=== PATIENT | male | born 1940 | race African-American/Black ===

== ENCOUNTER 2017-05-22 14:40 | Inpatient (IN) | payer MEDICAID, MEDICARE ==
[2017-05-22] MEDS ORDERED: NACL 0.9% 500 ML 500 ML IV ONE (15:38)
--- NOTE | 2017-05-22 16:15 | XRay Report ---
Single view chest: Compared to 01/10/15. History: Possible sepsis. Findings: Normal cardiomediastinal silhouette. Trachea is midline. Suspicion of faint infiltrates left lower lobe not seen previously. Normal CP angles. Impression: Suspicion of infiltrates left lower lobe.
[2017-05-22 16:34] LABS: Hematocrit 37.7 % (35.5-45.6); Hemoglobin 12.7 gm/dl (11.8-15.2); Mean Corpuscular HGB Conc 34 % (32-34); Mean Corpuscular Hemoglobin 30 pg (28-32); Mean Corpuscular Volume 89 fl (84-94); Platelet Count 224 K/mm3 (140-440); Red Blood Count 4.23 M/mm3 (3.65-5.03); Red Cell Distribution Width 13.9 % (13.2-15.2)
[2017-05-22 16:42] LABS: INR 1.06 (0.87-1.13)
[2017-05-22 16:46] LABS: Alanine Aminotransferase 138 units/L (7-56); Albumin 3.2 g/dL (3.9-5); Albumin/Globulin Ratio 0.9 %; Alkaline Phosphatase 230 units/L (35-129); Anion Gap 21 mmol/L; BUN/Creatinine Ratio 21.25; Blood Urea Nitrogen 17 mg/dL (9-20); Calcium 8.4 mg/dL (8.4-10.2); Carbon Dioxide 21 mmol/L (22-30); Chloride 97.1 mmol/L (98-107); Glucose 184 mg/dL (75-100); Potassium 3.4 mmol/L (3.6-5.0); Sodium 136 mmol/L (137-145); Total Protein 6.9 g/dL (6.3-8.2)
[2017-05-22] MEDS ORDERED: NACL 0.9% 1000 ML IV ONE ×2 (17:05→18:38)
[2017-05-22] MEDS ORDERED: VANCOMYCIN VIAL IV ONE (17:07)
[2017-05-22] MEDS ORDERED: ROCEPHIN/NS 1 GM/50 ML 1 GM/50 ML BAG IV ONE (17:07)
--- NOTE | 2017-05-22 17:08 | Emergency Department Report ---
ED General Adult HPI - General Chief complaint: Fever Stated complaint: [place] Time Seen by Provider: 05/22/17 16:27 Source: patient, EMS Mode of arrival: Ambulatory Limitations: No Limitations - History of Present Illness Initial comments: Patient is a 77-year-old male past medical history of asthma and diabetes who presents with shortness of breath and difficulty breathing. History obtained by [employer] interpreter. She was having shortness of breath and difficulty breathing for the last couple days. He also was having shaking and body aches. He states that he is unaware of how high his fever has been. However he doesn 't know what makes it better or worse. Patient has also been having a productive cough for the last couple days. Patient denies having any chest pain. Patient has some difficulty urinating due to enlarged prostate he is scheduled to see a urologist on Thursday. - Related Data Home Medications Medication Instructions Recorded Confirmed Last Taken Aspirin 81 mg PO DAILY 05/22/17 05/22/17 Unknown Donepezil 5 mg PO DAILY 05/22/17 05/22/17 Unknown Levocetirizine Dihydrochloride 5 mg PO DAILY 05/22/17 05/22/17 Unknown Magnesium 250 mg PO DAILY 05/22/17 05/22/17 Unknown Meclizine 12.5 mg PO DAILY 05/22/17 05/22/17 Unknown Montelukast 10 mg PO DAILY 05/22/17 05/22/17 Unknown NexIUM 40 mg PO DAILY 05/22/17 05/22/17 Unknown ProAir HFA Inhaler 9 mcg INHALATION BID 05/22/17 05/22/17 Unknown Simvastatin 20 mg PO HS 05/22/17 05/22/17 Unknown Tylenol /Codeine # 3 tab 300 mg PO BID 05/22/17 05/22/17 Unknown Vitamin C 500 mg PO DAILY 05/22/17 05/22/17 Unknown Allergies Allergy/AdvReac Type Severity Reaction Status Date / Time No Known Allergies Allergy Verified 05/22/17 15:44 ED Review of Systems ROS: Stated complaint: B[place] Other details as noted in HPI Constitutional: denies: chills, fever Eyes: denies: eye pain, eye discharge, vision change ENT: denies: ear pain, throat pain Respiratory: cough, shortness of breath. denies: wheezing Cardiovascular: denies: chest pain, palpitations Endocrine: no symptoms reported Gastrointestinal: denies: abdominal pain, nausea, diarrhea Genitourinary: as per HPI, dysuria. denies: urgency Musculoskeletal: denies: back pain, joint swelling, arthralgia Skin: denies: rash, lesions Neurological: denies: headache, weakness, paresthesias Psychiatric: denies: anxiety, depression Hematological/Lymphatic: denies: easy bleeding, easy bruising ED Past Medical Hx - Past Medical History Previous Medical History?: Yes Hx Diabetes: Yes Hx Asthma: Yes Hx Dementia: Yes - Surgical History Past Surgical History?: No - Social History Smoking Status: Never Smoker Substance Use Type: None - Medications Home Medications: Home Medications Medication Instructions Recorded Confirmed Last Taken Type Aspirin 81 mg PO DAILY 05/22/17 05/22/17 Unknown History Donepezil 5 mg PO DAILY 05/22/17 05/22/17 Unknown History Levocetirizine Dihydrochloride 5 mg PO DAILY 05/22/17 05/22/17 Unknown History Magnesium 250 mg PO DAILY 05/22/17 05/22/17 Unknown History Meclizine 12.5 mg PO DAILY 05/22/17 05/22/17 Unknown History Montelukast 10 mg PO DAILY 05/22/17 05/22/17 Unknown History NexIUM 40 mg PO DAILY 05/22/17 05/22/17 Unknown History ProAir HFA Inhaler 9 mcg INHALATION BID 05/22/17 05/22/17 Unknown History Simvastatin 20 mg PO HS 05/22/17 05/22/17 Unknown History Tylenol /Codeine # 3 tab 300 mg PO BID 05/22/17 05/22/17 Unknown History Vitamin C 500 mg PO DAILY 05/22/17 05/22/17 Unknown History ED Physical Exam - General Limitations: No Limitations General appearance: alert - Head Head exam: Present: atraumatic, normocephalic - Eye Eye exam: Present: normal appearance - ENT ENT exam: Present: mucous membranes moist - Neck Neck exam: Present: normal inspection - Respiratory Respiratory exam: Present: wheezes. Absent: respiratory distress - Cardiovascular Cardiovascular Exam: Present: tachycardia. Absent: systolic murmur, diastolic murmur, rubs, gallop - GI/Abdominal GI/Abdominal exam: Present: soft, normal bowel sounds - Rectal Rectal exam: Present: deferred - Extremities Exam Extremities exam: Present: normal inspection - Back Exam Back exam: Present: normal inspection - Neurological Exam Neurological exam: Present: alert, oriented X3 - Psychiatric Psychiatric exam: Present: normal affect, normal mood - Skin Skin exam: Present: warm, dry, intact, normal color. Absent: rash ED Course Vital Signs 05/22/17 05/22/17 05/22/17 15:20 19:20 20:15 Temperature 99.6 F 98.2 F Pulse Rate 123 H 90 Respiratory 26 H 20 Rate Blood Pressure 135/78 Blood Pressure 128/78 [Left] O2 Sat by Pulse 99 98 Oximetry ED Medical Decision Making - Lab Data Result diagrams: 05/22/17 15:58 05/22/17 15:58 Lab Results 05/22/17 05/22/17 05/22/17 Range/Units 15:58 15:58 15:58 WBC 14.0 H (4.5-11.0) K/mm3 RBC 4.23 (3.65-5.03) M/mm3 Hgb 12.7 (11.8-15.2) gm/dl Hct 37.7 (35.5-45.6) % MCV 89 (84-94) fl MCH 30 (28-32) pg MCHC 34 (32-34) % RDW 13.9 (13.2-15.2) % Plt Count 224 (140-440) K/mm3 Add Manual Diff Complete Total Counted 100 Seg Neutrophils % Bench Scientist Seg Neuts % (Manual) 88.0 H (40.0-70.0) % Band Neutrophils % 0 % Lymphocytes % (Manual) 7.0 L (13.4-35.0) % Reactive Lymphs % (Man) 0 % Monocytes % (Manual) 4.0 (0.0-7.3) % Eosinophils % (Manual) 0 (0.0-4.3) % Basophils % (Manual) 0 (0.0-1.8) % Metamyelocytes % 1.0 % Myelocytes % 0 % Promyelocytes % 0 % Blast Cells % 0 % Nucleated RBC % Not Reportable Seg Neutrophils # Man 12.3 H (1.8-7.7) K/mm3 Band Neutrophils # 0.0 K/mm3 Lymphocytes # (Manual) 1.0 L (1.2-5.4) K/mm3 Abs React Lymphs (Man) 0.0 K/mm3 Monocytes # (Manual) 0.6 (0.0-0.8) K/mm3 Eosinophils # (Manual) 0.0 (0.0-0.4) K/mm3 Basophils # (Manual) 0.0 (0.0-0.1) K/mm3 Metamyelocytes # 0.1 K/mm3 Myelocytes # 0.0 K/mm3 Promyelocytes # 0.0 K/mm3 Blast Cells # 0.0 K/mm3 WBC Morphology Not Reportable Hypersegmented Neuts Not Reportable Hyposegmented Neuts Not Reportable Hypogranular Neuts Not Reportable Smudge Cells Not Reportable Toxic Granulation Not Reportable Toxic Vacuolation Not Reportable Dohle Bodies Not Reportable Pelger-Huet Anomaly Not Reportable Rosa Rods Not Reportable Platelet Estimate Consistent w auto Clumped Platelets Not Reportable Plt Clumps, EDTA Not Reportable Large Platelets Not Reportable Giant Platelets Not Reportable Platelet Satelliting Not Reportable Plt Morphology Comment Not Reportable RBC Morphology Normal Dimorphic RBCs Not Reportable Polychromasia Not Reportable Hypochromasia Not Reportable Poikilocytosis Not Reportable Anisocytosis Not Reportable Microcytosis Not Reportable Macrocytosis Not Reportable Spherocytes Not Reportable Pappenheimer Bodies Not Reportable Sickle Cells Not Reportable Target Cells Not Reportable Tear Drop Cells Not Reportable Ovalocytes Not Reportable Helmet Cells Not Reportable Richard-[place] Bodies Not Reportable Harris Rings Not Reportable [place] Cells Not Reportable Bite Cells Not Reportable Crenated Cell Not Reportable Elliptocytes Not Reportable Acanthocytes (Spur) Not Reportable Rouleaux Not Reportable Hemoglobin C Crystals Not Reportable Schistocytes Not Reportable Malaria parasites Not Reportable Wilberto Bodies Not Reportable Hem Pathologist Commnt No PT 14.3 (12.2-14.9) Sec. INR 1.06 (0.87-1.13) VBG pH (7.320-7.420) Sodium 136 L (137-145) mmol/L Potassium 3.4 L (3.6-5.0) mmol/L Chloride 97.1 L (98-107) mmol/L Carbon Dioxide 21 L (22-30) mmol/L Anion Gap 21 mmol/L BUN 17 (9-20) mg/dL Creatinine 0.8 (0.8-1.5) mg/dL Estimated GFR > 60 ml/min BUN/Creatinine Ratio 21.25 % Glucose 184 H (75-100) mg/dL Lactic Acid (0.7-2.0) mmol/L Calcium 8.4 (8.4-10.2) mg/dL Total Bilirubin 1.00 (0.1-1.2) mg/dL AST 50 H (5-40) units/L ALT 138 H (7-56) units/L Alkaline Phosphatase 230 H (35-129) units/L Troponin T (0.00-0.029) ng/mL NT-Pro-B Natriuret Pep (0-900) pg/mL Total Protein 6.9 (6.3-8.2) g/dL Albumin 3.2 L (3.9-5) g/dL Albumin/Globulin Ratio 0.9 % Urine Color (Yellow) Urine Turbidity (Clear) Urine pH (5.0-7.0) Ur Specific [place] (1.003-1.030) Urine Protein (Negative) mg/dL Urine Glucose (UA) (Negative) mg/dL Urine Ketones (Negative) mg/dL Urine Blood (Negative) Urine Nitrite (Negative) Urine Bilirubin (Negative) Urine Urobilinogen (<2.0) mg/dL Ur Leukocyte Esterase (Negative) Urine WBC (Auto) (0.0-6.0) /HPF Urine RBC (Auto) (0.0-6.0) /HPF U Epithel Cells (Auto) (0-13.0) /HPF Urine Mucus /HPF Hepatitis A IgM Ab (NonReactive) Hep Bs Antigen (Negative) Hep B Core IgM Ab (NonReactive) Hepatitis C Antibody (NonReactive) Blood Type Antibody Screen 05/22/17 05/22/17 05/22/17 Range/Units 15:58 15:58 15:58 WBC (4.5-11.0) K/mm3 RBC (3.65-5.03) M/mm3 Hgb (11.8-15.2) gm/dl Hct (35.5-45.6) % MCV (84-94) fl MCH (28-32) pg MCHC (32-34) % RDW (13.2-15.2) % Plt Count (140-440) K/mm3 Add Manual Diff Total Counted Seg Neutrophils % Seg Neuts % (Manual) (40.0-70.0) % Band Neutrophils % % Lymphocytes % (Manual) (13.4-35.0) % Reactive Lymphs % (Man) % Monocytes % (Manual) (0.0-7.3) % Eosinophils % (Manual) (0.0-4.3) % Basophils % (Manual) (0.0-1.8) % Metamyelocytes % % Myelocytes % % Promyelocytes % % Blast Cells % % Nucleated RBC % Seg Neutrophils # Man (1.8-7.7) K/mm3 Band Neutrophils # K/mm3 Lymphocytes # (Manual) (1.2-5.4) K/mm3 Abs React Lymphs (Man) K/mm3 Monocytes # (Manual) (0.0-0.8) K/mm3 Eosinophils # (Manual) (0.0-0.4) K/mm3 Basophils # (Manual) (0.0-0.1) K/mm3 Metamyelocytes # K/mm3 Myelocytes # K/mm3 Promyelocytes # K/mm3 Blast Cells # K/mm3 WBC Morphology Hypersegmented Neuts Hyposegmented Neuts Hypogranular Neuts Smudge Cells Toxic Granulation Toxic Vacuolation Dohle Bodies Pelger-Huet Anomaly Rosa Rods Platelet Estimate Clumped Platelets Plt Clumps, EDTA Large Platelets Giant Platelets Platelet Satelliting Plt Morphology Comment RBC Morphology Dimorphic RBCs Polychromasia Hypochromasia Poikilocytosis Anisocytosis Microcytosis Macrocytosis Spherocytes Pappenheimer Bodies Sickle Cells Target Cells Tear Drop Cells Ovalocytes Helmet Cells Richard-[place] Bodies Harris Rings [place] Cells Bite Cells Crenated Cell Elliptocytes Acanthocytes (Spur) Rouleaux Hemoglobin C Crystals Schistocytes Malaria parasites Wilberto Bodies Hem Pathologist Commnt PT (12.2-14.9) Sec. INR (0.87-1.13) VBG pH 7.405 (7.320-7.420) Sodium (137-145) mmol/L Potassium (3.6-5.0) mmol/L Chloride (98-107) mmol/L Carbon Dioxide (22-30) mmol/L Anion Gap mmol/L BUN (9-20) mg/dL Creatinine (0.8-1.5) mg/dL Estimated GFR ml/min BUN/Creatinine Ratio % Glucose (75-100) mg/dL Lactic Acid 3.50 H* (0.7-2.0) mmol/L Calcium (8.4-10.2) mg/dL Total Bilirubin (0.1-1.2) mg/dL AST (5-40) units/L ALT (7-56) units/L Alkaline Phosphatase (35-129) units/L Troponin T < 0.010 (0.00-0.029) ng/mL NT-Pro-B Natriuret Pep 161.1 (0-900) pg/mL Total Protein (6.3-8.2) g/dL Albumin (3.9-5) g/dL Albumin/Globulin Ratio % Urine Color (Yellow) Urine Turbidity (Clear) Urine pH (5.0-7.0) Ur Specific [place] (1.003-1.030) Urine Protein (Negative) mg/dL Urine Glucose (UA) (Negative) mg/dL Urine Ketones (Negative) mg/dL Urine Blood (Negative) Urine Nitrite (Negative) Urine Bilirubin (Negative) Urine Urobilinogen (<2.0) mg/dL Ur Leukocyte Esterase (Negative) Urine WBC (Auto) (0.0-6.0) /HPF Urine RBC (Auto) (0.0-6.0) /HPF U Epithel Cells (Auto) (0-13.0) /HPF Urine Mucus /HPF Hepatitis A IgM Ab (NonReactive) Hep Bs Antigen (Negative) Hep B Core IgM Ab (NonReactive) Hepatitis C Antibody (NonReactive) Blood Type Antibody Screen 05/22/17 05/22/17 05/22/17 Range/Units 16:43 18:09 21:34 WBC (4.5-11.0) K/mm3 RBC (3.65-5.03) M/mm3 Hgb (11.8-15.2) gm/dl Hct (35.5-45.6) % MCV (84-94) fl MCH (28-32) pg MCHC (32-34) % RDW (13.2-15.2) % Plt Count (140-440) K/mm3 Add Manual Diff Total Counted Seg Neutrophils % Seg Neuts % (Manual) (40.0-70.0) % Band Neutrophils % % Lymphocytes % (Manual) (13.4-35.0) % Reactive Lymphs % (Man) % Monocytes % (Manual) (0.0-7.3) % Eosinophils % (Manual) (0.0-4.3) % Basophils % (Manual) (0.0-1.8) % Metamyelocytes % % Myelocytes % % Promyelocytes % % Blast Cells % % Nucleated RBC % Seg Neutrophils # Man (1.8-7.7) K/mm3 Band Neutrophils # K/mm3 Lymphocytes # (Manual) (1.2-5.4) K/mm3 Abs React Lymphs (Man) K/mm3 Monocytes # (Manual) (0.0-0.8) K/mm3 Eosinophils # (Manual) (0.0-0.4) K/mm3 Basophils # (Manual) (0.0-0.1) K/mm3 Metamyelocytes # K/mm3 Myelocytes # K/mm3 Promyelocytes # K/mm3 Blast Cells # K/mm3 WBC Morphology Hypersegmented Neuts Hyposegmented Neuts Hypogranular Neuts Smudge Cells Toxic Granulation Toxic Vacuolation Dohle Bodies Pelger-Huet Anomaly Rosa Rods Platelet Estimate Clumped Platelets Plt Clumps, EDTA Large Platelets Giant Platelets Platelet Satelliting Plt Morphology Comment RBC Morphology Dimorphic RBCs Polychromasia Hypochromasia Poikilocytosis Anisocytosis Microcytosis Macrocytosis Spherocytes Pappenheimer Bodies Sickle Cells Target Cells Tear Drop Cells Ovalocytes Helmet Cells Richard-[place] Bodies Harris Rings [place] Cells Bite Cells Crenated Cell Elliptocytes Acanthocytes (Spur) Rouleaux Hemoglobin C Crystals Schistocytes Malaria parasites Wilberto Bodies Hem Pathologist Commnt PT (12.2-14.9) Sec. INR (0.87-1.13) VBG pH (7.320-7.420) Sodium (137-145) mmol/L Potassium (3.6-5.0) mmol/L Chloride (98-107) mmol/L Carbon Dioxide (22-30) mmol/L Anion Gap mmol/L BUN (9-20) mg/dL Creatinine (0.8-1.5) mg/dL Estimated GFR ml/min BUN/Creatinine Ratio % Glucose (75-100) mg/dL Lactic Acid 2.50 H* (0.7-2.0) mmol/L Calcium (8.4-10.2) mg/dL Total Bilirubin (0.1-1.2) mg/dL AST (5-40) units/L ALT (7-56) units/L Alkaline Phosphatase (35-129) units/L Troponin T (0.00-0.029) ng/mL NT-Pro-B Natriuret Pep (0-900) pg/mL Total Protein (6.3-8.2) g/dL Albumin (3.9-5) g/dL Albumin/Globulin Ratio % Urine Color Yellow (Yellow) Urine Turbidity Clear (Clear) Urine pH 5.0 (5.0-7.0) Ur Specific [place] 1.016 (1.003-1.030) Urine Protein 30 mg/dl (Negative) mg/dL Urine Glucose (UA) 50 (Negative) mg/dL Urine Ketones Tr (Negative) mg/dL Urine Blood Mod (Negative) Urine Nitrite Neg (Negative) Urine Bilirubin Neg (Negative) Urine Urobilinogen < 2.0 (<2.0) mg/dL Ur Leukocyte Esterase Neg (Negative) Urine WBC (Auto) 1.0 (0.0-6.0) /HPF Urine RBC (Auto) 1.0 (0.0-6.0) /HPF U Epithel Cells (Auto) < 1.0 (0-13.0) /HPF Urine Mucus Few /HPF Hepatitis A IgM Ab (NonReactive) Hep Bs Antigen (Negative) Hep B Core IgM Ab (NonReactive) Hepatitis C Antibody (NonReactive) Blood Type A POSITIVE Antibody Screen Negative 05/22/17 05/22/17 Range/Units 21:34 21:34 WBC (4.5-11.0) K/mm3 RBC (3.65-5.03) M/mm3 Hgb (11.8-15.2) gm/dl Hct (35.5-45.6) % MCV (84-94) fl MCH (28-32) pg MCHC (32-34) % RDW (13.2-15.2) % Plt Count (140-440) K/mm3 Add Manual Diff Total Counted Seg Neutrophils % Seg Neuts % (Manual) (40.0-70.0) % Band Neutrophils % % Lymphocytes % (Manual) (13.4-35.0) % Reactive Lymphs % (Man) % Monocytes % (Manual) (0.0-7.3) % Eosinophils % (Manual) (0.0-4.3) % Basophils % (Manual) (0.0-1.8) % Metamyelocytes % % Myelocytes % % Promyelocytes % % Blast Cells % % Nucleated RBC % Seg Neutrophils # Man (1.8-7.7) K/mm3 Band Neutrophils # K/mm3 Lymphocytes # (Manual) (1.2-5.4) K/mm3 Abs React Lymphs (Man) K/mm3 Monocytes # (Manual) (0.0-0.8) K/mm3 Eosinophils # (Manual) (0.0-0.4) K/mm3 Basophils # (Manual) (0.0-0.1) K/mm3 Metamyelocytes # K/mm3 Myelocytes # K/mm3 Promyelocytes # K/mm3 Blast Cells # K/mm3 WBC Morphology Hypersegmented Neuts Hyposegmented Neuts Hypogranular Neuts Smudge Cells Toxic Granulation Toxic Vacuolation Dohle Bodies Pelger-Huet Anomaly Rosa Rods Platelet Estimate Clumped Platelets Plt Clumps, EDTA Large Platelets Giant Platelets Platelet Satelliting Plt Morphology Comment RBC Morphology Dimorphic RBCs Polychromasia Hypochromasia Poikilocytosis Anisocytosis Microcytosis Macrocytosis Spherocytes Pappenheimer Bodies Sickle Cells Target Cells Tear Drop Cells Ovalocytes Helmet Cells Richard-[place] Bodies Harris Rings [place] Cells Bite Cells Crenated Cell Elliptocytes Acanthocytes (Spur) Rouleaux Hemoglobin C Crystals Schistocytes Malaria parasites Wilberto Bodies Hem Pathologist Commnt PT (12.2-14.9) Sec. INR (0.87-1.13) VBG pH (7.320-7.420) Sodium (137-145) mmol/L Potassium (3.6-5.0) mmol/L Chloride (98-107) mmol/L Carbon Dioxide (22-30) mmol/L Anion Gap mmol/L BUN (9-20) mg/dL Creatinine (0.8-1.5) mg/dL Estimated GFR ml/min BUN/Creatinine Ratio % Glucose (75-100) mg/dL Lactic Acid 1.70 (0.7-2.0) mmol/L Calcium (8.4-10.2) mg/dL Total Bilirubin (0.1-1.2) mg/dL AST (5-40) units/L ALT (7-56) units/L Alkaline Phosphatase (35-129) units/L Troponin T (0.00-0.029) ng/mL NT-Pro-B Natriuret Pep (0-900) pg/mL Total Protein (6.3-8.2) g/dL Albumin (3.9-5) g/dL Albumin/Globulin Ratio % Urine Color (Yellow) Urine Turbidity (Clear) Urine pH (5.0-7.0) Ur Specific [place] (1.003-1.030) Urine Protein (Negative) mg/dL Urine Glucose (UA) (Negative) mg/dL Urine Ketones (Negative) mg/dL Urine Blood (Negative) Urine Nitrite (Negative) Urine Bilirubin (Negative) Urine Urobilinogen (<2.0) mg/dL Ur Leukocyte Esterase (Negative) Urine WBC (Auto) (0.0-6.0) /HPF Urine RBC (Auto) (0.0-6.0) /HPF U Epithel Cells (Auto) (0-13.0) /HPF Urine Mucus /HPF Hepatitis A IgM Ab Non-reactive (NonReactive) Hep Bs Antigen Non-reactive (Negative) Hep B Core IgM Ab Non-reactive (NonReactive) Hepatitis C Antibody Non-reactive (NonReactive) Blood Type Antibody Screen - EKG Data -: EKG Interpreted by Nh - EKG Data 05/22/17 17:38 Sinus tachycardia no axis deviation no T wave inversions or ST segment elevation. - Radiology Data Radiology results: report reviewed, image reviewed Chest x-ray: Shows left lower infiltrate concerning for pneumonia - Medical Decision Making Chief medical diagnosis: Pneumonia Differential diagnosis: UTI, cellulitis, metabolic abnormality, non-STEMI, heart failure I will get CBC, CMP, chest x-ray, IV antibiotics, 30 mL per kilo bolus, blood cultures Patient has pneumonia and has sepsis based on elevated lactic acid, tachycardia and respiration rate is above 20. Patient's O2 sat is 98% on room air. Patient will need to be admitted to the hospital due to life-threatening condition. Discussed plan with patient and family. They agree with plan. She will need to be reassessed and then wall need another lactic level drawn. Critical Care Time: Yes (30) Critical care time in (mins) excluding proc time.: 30 Critical care attestation.: If time is entered above; I have spent that time in minutes in the direct care of this critically ill patient, excluding procedure time. Critical care time spent at patient's bedside 20 minutes Critical care time spent with family members 5 minutes Critical care time spent reviewing patient's labs 5 minutes Critical care time spent with consultants 3 minutes Critical care time spent reviewing all labs 2 minutes ED Disposition Clinical Impression: Elevated lactic acid level Sepsis Qualifiers: Sepsis type: sepsis due to unspecified organism Qualified Code(s): A41.9 - Sepsis, unspecified organism Pneumonia Qualifiers: Pneumonia type: due to unspecified organism Laterality: left Lung location: lower lobe of lung Qualified Code(s): J18.1 - Lobar pneumonia, unspecified organism Fever Qualifiers: Fever type: unspecified Qualified Code(s): R50.9 - Fever, unspecified Disposition: DC-09 OP ADMIT IP TO THIS HOSP Is pt being admited?: Yes Does the pt Need Aspirin: No Condition: Stable
[2017-05-22] MEDS ORDERED: VANCOMYCIN 1,500 MG in NACL 0.9% 500 ML 500 ML IV ONE (17:45)
[2017-05-22] MEDS ORDERED: VANCOMYCIN PHARMACY TO DOSE IV SCH (18:00)
[2017-05-22] MEDS ORDERED: ZITHROMAX 500 MG in NACL 0.9% 250ML 250 ML IV ONE (18:00)
--- NOTE | 2017-05-22 18:09 | History and Physical Report ---
History of Present Illness Chief complaint: I have fever, and its hard to breathe, History of present illness: 77 YO Male with DM, Asthma, Dementia presents to ED for evaluation. Pt states that he as experienced subjective fever, and difficulty breathing for the past 2 days, with worsening symptoms over the past 8 hours. Pt acknowledges fever but denies shaking chills, CP, Palpitations, NVD, Syncope, BRBPR, Recent ill contacts, skin rashes, hemoptysis, unintentional weight loss, or night sweats. Pt seen and evaluated in ED and found to have Pneumonia and sepsis. Pt initiated on sepsis protocol. Past History Past Medical History: diabetes, other (asthma, dementia) Past Surgical History: No surgical history, Other (reviewed) Social history: , lives with family. denies: smoking, alcohol abuse, prescription drug abuse Family history: no significant family history (reviewed) Medications and Allergies Allergies Allergy/AdvReac Type Severity Reaction Status Date / Time No Known Allergies Allergy Verified 05/22/17 15:44 Home Medications Medication Instructions Recorded Confirmed Last Taken Type Aspirin 81 mg PO DAILY 05/22/17 05/22/17 Unknown History Donepezil 5 mg PO DAILY 05/22/17 05/22/17 Unknown History Levocetirizine Dihydrochloride 5 mg PO DAILY 05/22/17 05/22/17 Unknown History Magnesium 250 mg PO DAILY 05/22/17 05/22/17 Unknown History Meclizine 12.5 mg PO DAILY 05/22/17 05/22/17 Unknown History Montelukast 10 mg PO DAILY 05/22/17 05/22/17 Unknown History NexIUM 40 mg PO DAILY 05/22/17 05/22/17 Unknown History ProAir HFA Inhaler 9 mcg INHALATION BID 05/22/17 05/22/17 Unknown History Simvastatin 20 mg PO HS 05/22/17 05/22/17 Unknown History Tylenol /Codeine # 3 tab 300 mg PO BID 05/22/17 05/22/17 Unknown History Vitamin C 500 mg PO DAILY 05/22/17 05/22/17 Unknown History Active Meds: Active Medications Azithromycin 500 mg/ Sodium (Chloride) 250 mls @ 250 mls/hr IV ONCE.ED ONE Stop: 05/22/17 18:59 Last Admin: 05/22/17 18:01 Dose: 250 mls/hr Vancomycin HCl 1,500 mg/ (Sodium Chloride) 515 mls @ 333.333 mls/hr IV ONCE.ED ONE Stop: 05/22/17 19:17 Vancomycin HCl (Vancomycin Pharmacy To Dose) 1 each IV PKCONSULT KARUNA PRN Reason: Protocol Review of Systems Constitutional: fever, no weight loss, no weight gain, no chills, no sweats, no night sweats Ears, nose, mouth and throat: no ear pain, no ear discharge, no tinnitis, no decreased hearing, no nose pain Cardiovascular: shortness of breath, no chest pain, no orthopnea, no palpitations, no rapid/irregular heart beat, no edema, no syncope Respiratory: shortness of breath, no cough, no cough with sputum, no excessive sputum, no hemoptysis Gastrointestinal: no abdominal pain, no nausea, no vomiting, no diarrhea, no constipation Genitourinary Male: no hematuria, no flank pain, no discharge, no urinary frequency, no urinary hesitancy, no nocturia Rectal: no pain, no incontinence, no bleeding Musculoskeletal: no neck stiffness, no neck pain, no shooting arm pain, no arm numbness/tingling, no low back pain, no shooting leg pain Integumentary: no rash, no pruritis, no redness, no sores, no wounds, no jaundice, no boils Neurological: no head injury, no transient paralysis, no paralysis, no weakness , no parathesias, no numbness, no tingling Psychiatric: no anxiety, no memory loss, no change in sleep habits, no sleep disturbances, no insomnia, no hypersomnia, no change in appetite Endocrine: no cold intolerance, no heat intolerance, no polyphagia, no excessive thirst, no polydipsia, no polyuria Hematologic/Lymphatic: no easy bruising, no easy bleeding Allergic/Immunologic: no urticaria, no allergic rhinitis, no wheezing Exam - Constitutional Vitals: Temp Pulse Resp BP Pulse Ox 99.6 F 123 H 26 H 135/78 99 05/22/17 15:20 05/22/17 15:20 05/22/17 15:20 05/22/17 15:20 05/22/17 15:20 General appearance: Present: mild distress - EENT Eyes: Present: PERRL ENT: hearing intact, clear oral mucosa - Neck Neck: Present: supple, normal ROM - Respiratory Respiratory effort: labored Respiratory: left: diminished - Cardiovascular Heart Sounds: Present: S1 & S2. Absent: rub, click - Extremities Extremities: pulses symmetrical, No edema Peripheral Pulses: abnormal (Capillary refill: 3.6 seconds) - Abdominal General gastrointestinal: Present: soft, non-tender, non-distended, normal bowel sounds Male genitourinary: Present: normal - Rectal Rectal Exam: normal rectal tone - Integumentary Integumentary: Present: clear, dry, decreased turgor - Musculoskeletal Musculoskeletal: generalized weakness - Psychiatric Psychiatric: no appropriate mood/affect - Neurologic Neurologic: CNII-XII intact, moves all extremities Results - Labs CBC & Chem 7: 05/22/17 15:58 05/22/17 15:58 Labs: Abnormal lab results 05/22/17 05/22/17 05/22/17 Range/Units 15:58 15:58 15:58 WBC 14.0 H (4.5-11.0) K/mm3 Sodium 136 L (137-145) mmol/L Potassium 3.4 L (3.6-5.0) mmol/L Chloride 97.1 L (98-107) mmol/L Carbon Dioxide 21 L (22-30) mmol/L Glucose 184 H (75-100) mg/dL Lactic Acid 3.50 H* (0.7-2.0) mmol/L AST 50 H (5-40) units/L ALT 138 H (7-56) units/L Alkaline Phosphatase 230 H (35-129) units/L Albumin 3.2 L (3.9-5) g/dL Assessment and Plan - Patient Problems (1) Sepsis Current Visit: Yes Status: Acute Qualifiers: Sepsis type: S Plan to address problem: IV abx, IVF, serial lactic acid, supportive care, monitor uop q shift, blood cultures, (2) Pneumonia Current Visit: Yes Status: Acute Qualifiers: Pneumonia type: P Aspiration pneumonia type: A Laterality: L Lung location: L Plan to address problem: IV abx, incentive spirometry, blood cultures, supplemental oxygen, nebs, (3) Metabolic acidosis Current Visit: Yes Status: Acute Plan to address problem: Treat sepsis, repeat bmp. (4) Respiratory failure Current Visit: Yes Status: Acute Qualifiers: Chronicity: C Respiratory failure complication: R Plan to address problem: supplemental oxygen, nebs, aspiration precautions, NIPPV as clinically indicated. (5) Elevated LFTs Current Visit: Yes Status: Acute Plan to address problem: supportive care, hepatitis panel (6) Hyponatremia syndrome Current Visit: Yes Status: Acute Plan to address problem: IVF replacement, monitor uop q shift, (7) DVT prophylaxis Current Visit: Yes Status: Acute
[2017-05-22 18:10] LABS: Bilirubin,Urine NEG (Negative); Blood,Urine MOD (Negative); Ketones,Urine TR mg/dL (Negative); Leukocyte Esterase,Urine NEG (Negative); Mucus,Urine FEW /HPF; Nitrite,Urine NEG (Negative); Urobilinogen,Urine < 2.0 mg/dL (<2.0)
[2017-05-22] MEDS ORDERED: PROVENTIL IH PRN (18:38)
[2017-05-22] MEDS ORDERED: MILK OF MAGNESIA PO PRN (18:38)
[2017-05-22] MEDS ORDERED: DULCOLAX PR PRN (18:38)
[2017-05-22] MEDS ORDERED: ZOFRAN IV PRN (18:38)
[2017-05-22 18:44] LABS: Basophils % (Manual) 0 % (0.0-1.8); Blastocytes % (Manual) 0 %
[2017-05-22 18:45] LABS: Diff Status Complete; Eosinophils % (Manual) 0 % (0.0-4.3); Platelet Estimate Consistent w Auto; RBC Morphology Normal
[2017-05-23] MEDS ORDERED: VANCOMYCIN/NS 1 GM/250 ML 1 GM/250 ML BAG IV SCH (10:00)
[2017-05-23] MEDS: ZITHROMAX 500 MG in NACL 0.9% 250ML 250 ML IV SCH (11:30)
--- NOTE | 2017-05-23 11:42 | Progress Note ---
Assessment and Plan Assessment and plan: 77 YO Male with DM, Asthma, Dementia presents to ED for evaluation. Pt states that he as experienced subjective fever, and difficulty breathing for the 2 days , ol. Sepsis 2/2 Aspiration PNA IV abx, IVF, serial lactic acid, supportive care, monitor uop q shift, blood cultures -continue abx, obtain speech eval Pneumonia continue IV abx, incentive spirometry, blood cultures, supplemental oxygen, nebs , COPD exacerbation Steroids, nebulizer, antibiotics, oxygen supplements Metabolic acidosis Treat sepsis, repeat bmp. Acute hypoxic Respiratory failure supplemental oxygen, nebs, aspiration precautions, NIPPV as clinically indicated. 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 Hospitalist Physical - Physical exam Narrative exam: General.: Appears well, no distress, nontoxic HEENT: Moist mucous membranes, extraocular muscles intact, no lymphadenopathy Neck: supple Cardiac: S1-S2 heard Lungs: His returning to [place] wheezing Abdomen: soft , nontender, nondistended, bowel sounds positive Extremities: no edema clubbing or cyanosis Skin: no rash or lesions Neurologic: no gross focal deficits, responses are slow Psych: appropriate behavior, appropriate mood, corporative, judgment intact - Constitutional Vitals: Temp Pulse Resp BP Pulse Ox 98.9 F 85 18 149/61 97 05/23/17 09:00 05/23/17 09:17 05/23/17 09:17 05/23/17 09:00 05/23/17 09:00 General appearance: Present: mild distress Results - Labs CBC & Chem 7: 05/22/17 15:58 05/22/17 15:58 Labs: Laboratory Last Values WBC 14.0 K/mm3 (4.5-11.0) H 05/22/17 15:58 RBC 4.23 M/mm3 (3.65-5.03) 05/22/17 15:58 Hgb 12.7 gm/dl (11.8-15.2) 05/22/17 15:58 Hct 37.7 % (35.5-45.6) 05/22/17 15:58 MCV 89 fl (84-94) 05/22/17 15:58 MCH 30 pg (28-32) 05/22/17 15:58 MCHC 34 % (32-34) 05/22/17 15:58 RDW 13.9 % (13.2-15.2) 05/22/17 15:58 Plt Count 224 K/mm3 (140-440) 05/22/17 15:58 Add Manual Diff Complete 05/22/17 15:58 Total Counted 100 05/22/17 15:58 Seg Neutrophils % 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/22/17 15:58 Seg Neuts % (Manual) 88.0 % (40.0-70.0) H 05/22/17 15:58 Band Neutrophils % 0 % 05/22/17 15:58 Lymphocytes % (Manual) 7.0 % (13.4-35.0) L 05/22/17 15:58 Reactive Lymphs % (Man) 0 % 05/22/17 15:58 Monocytes % (Manual) 4.0 % (0.0-7.3) 05/22/17 15:58 Eosinophils % (Manual) 0 % (0.0-4.3) 05/22/17 15:58 Basophils % (Manual) 0 % (0.0-1.8) 05/22/17 15:58 Metamyelocytes % 1.0 % 05/22/17 15:58 Myelocytes % 0 % 05/22/17 15:58 Promyelocytes % 0 % 05/22/17 15:58 Blast Cells % 0 % 05/22/17 15:58 Nucleated RBC % Not Reportable 05/22/17 15:58 Seg Neutrophils # Man 12.3 K/mm3 (1.8-7.7) H 05/22/17 15:58 Band Neutrophils # 0.0 K/mm3 05/22/17 15:58 Lymphocytes # (Manual) 1.0 K/mm3 (1.2-5.4) L 05/22/17 15:58 Abs React Lymphs (Man) 0.0 K/mm3 05/22/17 15:58 Monocytes # (Manual) 0.6 K/mm3 (0.0-0.8) 05/22/17 15:58 Eosinophils # (Manual) 0.0 K/mm3 (0.0-0.4) 05/22/17 15:58 Basophils # (Manual) 0.0 K/mm3 (0.0-0.1) 05/22/17 15:58 Metamyelocytes # 0.1 K/mm3 05/22/17 15:58 Myelocytes # 0.0 K/mm3 05/22/17 15:58 Promyelocytes # 0.0 K/mm3 05/22/17 15:58 Blast Cells # 0.0 K/mm3 05/22/17 15:58 WBC Morphology Not Reportable 05/22/17 15:58 Hypersegmented Neuts Not Reportable 05/22/17 15:58 Hyposegmented Neuts Not Reportable 05/22/17 15:58 Hypogranular Neuts Not Reportable 05/22/17 15:58 Smudge Cells Not Reportable 05/22/17 15:58 Toxic Granulation Not Reportable 05/22/17 15:58 Toxic Vacuolation Not Reportable 05/22/17 15:58 Dohle Bodies Not Reportable 05/22/17 15:58 Pelger-Huet Anomaly Not Reportable 05/22/17 15:58 Rosa Rods Not Reportable 05/22/17 15:58 Platelet Estimate Consistent w auto 05/22/17 15:58 Clumped Platelets Not Reportable 05/22/17 15:58 Plt Clumps, EDTA Not Reportable 05/22/17 15:58 Large Platelets Not Reportable 05/22/17 15:58 Giant Platelets Not Reportable 05/22/17 15:58 Platelet Satelliting Not Reportable 05/22/17 15:58 Plt Morphology Comment Not Reportable 05/22/17 15:58 RBC Morphology Normal 05/22/17 15:58 Dimorphic RBCs Not Reportable 05/22/17 15:58 Polychromasia Not Reportable 05/22/17 15:58 Hypochromasia Not Reportable 05/22/17 15:58 Poikilocytosis Not Reportable 05/22/17 15:58 Anisocytosis Not Reportable 05/22/17 15:58 Microcytosis Not Reportable 05/22/17 15:58 Macrocytosis Not Reportable 05/22/17 15:58 Spherocytes Not Reportable 05/22/17 15:58 Pappenheimer Bodies Not Reportable 05/22/17 15:58 Sickle Cells Not Reportable 05/22/17 15:58 Target Cells Not Reportable 05/22/17 15:58 Tear Drop Cells Not Reportable 05/22/17 15:58 Ovalocytes Not Reportable 05/22/17 15:58 Helmet Cells Not Reportable 05/22/17 15:58 [place] Bodies Not Reportable 05/22/17 15:58 [place] Rings Not Reportable 05/22/17 15:58 Indu Cells Not Reportable 05/22/17 15:58 Bite Cells Not Reportable 05/22/17 15:58 Crenated Cell Not Reportable 05/22/17 15:58 Elliptocytes Not Reportable 05/22/17 15:58 Acanthocytes (Spur) Not Reportable 05/22/17 15:58 Rouleaux Not Reportable 05/22/17 15:58 Hemoglobin C Crystals Not Reportable 05/22/17 15:58 Schistocytes Not Reportable 05/22/17 15:58 Malaria parasites Not Reportable 05/22/17 15:58 Wilberto Bodies Not Reportable 05/22/17 15:58 Hem Pathologist Commnt No 05/22/17 15:58 PT 14.3 Sec. (12.2-14.9) 05/22/17 15:58 INR 1.06 (0.87-1.13) 05/22/17 15:58 VBG pH 7.405 (7.320-7.420) 05/22/17 15:58 Sodium 136 mmol/L (137-145) L 05/22/17 15:58 Potassium 3.4 mmol/L (3.6-5.0) L 05/22/17 15:58 Chloride 97.1 mmol/L (98-107) L 05/22/17 15:58 Carbon Dioxide 21 mmol/L (22-30) L 05/22/17 15:58 Anion Gap 21 mmol/L 05/22/17 15:58 BUN 17 mg/dL (9-20) 05/22/17 15:58 Creatinine 0.8 mg/dL (0.8-1.5) 05/22/17 15:58 Estimated GFR > 60 ml/min 05/22/17 15:58 BUN/Creatinine Ratio 21.25 % 05/22/17 15:58 Glucose 184 mg/dL (75-100) H 05/22/17 15:58 Lactic Acid 1.00 mmol/L (0.7-2.0) 05/23/17 00:48 Calcium 8.4 mg/dL (8.4-10.2) 05/22/17 15:58 Total Bilirubin 1.00 mg/dL (0.1-1.2) 05/22/17 15:58 AST 50 units/L (5-40) H 05/22/17 15:58 ALT 138 units/L (7-56) H 05/22/17 15:58 Alkaline Phosphatase 230 units/L (35-129) H 05/22/17 15:58 Troponin T < 0.010 ng/mL (0.00-0.029) 05/22/17 15:58 NT-Pro-B Natriuret Pep 161.1 pg/mL (0-900) 05/22/17 15:58 Total Protein 6.9 g/dL (6.3-8.2) 05/22/17 15:58 Albumin 3.2 g/dL (3.9-5) L 05/22/17 15:58 Albumin/Globulin Ratio 0.9 % 05/22/17 15:58 Urine Color Yellow (Yellow) 05/22/17 16:43 Urine Turbidity Clear (Clear) 05/22/17 16:43 Urine pH 5.0 (5.0-7.0) 05/22/17 16:43 Ur Specific [place] 1.016 (1.003-1.030) 05/22/17 16:43 Urine Protein 30 mg/dl mg/dL (Negative) 05/22/17 16:43 Urine Glucose (UA) 50 mg/dL (Negative) 05/22/17 16:43 Urine Ketones Tr mg/dL (Negative) 05/22/17 16:43 Urine Blood Mod (Negative) 05/22/17 16:43 Urine Nitrite Neg (Negative) 05/22/17 16:43 Urine Bilirubin Neg (Negative) 05/22/17 16:43 Urine Urobilinogen < 2.0 mg/dL (<2.0) 05/22/17 16:43 Ur Leukocyte Esterase Neg (Negative) 05/22/17 16:43 Urine WBC (Auto) 1.0 /HPF (0.0-6.0) 05/22/17 16:43 Urine RBC (Auto) 1.0 /HPF (0.0-6.0) 05/22/17 16:43 U Epithel Cells (Auto) < 1.0 /HPF (0-13.0) 05/22/17 16:43 Urine Mucus Few /HPF 05/22/17 16:43 Hepatitis A IgM Ab Non-reactive (NonReactive) 05/22/17 21:34 Hep Bs Antigen Non-reactive (Negative) 05/22/17 21:34 Hep B Core IgM Ab Non-reactive (NonReactive) 05/22/17 21:34 Hepatitis C Antibody Non-reactive (NonReactive) 05/22/17 21:34 Blood Type A POSITIVE 05/22/17 21:34 Antibody Screen Negative 05/22/17 21:34 - Imaging and Cardiology Chest x-ray: image reviewed (left lower lung infiltrates)
[2017-05-23] MEDS ORDERED: K-DUR PO ONE (11:45)
[2017-05-23] MEDS ORDERED: PROVENTIL IH SCH ×2 (12:05→22:00)
[2017-05-23] MEDS: ROCEPHIN/NS 2 GM/100 ML 2 GM/100 ML BAG IV SCH (12:15)
[2017-05-23] MEDS: TYLENOL PO PRN (12:56)
[2017-05-23] MEDS: DUONEB *Not for PRN Use IH SCH ×2 (13:35→20:00)
--- NOTE | 2017-05-23 15:58 | Consultation ---
History of Present Illness Consult date: 05/23/17 Requesting physician: JULIET ARGUETA Reason for consult: COPD History of present illness: 77 y/o male with COPD, still smoking admitted with COPD exacerbation. Started on very broad spec abx therapy and IV steroids. Per patient breathing is better. Smokes about 2-3 cigarettes daily. No chest pain and shortness of breath has improved. Remainder is negative. Past History Past Medical History: diabetes, other (asthma, dementia) Past Surgical History: No surgical history, Other (reviewed) Social history: , lives with family. denies: smoking, alcohol abuse, prescription drug abuse Family history: no significant family history (reviewed) Medications and Allergies Allergies Allergy/AdvReac Type Severity Reaction Status Date / Time No Known Allergies Allergy Verified 05/22/17 15:44 Home Medications Medication Instructions Recorded Confirmed Last Taken Type Aspirin 81 mg PO DAILY 05/22/17 05/22/17 Unknown History Donepezil 5 mg PO DAILY 05/22/17 05/22/17 Unknown History Levocetirizine Dihydrochloride 5 mg PO DAILY 05/22/17 05/22/17 Unknown History Magnesium 250 mg PO DAILY 05/22/17 05/22/17 Unknown History Meclizine 12.5 mg PO DAILY 05/22/17 05/22/17 Unknown History Montelukast 10 mg PO DAILY 05/22/17 05/22/17 Unknown History NexIUM 40 mg PO DAILY 05/22/17 05/22/17 Unknown History ProAir HFA Inhaler 9 mcg INHALATION BID 05/22/17 05/22/17 Unknown History Simvastatin 20 mg PO HS 05/22/17 05/22/17 Unknown History Tylenol /Codeine # 3 tab 300 mg PO BID 05/22/17 05/22/17 Unknown History Vitamin C 500 mg PO DAILY 05/22/17 05/22/17 Unknown History Active Meds: Active Medications Acetaminophen (Tylenol) 650 mg PO Q4H PRN PRN Reason: Pain MILD(1-3)/Fever >100.5/PICKETT Last Admin: 05/23/17 12:56 Dose: 650 mg Acetaminophen/Codeine Phosphate (Tylenol #3) 1 tab PO BID KARUNA Albuterol (Proventil) 2.5 mg IH Q4HRT PRN PRN Reason: Shortness Of Breath Last Admin: 05/23/17 09:16 Dose: 2.5 mg Albuterol/Ipratropium (Duoneb *Not For Prn Use*) 1 ampul IH Q6HRT COUNT INCLUDES THE [facility] Last Admin: 05/23/17 13:35 Dose: 1 ampul Arformoterol Tartrate (Brovana Nebu) 15 mcg IH Q12HRT COUNT INCLUDES THE [facility] Ascorbic Acid (Vitamin C) 500 mg PO QDAY COUNT INCLUDES THE [facility] Aspirin (Halfprin Ec) 81 mg PO QDAY COUNT INCLUDES THE [facility] Bisacodyl (Dulcolax) 10 mg NE QDAY PRN PRN Reason: Constipation unrelieved by [facility] Budesonide (Pulmicort) 0.5 mg IH Q12HRT COUNT INCLUDES THE [facility] Azithromycin 500 mg/ Sodium (Chloride) 250 mls @ 250 mls/hr IV Q24HR COUNT INCLUDES THE [facility] Last Admin: 05/23/17 11:30 Dose: 250 mls/hr Ceftriaxone Sodium (Rocephin/Ns 2 Gm/100 Ml) 2 gm in 100 mls @ 200 mls/hr IV Q24HR COUNT INCLUDES THE [facility] PRN Reason: Protocol Last Admin: 05/23/17 12:15 Dose: 200 mls/hr Vancomycin HCl (Vancomycin/Ns 1 Gm/250 Ml) 1 gm in 250 mls @ 166.667 mls/hr IV Q12HR COUNT INCLUDES THE [facility] Sodium Chloride (Nacl 0.9% 1000 Ml) 1,000 mls @ 100 mls/hr IV DIRECT COUNT INCLUDES THE [facility] Magnesium Hydroxide (Milk Of Magnesia) 30 ml PO Q4H PRN PRN Reason: Constipation Meclizine HCl (Antivert) 12.5 mg PO QDAY COUNT INCLUDES THE [facility] Methylprednisolone Sodium Succinate (Solu-Medrol) 40 mg IV Q12HR COUNT INCLUDES THE [facility] Last Admin: 05/23/17 12:16 Dose: 40 mg Miscellaneous Medication (Levocetirizine Dihydrochloride) 5 mg PO DAILY COUNT INCLUDES THE [facility] Miscellaneous Medication (Magnesium) 250 mg PO DAILY COUNT INCLUDES THE [facility] Montelukast Sodium (Singulair) 10 mg PO QHS COUNT INCLUDES THE [facility] Ondansetron HCl (Zofran) 4 mg IV Q8H PRN PRN Reason: N/V unrelieved by Reglan Last Admin: 05/22/17 21:01 Dose: 4 mg Pantoprazole Sodium (Protonix) 40 mg PO DAILY COUNT INCLUDES THE [facility] Simvastatin (Zocor) 20 mg PO QHS COUNT INCLUDES THE [facility] Vancomycin HCl (Vancomycin Pharmacy To Dose) 1 each IV PKCONSULT KARUNA PRN Reason: Protocol Review of Systems All systems: negative Physical Examination Vital signs: Vital Signs Temp Pulse Resp BP Pulse Ox 99.6 F 123 H 26 H 135/78 99 05/22/17 15:20 05/22/17 15:20 05/22/17 15:20 05/22/17 15:20 05/22/17 15:20 General appearance: no acute distress, alert Eyes: non-icteric ENT: oropharynx dry Neck: supple Ascultation: Bilateral: diminished breath sounds Percussion: Bilateral: not dull Tactile fremitus: Bilateral: normal Cardiovascular: regular rate and rhythm Gastrointestinal: normoactive bowel sounds, soft, non-tender Extremities: no edema normal mental status, non-focal exam mood appropriate, affect normal Results - Laboratory Findings CBC and BMP: 05/22/17 15:58 05/22/17 15:58 PT/INR, D-dimer PT 14.3 Sec. (12.2-14.9) 05/22/17 15:58 INR 1.06 (0.87-1.13) 05/22/17 15:58 - Diagnostic Findings Chest x-ray: image reviewed (hyperinflated with no evidence of acute lung disease, rads feels that there is a possible left lower lobe infiltrate) Assessment and Plan 77 y/o male with COPD exacerbation and acute respiratory failure. 1. Continue IV steroids, consider switching to oral prednisone 60 as early as tomorrow and taper over a two week time span from there 2. would de-escalate abx unless patient was in the hospital in the last 90 days and has a penicillin allergy. otherwise, don't feel he needs vancomycin. Suggest stopping 3. Agree with pulmicort and kim 4. Smoking cessation 5. PRN nebs Thank you for this consult. Will continue to follow along with you.
[2017-05-23] MEDS: PULMICORT IH SCH (20:00)
[2017-05-23] MEDS: BROVANA NEBU IH SCH (20:00)
[2017-05-23] MEDS: SINGULAIR PO SCH (21:43)
[2017-05-23] MEDS: VANCOMYCIN/NS 1 GM/250 ML 1 GM/250 ML BAG IV SCH (21:44)
[2017-05-23] MEDS: ZOCOR PO SCH (21:44)
[2017-05-23] MEDS ORDERED: NON-FORMULARY (Simvastatin 20 MG) PO SCH (22:00)
[2017-05-23] MEDS ORDERED: PROAIR INHALATION SCH (22:00)
[2017-05-23] MEDS ORDERED: CODEINE PO SCH (22:00)
[2017-05-23] MEDS ORDERED: TYLENOL #3 PO SCH (22:00)
[2017-05-23] MEDS ORDERED: TYLENOL PO SCH (22:00)
[2017-05-24] MEDS: DUONEB *Not for PRN Use IH SCH ×4 (02:17→20:47)
[2017-05-24] MEDS: NACL 0.9% 1000 ML 1,000 ML IV SCH ×3 (02:34→23:58)
[2017-05-24] MEDS: BROVANA NEBU IH SCH ×2 (07:13→20:46)
[2017-05-24] MEDS: PULMICORT IH SCH ×2 (07:13→20:46)
[2017-05-24] MEDS: TYLENOL PO PRN (07:36)
--- NOTE | 2017-05-24 07:46 | Progress Note ---
Assessment and Plan 77 y/o male with COPD exacerbation and acute respiratory failure. 1. Continue IV steroids, consider switching to oral prednisone 60 as early as today and taper over a two week time span from there 2. would de-escalate abx unless patient was in the hospital in the last 90 days and has a penicillin allergy. otherwise, don't feel he needs vancomycin. Suggest stopping 3. Agree with pulboogie and kim 4. Smoking cessation 5. PRN nebs 6. Consider discharge Thank you for this consult. Will continue to follow along with you. Subjective Date of service: 05/24/17 Interval history: No acute events. Weaned off oxygen. Eating breakfast Objective Vital Signs - 12hr 05/23/17 05/23/17 05/23/17 20:00 20:01 21:59 Temperature Pulse Rate Pulse Rate [ 72 Anterior Bilateral Throughout] Respiratory 18 Rate Respiratory 18 Rate [Anterior Bilateral Throughout] Blood Pressure [Left] O2 Sat by Pulse 96 96 Oximetry 05/23/17 05/24/17 05/24/17 22:00 05:00 06:25 Temperature 98.0 F 97.9 F Pulse Rate 69 64 65 Pulse Rate [ Anterior Bilateral Throughout] Respiratory 18 17 Rate Respiratory Rate [Anterior Bilateral Throughout] Blood Pressure 149/81 149/88 [Left] O2 Sat by Pulse 96 97 Oximetry 05/24/17 05/24/17 05/24/17 07:14 07:15 07:22 Temperature Pulse Rate Pulse Rate [ 75 78 Anterior Bilateral Throughout] Respiratory Rate Respiratory 18 18 Rate [Anterior Bilateral Throughout] Blood Pressure [Left] O2 Sat by Pulse 96 Oximetry Constitutional: no acute distress, alert Eyes: non-icteric ENT: oropharynx dry Neck: supple Ascultation: Bilateral: diminished breath sounds Percussion: Bilateral: not dull Tactile fremitus: Bilateral: normal Cardiovascular: regular rate and rhythm Gastrointestinal: normoactive bowel sounds, soft, non-tender Extremities: no edema Neurologic: normal mental status, non-focal exam Psychiatric: mood appropriate, affect normal CBC and BMP: 05/22/17 15:58 05/22/17 15:58 ABG, PT/INR, D-dimer: PT/INR, D-dimer PT 14.3 Sec. (12.2-14.9) 05/22/17 15:58 INR 1.06 (0.87-1.13) 05/22/17 15:58 Abnormal lab findings: Abnormal Labs 05/23/17 21:37 POC Glucose 275 H
[2017-05-24] MEDS: ROCEPHIN/NS 2 GM/100 ML 2 GM/100 ML BAG IV SCH (09:20)
[2017-05-24] MEDS: ANTIVERT PO SCH (09:20)
[2017-05-24] MEDS: VITAMIN C PO SCH (09:21)
[2017-05-24] MEDS: HALFPRIN EC PO SCH (09:21)
[2017-05-24] MEDS: MAG-OX PO SCH (09:21)
[2017-05-24] MEDS: ZITHROMAX 500 MG in NACL 0.9% 250ML 250 ML IV SCH (09:25)
[2017-05-24] MEDS ORDERED: MORPHINE IV PRN (09:39)
[2017-05-24] MEDS ORDERED: MAGNESIUM 250 MG PO SCH (10:00)
[2017-05-24] MEDS ORDERED: VITAMIN C 500 MG PO SCH (10:00)
[2017-05-24] MEDS ORDERED: MECLIZINE 12.5 MG PO SCH (10:00)
[2017-05-24] MEDS: VANCOMYCIN/NS 1 GM/250 ML 1 GM/250 ML BAG IV SCH (10:00)
[2017-05-24] MEDS ORDERED: LEVOCETIRIZINE DIHYDROCHLORIDE 5 MG PO SCH (10:00)
[2017-05-24] MEDS ORDERED: NON-FORMULARY (Aspirin 81 MG) PO SCH (10:00)
[2017-05-24] MEDS ORDERED: NON-FORMULARY (Montelukast 10 MG) PO SCH (10:00)
[2017-05-24] MEDS ORDERED: NON-FORMULARY (Nexium 40 MG) PO SCH (10:00)
--- NOTE | 2017-05-24 10:47 | Progress Note ---
Assessment and Plan Assessment and plan: 77 YO Male with DM, Asthma, Dementia presents to ED for evaluation. Pt states that he as experienced subjective fever, and difficulty breathing for the 2 days , ol. Sepsis 2/2 Aspiration PNA IV abx, IVF, serial lactic acid, supportive care, monitor uop q shift, blood cultures -continue abx, awaiting speech eval Pneumonia continue IV abx, incentive spirometry, blood cultures, supplemental oxygen, nebs , COPD exacerbation Steroids, nebulizer, antibiotics, oxygen supplements pulmonary input appreciated Metabolic acidosis Treat sepsis, repeat bmp. Acute hypoxic Respiratory failure supplemental oxygen, nebs, aspiration precautions, NIPPV as clinically indicated. now resolving, will need home o2 eval prior to dc Elevated LFTs supportive care, hepatitis panel negative Hyponatremia syndrome IVF replacement, monitor uop q shift, Moderate to severe malnutrition clinical manager consult Hypokalemia repleted PO DVT prophylaxis continue lovenox History Interval history: He feels much better today, states that he is now pain-free, shortness of breath is improved, wheezing has improved. Hospitalist Physical - Physical exam Narrative exam: General.: Appears well, no distress, nontoxic HEENT: Moist mucous membranes, extraocular muscles intact, no lymphadenopathy Neck: supple Cardiac: S1-S2 heard Lungs: clear to auscultation bilaterally Abdomen: soft , nontender, nondistended, bowel sounds positive Extremities: no edema clubbing or cyanosis Skin: no rash or lesions Neurologic: no gross focal deficits Psych: appropriate behavior, appropriate mood, corporative, judgment intact - Constitutional Vitals: Temp Pulse Resp BP Pulse Ox 98.5 F 78 20 154/73 97 05/24/17 08:22 05/24/17 07:22 05/24/17 08:22 05/24/17 08:22 05/24/17 08:22 Results - Labs CBC & Chem 7: 05/22/17 15:58 05/22/17 15:58 Labs: Laboratory Last Values WBC 14.0 K/mm3 (4.5-11.0) H 05/22/17 15:58 RBC 4.23 M/mm3 (3.65-5.03) 05/22/17 15:58 Hgb 12.7 gm/dl (11.8-15.2) 05/22/17 15:58 Hct 37.7 % (35.5-45.6) 05/22/17 15:58 MCV 89 fl (84-94) 05/22/17 15:58 MCH 30 pg (28-32) 05/22/17 15:58 MCHC 34 % (32-34) 05/22/17 15:58 RDW 13.9 % (13.2-15.2) 05/22/17 15:58 Plt Count 224 K/mm3 (140-440) 05/22/17 15:58 Add Manual Diff Complete 05/22/17 15:58 Total Counted 100 05/22/17 15:58 Seg Neutrophils % [employer]r 05/22/17 15:58 Seg Neuts % (Manual) 88.0 % (40.0-70.0) H 05/22/17 15:58 Band Neutrophils % 0 % 05/22/17 15:58 Lymphocytes % (Manual) 7.0 % (13.4-35.0) L 05/22/17 15:58 Reactive Lymphs % (Man) 0 % 05/22/17 15:58 Monocytes % (Manual) 4.0 % (0.0-7.3) 05/22/17 15:58 Eosinophils % (Manual) 0 % (0.0-4.3) 05/22/17 15:58 Basophils % (Manual) 0 % (0.0-1.8) 05/22/17 15:58 Metamyelocytes % 1.0 % 05/22/17 15:58 Myelocytes % 0 % 05/22/17 15:58 Promyelocytes % 0 % 05/22/17 15:58 Blast Cells % 0 % 05/22/17 15:58 Nucleated RBC % Not Reportable 05/22/17 15:58 Seg Neutrophils # Man 12.3 K/mm3 (1.8-7.7) H 05/22/17 15:58 Band Neutrophils # 0.0 K/mm3 05/22/17 15:58 Lymphocytes # (Manual) 1.0 K/mm3 (1.2-5.4) L 05/22/17 15:58 Abs React Lymphs (Man) 0.0 K/mm3 05/22/17 15:58 Monocytes # (Manual) 0.6 K/mm3 (0.0-0.8) 05/22/17 15:58 Eosinophils # (Manual) 0.0 K/mm3 (0.0-0.4) 05/22/17 15:58 Basophils # (Manual) 0.0 K/mm3 (0.0-0.1) 05/22/17 15:58 Metamyelocytes # 0.1 K/mm3 05/22/17 15:58 Myelocytes # 0.0 K/mm3 05/22/17 15:58 Promyelocytes # 0.0 K/mm3 05/22/17 15:58 Blast Cells # 0.0 K/mm3 05/22/17 15:58 WBC Morphology Not Reportable 05/22/17 15:58 Hypersegmented Neuts Not Reportable 05/22/17 15:58 Hyposegmented Neuts Not Reportable 05/22/17 15:58 Hypogranular Neuts Not Reportable 05/22/17 15:58 Smudge Cells Not Reportable 05/22/17 15:58 Toxic Granulation Not Reportable 05/22/17 15:58 Toxic Vacuolation Not Reportable 05/22/17 15:58 Dohle Bodies Not Reportable 05/22/17 15:58 Pelger-Huet Anomaly Not Reportable 05/22/17 15:58 Rosa Rods Not Reportable 05/22/17 15:58 Platelet Estimate Consistent w auto 05/22/17 15:58 Clumped Platelets Not Reportable 05/22/17 15:58 Plt Clumps, EDTA Not Reportable 05/22/17 15:58 Large Platelets Not Reportable 05/22/17 15:58 Giant Platelets Not Reportable 05/22/17 15:58 Platelet Satelliting Not Reportable 05/22/17 15:58 Plt Morphology Comment Not Reportable 05/22/17 15:58 RBC Morphology Normal 05/22/17 15:58 Dimorphic RBCs Not Reportable 05/22/17 15:58 Polychromasia Not Reportable 05/22/17 15:58 Hypochromasia Not Reportable 05/22/17 15:58 Poikilocytosis Not Reportable 05/22/17 15:58 Anisocytosis Not Reportable 05/22/17 15:58 Microcytosis Not Reportable 05/22/17 15:58 Macrocytosis Not Reportable 05/22/17 15:58 Spherocytes Not Reportable 05/22/17 15:58 Pappenheimer Bodies Not Reportable 05/22/17 15:58 Sickle Cells Not Reportable 05/22/17 15:58 Target Cells Not Reportable 05/22/17 15:58 Tear Drop Cells Not Reportable 05/22/17 15:58 Ovalocytes Not Reportable 05/22/17 15:58 Helmet Cells Not Reportable 05/22/17 15:58 Richard-Choteau Bodies Not Reportable 05/22/17 15:58 Brayton Rings Not Reportable 05/22/17 15:58 [place] Cells Not Reportable 05/22/17 15:58 Bite Cells Not Reportable 05/22/17 15:58 Crenated Cell Not Reportable 05/22/17 15:58 Elliptocytes Not Reportable 05/22/17 15:58 Acanthocytes (Spur) Not Reportable 05/22/17 15:58 Rouleaux Not Reportable 05/22/17 15:58 Hemoglobin C Crystals Not Reportable 05/22/17 15:58 Schistocytes Not Reportable 05/22/17 15:58 Malaria parasites Not Reportable 05/22/17 15:58 Wilberto Bodies Not Reportable 05/22/17 15:58 Hem Pathologist Commnt No 05/22/17 15:58 PT 14.3 Sec. (12.2-14.9) 05/22/17 15:58 INR 1.06 (0.87-1.13) 05/22/17 15:58 VBG pH 7.405 (7.320-7.420) 05/22/17 15:58 Sodium 136 mmol/L (137-145) L 05/22/17 15:58 Potassium 3.4 mmol/L (3.6-5.0) L 05/22/17 15:58 Chloride 97.1 mmol/L (98-107) L 05/22/17 15:58 Carbon Dioxide 21 mmol/L (22-30) L 05/22/17 15:58 Anion Gap 21 mmol/L 05/22/17 15:58 BUN 17 mg/dL (9-20) 05/22/17 15:58 Creatinine 0.8 mg/dL (0.8-1.5) 05/22/17 15:58 Estimated GFR > 60 ml/min 05/22/17 15:58 BUN/Creatinine Ratio 21.25 % 05/22/17 15:58 Glucose 184 mg/dL (75-100) H 05/22/17 15:58 POC Glucose 197 (70-105) H 05/24/17 07:52 Lactic Acid 1.00 mmol/L (0.7-2.0) 05/23/17 00:48 Calcium 8.4 mg/dL (8.4-10.2) 05/22/17 15:58 Total Bilirubin 1.00 mg/dL (0.1-1.2) 05/22/17 15:58 AST 50 units/L (5-40) H 05/22/17 15:58 ALT 138 units/L (7-56) H 05/22/17 15:58 Alkaline Phosphatase 230 units/L (35-129) H 05/22/17 15:58 Troponin T < 0.010 ng/mL (0.00-0.029) 05/22/17 15:58 NT-Pro-B Natriuret Pep 161.1 pg/mL (0-900) 05/22/17 15:58 Total Protein 6.9 g/dL (6.3-8.2) 05/22/17 15:58 Albumin 3.2 g/dL (3.9-5) L 05/22/17 15:58 Albumin/Globulin Ratio 0.9 % 05/22/17 15:58 Urine Color Yellow (Yellow) 05/22/17 16:43 Urine Turbidity Clear (Clear) 05/22/17 16:43 Urine pH 5.0 (5.0-7.0) 05/22/17 16:43 Ur Specific [place] 1.016 (1.003-1.030) 05/22/17 16:43 Urine Protein 30 mg/dl mg/dL (Negative) 05/22/17 16:43 Urine Glucose (UA) 50 mg/dL (Negative) 05/22/17 16:43 Urine Ketones Tr mg/dL (Negative) 05/22/17 16:43 Urine Blood Mod (Negative) 05/22/17 16:43 Urine Nitrite Neg (Negative) 05/22/17 16:43 Urine Bilirubin Neg (Negative) 05/22/17 16:43 Urine Urobilinogen < 2.0 mg/dL (<2.0) 05/22/17 16:43 Ur Leukocyte Esterase Neg (Negative) 05/22/17 16:43 Urine WBC (Auto) 1.0 /HPF (0.0-6.0) 05/22/17 16:43 Urine RBC (Auto) 1.0 /HPF (0.0-6.0) 05/22/17 16:43 U Epithel Cells (Auto) < 1.0 /HPF (0-13.0) 05/22/17 16:43 Urine Mucus Few /HPF 05/22/17 16:43 Hepatitis A IgM Ab Non-reactive (NonReactive) 05/22/17 21:34 Hep Bs Antigen Non-reactive (Negative) 05/22/17 21:34 Hep B Core IgM Ab Non-reactive (NonReactive) 05/22/17 21:34 Hepatitis C Antibody Non-reactive (NonReactive) 05/22/17 21:34 Blood Type A POSITIVE 05/22/17 21:34 Antibody Screen Negative 05/22/17 21:34
[2017-05-24] MEDS: PROTONIX PO SCH (11:07)
[2017-05-24] MEDS: PERCOCET 5/325 PO PRN ×2 (11:13→21:29)
[2017-05-24] MEDS: NOVOLOG SUB-Q SCH ×2 (15:29→21:28)
[2017-05-24] MEDS: ZOCOR PO SCH (21:29)
[2017-05-24] MEDS: SINGULAIR PO SCH (21:29)
[2017-05-25] MEDS: DUONEB *Not for PRN Use IH SCH ×3 (02:01→13:37)
[2017-05-25] MEDS: PERCOCET 5/325 PO PRN (04:57)
[2017-05-25 05:49] LABS: Anion Gap 21 mmol/L; Blood Urea Nitrogen 12 mg/dL (9-20); Calcium 7.5 mg/dL (8.4-10.2); Carbon Dioxide 19 mmol/L (22-30); Chloride 110.4 mmol/L (98-107); Glucose 159 mg/dL (75-100); Potassium 3.4 mmol/L (3.6-5.0); Sodium 147 mmol/L (137-145)
[2017-05-25] MEDS: PULMICORT IH SCH (07:27)
[2017-05-25] MEDS: BROVANA NEBU IH SCH (07:27)
[2017-05-25] MEDS: NOVOLOG SUB-Q SCH ×2 (07:29→11:24)
[2017-05-25] MEDS: ROCEPHIN/NS 2 GM/100 ML 2 GM/100 ML BAG IV SCH (09:02)
[2017-05-25] MEDS: ANTIVERT PO SCH (09:07)
[2017-05-25] MEDS: PROTONIX PO SCH (09:07)
[2017-05-25] MEDS: MAG-OX PO SCH (09:07)
[2017-05-25] MEDS: HALFPRIN EC PO SCH (09:08)
[2017-05-25] MEDS: VITAMIN C PO SCH (09:09)
[2017-05-25] MEDS: ZITHROMAX 500 MG in NACL 0.9% 250ML 250 ML IV SCH (09:38)
[2017-05-25] MEDS ORDERED: K-DUR PO NR (10:00)
--- NOTE | 2017-05-25 13:16 | Progress Note ---
Assessment and Plan Imp: 1. Centrilobular emphysema 2. COPD exac. 3. Acute respiratory failure, hypoxia 4. Acute bronchitis 5. Chronic nicotine dependence, cigs Rec: 1. Finish ~ 7 days of ABX 2. Prednisone taper at d/c 3. Stop smoking, patient counseled 4. ST eval. negative 5. Off O2 6. Can go home pulm-delgaod, and f/u with us 1-2 weeks Plan of care reviewed w/ patient, he understands/agrees Subjective Date of service: 05/25/17 Principal diagnosis: COPD exac. Interval history: No events. SOB back to baseline. Denies wheezing, cough. No new complaints. On RA. Active Medications Acetaminophen (Tylenol) 650 mg PO Q4H PRN PRN Reason: Pain MILD(1-3)/Fever >100.5/PICKETT Last Admin: 05/24/17 07:36 Dose: 650 mg Albuterol (Proventil) 2.5 mg IH Q4HRT PRN PRN Reason: Shortness Of Breath Last Admin: 05/23/17 09:16 Dose: 2.5 mg Albuterol/Ipratropium (Duoneb *Not For Prn Use*) 1 ampul IH Q6HRT [facility] Last Admin: 05/25/17 07:27 Dose: Not Given Arformoterol Tartrate (Brovana Nebu) 15 mcg IH Q12HRT [facility] Last Admin: 05/25/17 07:27 Dose: 15 mcg Ascorbic Acid (Vitamin C) 500 mg PO QDAY [facility] Last Admin: 05/25/17 09:09 Dose: 500 mg Aspirin (Halfprin Ec) 81 mg PO QDAY [facility] Last Admin: 05/25/17 09:08 Dose: 81 mg Azithromycin (Zithromax) 500 mg PO QDAY [facility] Bisacodyl (Dulcolax) 10 mg NC QDAY PRN PRN Reason: Constipation unrelieved by MOM Budesonide (Pulmicort) 0.5 mg IH Q12HRT [facility] Last Admin: 05/25/17 07:27 Dose: 0.5 mg Ceftriaxone Sodium (Rocephin/Ns 2 Gm/100 Ml) 2 gm in 100 mls @ 200 mls/hr IV Q24HR KARUNA PRN Reason: Protocol Last Admin: 05/25/17 09:02 Dose: 200 mls/hr Insulin Aspart (Novolog) 0 units SUB-Q ACHS [facility] PRN Reason: Protocol Last Admin: 05/25/17 11:24 Dose: 2 units Loratadine (Claritin) 10 mg PO DAILY [facility] Magnesium Hydroxide (Milk Of Magnesia) 30 ml PO Q4H PRN PRN Reason: Constipation Magnesium Oxide (Mag-Ox) 400 mg PO QDAY [facility] Last Admin: 05/25/17 09:07 Dose: 400 mg Meclizine HCl (Antivert) 12.5 mg PO QDAY [facility] Last Admin: 05/25/17 09:07 Dose: 12.5 mg Methylprednisolone Sodium Succinate (Solu-Medrol) 40 mg IV Q12HR [facility] Last Admin: 05/25/17 09:08 Dose: 40 mg Montelukast Sodium (Singulair) 10 mg PO QHS [facility] Last Admin: 05/24/17 21:29 Dose: 10 mg Morphine Sulfate (Morphine) 2 mg IV Q4H PRN PRN Reason: Pain, Moderate (4-6) Ondansetron HCl (Zofran) 4 mg IV Q8H PRN PRN Reason: N/V unrelieved by Nelly Last Admin: 05/22/17 21:01 Dose: 4 mg Oxycodone/Acetaminophen (Percocet 5/325) 1 tab PO Q4H PRN PRN Reason: Pain, Moderate (4-6) Last Admin: 05/25/17 04:57 Dose: 1 tab Pantoprazole Sodium (Protonix) 40 mg PO DAILY [facility] Last Admin: 05/25/17 09:07 Dose: 40 mg Simvastatin (Zocor) 20 mg PO QHS [facility] Last Admin: 05/24/17 21:29 Dose: 20 mg Objective Vital Signs - 12hr 05/25/17 05/25/17 05/25/17 04:32 04:58 07:20 Temperature 97.6 F 97.6 F Pulse Rate 58 L 69 69 Pulse Rate [ Anterior Bilateral Throughout] Respiratory 20 16 Rate Respiratory Rate [Anterior Bilateral Throughout] Blood Pressure 165/87 169/89 [Left] O2 Sat by Pulse 97 99 Oximetry 05/25/17 05/25/17 05/25/17 07:28 07:44 09:44 Temperature Pulse Rate 86 Pulse Rate [ 84 83 Anterior Bilateral Throughout] Respiratory Rate Respiratory 18 18 Rate [Anterior Bilateral Throughout] Blood Pressure [Left] O2 Sat by Pulse 95 Oximetry 05/25/17 09:45 Temperature Pulse Rate Pulse Rate [ Anterior Bilateral Throughout] Respiratory 16 Rate Respiratory Rate [Anterior Bilateral Throughout] Blood Pressure [Left] O2 Sat by Pulse 99 Oximetry Constitutional: no acute distress, alert Eyes: non-icteric ENT: oropharynx moist Neck: supple Effort: normal Ascultation: Bilateral: diminished breath sounds Cardiovascular: regular rate and rhythm (no mrg) Gastrointestinal: normoactive bowel sounds, soft, non-tender, non-distended Integumentary: normal Extremities: no cyanosis, no edema, pink and warm, pulses normal, no ischemia or petechiae Neurologic: normal mental status, non-focal exam, pupils equal and round, CN II- XII normal Psychiatric: mood appropriate, affect normal CBC and BMP: 05/22/17 15:58 05/25/17 04:52 ABG, PT/INR, D-dimer: PT/INR, D-dimer PT 14.3 Sec. (12.2-14.9) 05/22/17 15:58 INR 1.06 (0.87-1.13) 05/22/17 15:58 Abnormal lab findings: Abnormal Labs 05/23/17 05/24/17 05/24/17 21:37 07:52 11:39 Sodium Potassium Chloride Carbon Dioxide Creatinine Glucose POC Glucose 275 H 197 H 305 H Hemoglobin A1c Calcium 05/24/17 05/24/17 05/25/17 15:21 21:18 04:52 Sodium 147 H D Potassium 3.4 L Chloride 110.4 H Carbon Dioxide 19 L Creatinine 0.5 L Glucose 159 H POC Glucose 327 H 329 H Hemoglobin A1c Calcium 7.5 L 05/25/17 05/25/17 05/25/17 04:52 07:30 11:26 Sodium Potassium Chloride Carbon Dioxide Creatinine Glucose POC Glucose 180 H 233 H Hemoglobin A1c 6.7 H Calcium Chest x-ray: report reviewed, image reviewed
--- NOTE | 2017-05-25 13:16 | Discharge Summary ---
Providers - Providers Date of Admission: 05/22/17 18:38 Attending physician: JULIET ARGUETA MD 05/23/17 11:44 Consult to Dietitian/Nutrition [CONS] Routine Physician Instructions: Reason For Exam: Reason for Consult: Malnutrition Speech Therapy Evaluation and Treat [CONS] Routine Reason For Exam: concern for aspiration 05/23/17 11:47 Consult to Physician [CONS] Routine Consulting Provider: JANIYA STEWART Reason For Exam: copd Place consult to:: ANSWERING SERVICE Notified:: YES Phone number called:: [phone] If yes, spoke with:: ELVIRA Time called:: 12:05 Comment:: ENOCH Primary care physician: TIARRA CARTER Hospitalization Condition: Stable Hospital course: 77 YO Male with DM, Asthma, Dementia presents to ED for evaluation. Pt states that he as experienced subjective fever, and difficulty breathing x 2 days, he was treated with antibiotics for pneumonia. He was also treated her with steroids and nebulizer antibiotics and oxygen supplement for COPD exacerbation. Patient clinically improved and was weaned off oxygen. He received IV fluids , and this was repleted, was counseled on improved balanced diet. He was found to have dysphagia, therefore he was seen by speech pathology who recommended outpatient modified barium swallow, therefore he was given outpatient speech therapy referral for this procedure. In the meantime he is to continue regular diet with thin liquids Diagnoses Sepsis Aspiration Pneumonia COPD exacerbation Metabolic acidosis Acute hypoxic Respiratory failure Elevated LFTs Hyponatremia syndrome Moderate to severe malnutrition Hypokalemia Disposition: DC-01 TO HOME OR SELFCARE Time spent for discharge: 33 minutes Core Measure Documentation - Palliative Care Palliative Care/ Comfort Measures: Not Applicable - Core Measures Any of the following diagnoses?: none Exam - Constitutional Vitals: Temp Pulse Resp BP Pulse Ox 97.6 F 86 16 169/89 99 05/25/17 07:20 05/25/17 09:44 05/25/17 09:45 05/25/17 07:20 05/25/17 09:45 General appearance: Present: no acute distress, well-nourished - EENT Eyes: Present: PERRL ENT: hearing intact, clear oral mucosa - Neck Neck: Present: supple, normal ROM - Respiratory Respiratory effort: normal Respiratory: bilateral: CTA - Cardiovascular Heart Sounds: Present: S1 & S2. Absent: rub, click - Extremities Extremities: pulses symmetrical, No edema Peripheral Pulses: within normal limits - Abdominal General gastrointestinal: Present: soft, non-tender, non-distended, normal bowel sounds Male genitourinary: Present: normal - Integumentary Integumentary: Present: clear, warm, dry - Musculoskeletal Musculoskeletal: gait normal, strength equal bilaterally - Psychiatric Psychiatric: appropriate mood/affect, intact judgment & insight - Neurologic Neurologic: CNII-XII intact, moves all extremities Plan Follow up with: TIARRA CARTER MD [Primary Care Provider] - 7 Days Prescriptions: Aspirin 81 mg PO DAILY #30 Donepezil 5 mg PO DAILY #30 Fluticasone/Salmeterol [Advair Diskus 250-50 mcg] 1 puff IH BID #1 disk.w.dev Ipratropium/Albuterol Sulfate [Combivent Respimat] 1 spray IH QID #1 aer.w.adap Levocetirizine Dihydrochloride 5 mg PO DAILY #30 Magnesium 250 mg PO DAILY #30 Meclizine 12.5 mg PO DAILY #30 Montelukast 10 mg PO DAILY #30 NexIUM 40 mg PO DAILY #30 oxyCODONE /ACETAMINOPHEN [Percocet 5/325 mg] 1 tab PO Q4H PRN #30 tablet PRN Reason: Pain, Moderate (4-6) Prednisone [predniSONE 5 mg (6-Day Pack, 21 Tabs)] 5 mg PO .TAPER #1 tab.ds.pk Simvastatin 20 mg PO HS #30 Vitamin C 500 mg PO DAILY #30 Other Discharge Orders: Speech Therapy (Amb) Location: Determined By Patient
[2017-05-25 13:19] VITALS: BP 175/95
[2017-05-25] MEDS ORDERED: CLARITIN PO SCH (14:00)
[2017-05-26] MEDS ORDERED: ZITHROMAX PO SCH (10:00)
== END 2017-05-25 15:07 | disposition home or self-care (01) | DRG 871 ==
LOC: ED 14:40 → CC2 18:38
PROVIDERS: ADMIT Internal Medicine; ATTEND Internal Medicine
DX: A41.9 Sepsis, unspecified organism (principal); J69.0 Pneumonitis due to inhalation of food and vomit; J96.01 Acute respiratory failure with hypoxia; E43 Unspecified severe protein-calorie malnutrition; E87.1 Hypo-osmolality and hyponatremia; J44.1 Chronic obstructive pulmonary disease with (acute) exacerbation; E11.9 Type 2 diabetes mellitus without complications; F03.90 Unspecified dementia, unspecified severity, without behavioral disturbance, psychotic disturbance, mood disturbance, and anxiety; E87.6 Hypokalemia; F17.210 Nicotine dependence, cigarettes, uncomplicated; Z71.6 Tobacco abuse counseling; J20.9 Acute bronchitis, unspecified; Z68.23 Body mass index [BMI] 23.0-23.9, adult; Z79.82 Long term (current) use of aspirin; Z79.51 Long term (current) use of inhaled steroids
CPT/HCPCS: 36415; 71010; 80048; 80053; 80074; 81001; 82140; 82805; 82962; 83036; 83880; 84484; 85007; 85025; 85610; 86850; 86900; 86901; 87040; 87086; 93005; 93010; 94640; 94760; 96365; 96366; 96367; 96375; G8996-GN; G8997-GN; J0456; J0696; J1815; J2405; J2920; J3370; J7030; J7040; J7050

== ENCOUNTER 2021-02-23 11:18 | Emergency (ER) | payer MEDICARE ==
--- NOTE | 2021-02-23 13:17 | Emergency Department Report ---
HPI - General Chief Complaint: Dizziness Time Seen by Provider: 02/23/21 12:45 - HPI HPI: This is an 80-year-old [place] male who presents to the emergency department with complaint of some increased fatigue, dizziness/lightheadedness. The patient says that he has not had any recent falls but the dizziness/lightheadedness makes him feel like he will fall down and/or pass out. He admits to a mild generalized headache, but denies any vision change, slurred speech, numbness or paresthesias, focal weakness, chest pain. He has a past medical history of diabetes and BPH. He is a tobacco smoker and says that he smokes about 1 to 2 cigarettes/day. No recent travel or sick contacts at home. ED Past Medical Hx - Past Medical History Hx Hypertension: Yes Hx Congestive Heart Failure: Yes (Systolic CHF) Hx Diabetes: Yes Hx Asthma: Yes Hx COPD: Yes Hx Dementia: Yes Hx HIV: No - Surgical History Hx Open Heart Surgery: No Hx Cholecystectomy: No Hx Appendectomy: No Hx Breast Surgery: No - Social History Smoking Status: Current Some Day Smoker - Medications Home Medications: Home Medications Medication Instructions Recorded Confirmed Last Taken Type Meclizine [Antivert] 12.5 mg PO DAILY PRN 12/08/18 12/08/18 Unknown History Simvastatin [Zocor] 20 mg PO DAILY 12/08/18 12/08/18 Unknown History donepeziL [Aricept] 5 mg PO HS 12/08/18 12/08/18 Unknown History metFORMIN [Glucophage] 500 mg PO BID 12/08/18 12/08/18 Unknown History ALBUTEROL Inhaler(NF) [VENTOLIN 1 puff IH QID 30 Days inha 12/11/18 Unknown Rx Inhaler(NF)] Azithromycin [Zithromax TAB] 500 mg PO QDAY #2 tablet 12/11/18 Unknown Rx Budesonide/Formoterol Fumarate 10.2 gm IH BID 30 Days hfa.aer.ad 12/11/18 Unknown Rx [Symbicort 160-4.5 Mcg Inhaler] Ondansetron [Zofran ODT TAB] 4 mg PO Q8HR PRN tab.rapdis 12/11/18 Unknown Rx oxyCODONE /ACETAMINOPHEN [Percocet 1 tab PO TID PRN tablet 12/11/18 Unknown Rx 5/325 mg] ED Review of Systems ROS: Stated complaint: DIZZINESS Other details as noted in HPI Comment: All other systems reviewed and negative Constitutional: denies: chills, fever Eyes: denies: eye pain, vision change ENT: denies: ear pain Respiratory: shortness of breath (Intermittent). denies: cough Cardiovascular: denies: chest pain, palpitations Gastrointestinal: denies: abdominal pain, vomiting Genitourinary: denies: dysuria, discharge Musculoskeletal: denies: back pain, arthralgia Skin: denies: rash, lesions Neurological: headache, other (Dizziness/lightheadedness). denies: weakness, numbness Physical Exam - Physical Exam Vital Signs: Vital Signs 02/23/21 02/23/21 02/23/21 12:07 12:22 12:31 Temperature 97.9 F Pulse Rate 67 Respiratory 20 Rate Blood Pressure 140/74 142/77 O2 Sat by Pulse 96 Oximetry Physical Exam: GENERAL: The patient is well-developed well-nourished. HENT: Normocephalic. Atraumatic. Patient has moist mucous membranes. EYES: Extraocular motions are intact. Pupils equal reactive to light bilaterally. No nystagmus. NECK: Supple. Trachea is midline. CHEST/LUNGS: Clear to auscultation. There is no respiratory distress noted. HEART/CARDIOVASCULAR: Regular. There is no tachycardia. There is no murmur. ABDOMEN: Abdomen is soft, nontender. Patient has normal bowel sounds. There is no abdominal distention. SKIN: Skin is warm and dry. NEURO: The patient is awake, alert, and cooperative. The patient has no focal neurologic deficits. Normal speech. Cranial nerves II through XII grossly intact. No facial asymmetry. No pronator drift. MUSCULOSKELETAL: There is no tenderness or deformity. There is no limitation range of motion. ED Course Vital Signs 02/23/21 02/23/21 02/23/21 12:07 12:22 12:31 Temperature 97.9 F Pulse Rate 67 Respiratory 20 Rate Blood Pressure 140/74 142/77 O2 Sat by Pulse 96 Oximetry ED Medical Decision Making - Lab Data Result diagrams: 02/23/21 12:55 02/23/21 12:55 Lab Results 02/23/21 02/23/21 02/23/21 Range/Units 12:55 12:55 12:55 WBC 7.9 (4.5-11.0) K/mm3 RBC 4.94 (3.65-5.03) M/mm3 Hgb 14.2 (11.8-15.2) gm/dl Hct 43.6 (35.5-45.6) % MCV 88 (84-94) fl MCH 29 (28-32) pg MCHC 33 (32-34) % RDW 13.6 (13.2-15.2) % Plt Count 235 (140-440) K/mm3 Lymph % (Auto) 15.3 (13.4-35.0) % [place] % (Auto) 5.6 (0.0-7.3) % Eos % (Auto) 4.0 (0.0-4.3) % Baso % (Auto) 0.6 (0.0-1.8) % Lymph # (Auto) 1.2 (1.2-5.4) K/mm3 [place] # (Auto) 0.4 (0.0-0.8) K/mm3 Eos # (Auto) 0.3 (0.0-0.4) K/mm3 Baso # (Auto) 0.0 (0.0-0.1) K/mm3 Seg Neutrophils % 74.5 H (40.0-70.0) % Seg Neutrophils # 5.9 (1.8-7.7) K/mm3 PT (12.2-14.9) Sec. INR (0.87-1.13) Sodium 136 L (137-145) mmol/L Potassium 4.1 (3.6-5.0) mmol/L Chloride 98.6 (98-107) mmol/L Carbon Dioxide 30 (22-30) mmol/L Anion Gap 12 mmol/L BUN 20 (9-20) mg/dL Creatinine 0.8 (0.8-1.3) mg/dL Estimated GFR > 60 ml/min BUN/Creatinine Ratio 25 % Glucose 108 H (75-100) mg/dL Calcium 9.6 (8.4-10.2) mg/dL Total Bilirubin 0.40 (0.1-1.2) mg/dL AST 14 (5-40) units/L ALT 11 (7-56) units/L Alkaline Phosphatase 81 (35-129) units/L Troponin T < 0.010 (0.00-0.029) ng/mL NT-Pro-B Natriuret Pep 40.25 (0-900) pg/mL Total Protein 6.8 (6.3-8.2) g/dL Albumin 4.2 (3.9-5) g/dL Albumin/Globulin Ratio 1.6 % TSH 0.767 (0.270-4.200) mlU/mL Urine Color (Yellow) Urine Turbidity (Clear) Urine pH (5.0-7.0) Ur Specific Fowler (1.003-1.030) Urine Protein (Negative) mg/dL Urine Glucose (UA) (Negative) mg/dL Urine Ketones (Negative) mg/dL Urine Blood (Negative) Urine Nitrite (Negative) Urine Bilirubin (Negative) Urine Urobilinogen (<2.0) mg/dL Ur Leukocyte Esterase (Negative) Urine WBC (Auto) (0.0-6.0) /HPF Urine RBC (Auto) (0.0-6.0) /HPF 02/23/21 02/23/21 Range/Units 12:55 13:11 WBC (4.5-11.0) K/mm3 RBC (3.65-5.03) M/mm3 Hgb (11.8-15.2) gm/dl Hct (35.5-45.6) % MCV (84-94) fl MCH (28-32) pg MCHC (32-34) % RDW (13.2-15.2) % Plt Count (140-440) K/mm3 Lymph % (Auto) (13.4-35.0) % [place] % (Auto) (0.0-7.3) % Eos % (Auto) (0.0-4.3) % Baso % (Auto) (0.0-1.8) % Lymph # (Auto) (1.2-5.4) K/mm3 [place] # (Auto) (0.0-0.8) K/mm3 Eos # (Auto) (0.0-0.4) K/mm3 Baso # (Auto) (0.0-0.1) K/mm3 Seg Neutrophils % (40.0-70.0) % Seg Neutrophils # (1.8-7.7) K/mm3 PT 13.3 (12.2-14.9) Sec. INR 0.96 (0.87-1.13) Sodium (137-145) mmol/L Potassium (3.6-5.0) mmol/L Chloride (98-107) mmol/L Carbon Dioxide (22-30) mmol/L Anion Gap mmol/L BUN (9-20) mg/dL Creatinine (0.8-1.3) mg/dL Estimated GFR ml/min BUN/Creatinine Ratio % Glucose (75-100) mg/dL Calcium (8.4-10.2) mg/dL Total Bilirubin (0.1-1.2) mg/dL AST (5-40) units/L ALT (7-56) units/L Alkaline Phosphatase (35-129) units/L Troponin T (0.00-0.029) ng/mL NT-Pro-B Natriuret Pep (0-900) pg/mL Total Protein (6.3-8.2) g/dL Albumin (3.9-5) g/dL Albumin/Globulin Ratio % TSH (0.270-4.200) mlU/mL Urine Color Yellow (Yellow) Urine Turbidity Clear (Clear) Urine pH 8.0 H (5.0-7.0) Ur Specific Fowler 1.020 (1.003-1.030) Urine Protein <15 mg/dl (Negative) mg/dL Urine Glucose (UA) >=500 (Negative) mg/dL Urine Ketones Neg (Negative) mg/dL Urine Blood Neg (Negative) Urine Nitrite Neg (Negative) Urine Bilirubin Neg (Negative) Urine Urobilinogen 2.0 (<2.0) mg/dL Ur Leukocyte Esterase Neg (Negative) Urine WBC (Auto) < 1.0 (0.0-6.0) /HPF Urine RBC (Auto) 2.0 (0.0-6.0) /HPF - EKG Data -: EKG Interpreted by Tx EKG shows normal: sinus rhythm (PVCs), axis, intervals, QRS complexes, ST-T waves (Nonspecific ST T waves) Rate: normal - EKG Data When compared to previous EKG there are: no significant change Interpretation: unchanged when compared t (12/08/18 except for current PVCs) - Radiology Data Radiology results: report reviewed CT HEAD WITHOUT CONTRAST INDICATION / CLINICAL INFORMATION: Dizziness. T ECHNIQUE: All CT scans at this location are performed using CT dose reduction for ALARA by means of automated exposure control. COMPARISON: None available. FINDINGS: HEMORRHAGE: None. EXTRA-AXIAL SPACES: Normal in size and morphology for the patient's age. VENTRICULAR SYSTEM: Normal in size and morphology for the patient's age. CEREBRAL PARENCHYMA: Scattered white matter hypodensities likely representing microangiopathy. MIDLINE SHIFT / HERNIATION: None. CEREBELLUM / BRAINSTEM: No significant abnormality. ORBITS: Normal as visualized. SOFT TISSUES: No significant abnormality. SKULL: No significant abnormality. PARANASAL SINUSES / MASTOID AIR CELLS: Normal as visualized. ADDITIONAL FINDINGS: None. IMPRESSION: 1. No acute intracranial abnormality. 2. Chronic/age-related findings. - Medical Decision Making This patient presented to the emergency department with a complaint of some nonspecific dizziness/lightheadedness and increased fatigue. On examination the patient does not have any focal, motor or sensory deficits and his cranial nerves are intact. Heart and lung sounds are normal to auscultation. The patient does not appear in any respiratory or acute distress. CT scan of the head without contrast did not show any hemorrhage, large vessel occlusion, hydrocephalus, or any other acute process. EKG did not have any morphology consistent with ST elevation myocardial infarction or any dysrhythmia. Patient's labs have been mostly unremarkable including CBC, metabolic panel, normal thyroid function, urinalysis, negative troponin. The patient was positive on orthostatics from sitting to standing with a systolic blood pressure drop of about 20. He was not hypotensive but it was still positive. He was given a 500 cc bolus of IV fluid. The patient was reevaluated multiple times over multiple hours and says he is feeling improved. He was able to ambulate around the emergency department without any increased dizziness or lightheadedness, and both appears and feels stable. Vital signs reassuring throughout his ED course including being afebrile. For all these reasons patient appears safe for discharge home at this time. He has been instructed to follow-up with his primary care physician, but to return to the emergency department with any worsening of his symptoms or with any acute distress. Critical Care Time: No Critical care attestation.: If time is entered above; I have spent that time in minutes in the direct care of this critically ill patient, excluding procedure time. ED Disposition Clinical Impression: Dizziness, Lightheaded, Orthostatic lightheadedness Disposition: DC-01 TO HOME OR SELFCARE Is pt being admited?: No Condition: Stable Instructions: Orthostatic Hypotension, Dizziness Additional Instructions: Please follow-up with your primary care physician in the next few days. Return to the closest emergency department with any worsening of your symptoms, development of chest pain or shortness of breath, development of any strokelike symptoms, new or concerning symptoms not addressed during this emergency department visit, or with any acute distress. Referrals: PRIMARY CARE, [Primary Care Provider] - 2-3 Days Time of Disposition: 15:49
[2021-02-23 13:23] LABS: Hematocrit 43.6 % (35.5-45.6); Hemoglobin 14.2 gm/dl (11.8-15.2); Mean Corpuscular HGB Conc 33 % (32-34); Mean Corpuscular Volume 88 fl (84-94); Platelet Count 235 K/mm3 (140-440); Red Blood Count 4.94 M/mm3 (3.65-5.03); Red Cell Distribution Width 13.6 % (13.2-15.2)
[2021-02-23 13:27] LABS: Basophils % (Auto) 0.6 % (0.0-1.8); Eosinophils # (Auto) 0.3 K/mm3 (0.0-0.4); Lymphocytes # (Auto) 1.2 K/mm3 (1.2-5.4); Lymphocytes % (Auto) 15.3 % (13.4-35.0); Monocytes # (Auto) 0.4 K/mm3 (0.0-0.8); Monocytes % (Auto) 5.6 % (0.0-7.3)
[2021-02-23 13:32] LABS: INR 0.96 (0.87-1.13)
[2021-02-23 13:36] LABS: Bilirubin,Urine NEG (Negative); Blood,Urine NEG (Negative); Color,Urine Yellow (Yellow); Protein,Urine <15 mg/dL mg/dL (Negative); WBC,Urine < 1.0 /HPF (0.0-6.0)
[2021-02-23 13:39] LABS: Alanine Aminotransferase 11 units/L (7-56); Albumin 4.2 g/dL (3.9-5); BUN/Creatinine Ratio 25; Blood Urea Nitrogen 20 mg/dL (9-20); Calcium 9.6 mg/dL (8.4-10.2); Hemolysis Index 3
[2021-02-23] MEDS ORDERED: SODIUM CHLORIDE 0.9% 500 ML 500 ML IV ONE (14:02)
[2021-02-23 16:10] VITALS: BP 128/70
--- NOTE | 2021-02-28 10:53 | Electrocardiograph Report ---
[facility] Test Date: 2021-02-23 Test Time: 12:26:55 Pat Name: SANTOS RAYMOND Department: Room: Gender: M [employer]: NURSE : 1940 Requested By: CARMEN THOMPSON Order Number: [id number] Reading MD: Koffi Jose Measurements Intervals Baker Rate: 70 P: 94 MT: 187 QRS: 86 QRSD: 93 T: 72 QT: 387 QTc: 417 Interpretive Statements Sinus rhythm Aberrant conduction of SV complex(es)Baseline artifacts noted.No previous ECG available for comparison Electronically Signed On 02-28-2021 10:52:40 EDT by Koffi Jose
== END 2021-02-23 16:10 | disposition home or self-care (01) ==
LOC: ED 11:18
DX: R42 Dizziness and giddiness (principal); R53.83 Other fatigue; R06.89 Other abnormalities of breathing; I11.0 Hypertensive heart disease with heart failure; I50.9 Heart failure, unspecified; E11.9 Type 2 diabetes mellitus without complications; J44.9 Chronic obstructive pulmonary disease, unspecified; F17.200 Nicotine dependence, unspecified, uncomplicated; Z91.011 Allergy to milk products; Z79.899 Other long term (current) drug therapy
CPT/HCPCS: 36415; 70450; 80053; 81001; 83880; 84443; 84484; 85025; 85610; 93005; 99284; J7040

== ENCOUNTER 2021-11-22 09:23 | Inpatient (IN) | payer MEDICAID, MEDICARE ==
--- NOTE | 2021-11-22 09:45 | Emergency Department Report ---
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 The chest pain does not radiate to the back, arms or neck. He denies vomiting and diaphoresis. He has chronic shortness of breath. Denies leg pain or leg swelling. Believes that he was admitted to [facility] last month for 19 days. He is uncertain why. His chest pain is improved with aspirin and nitroglycerin, administered by EMS. He denies hematemesis and bright red blood per rectum. -: Sudden Location: chest Severity scale (0 -10): 6 Consistency: constant Improves with: medication Worsens with: none Associated Symptoms: denies other symptoms - Related Data Home Medications Medication Instructions Recorded Confirmed Last Taken Meclizine [Antivert] 12.5 mg PO DAILY PRN 12/08/18 12/08/18 Unknown Simvastatin [Zocor] 20 mg PO DAILY 12/08/18 11/22/21 Unknown donepeziL [Aricept] 5 mg PO HS 12/08/18 11/22/21 Unknown metFORMIN [Glucophage] 500 mg PO BID 12/08/18 11/22/21 Unknown Empagliflozin [Jardiance] 25 mg PO DAILY 11/22/21 11/22/21 Unknown Meloxicam [Mobic] 7.5 mg PO QDAY 11/22/21 11/22/21 Unknown Montelukast [Singulair] 10 mg PO QPM 11/22/21 11/22/21 Unknown Pantoprazole Sodium 40 mg PO DAILY 11/22/21 11/22/21 Unknown Tamsulosin [Flomax] 0.4 mg PO QDAY 11/22/21 11/22/21 Unknown Previous Rx's Medication Instructions Recorded Last Taken Type ALBUTEROL Inhaler(NF) [VENTOLIN 1 puff IH QID 30 Days inha 12/11/18 Unknown Rx Inhaler(NF)] Azithromycin [Zithromax TAB] 500 mg PO QDAY #2 tablet 12/11/18 Unknown Rx Budesonide/Formoterol Fumarate 10.2 gm IH BID 30 Days hfa.aer.ad 12/11/18 Unknown Rx [Symbicort 160-4.5 Mcg Inhaler] Ondansetron [Zofran ODT TAB] 4 mg PO Q8HR PRN tab.rapdis 12/11/18 Unknown Rx oxyCODONE /ACETAMINOPHEN [Percocet 1 tab PO TID PRN tablet 12/11/18 Unknown Rx 5/325 mg] Allergies Allergy/AdvReac Type Severity Reaction Status Date / Time Beef Containing Products Allergy Anaphylaxis Verified 11/22/21 09:43 nut - unspecified Allergy Anaphylaxis Verified 11/22/21 09:43 Pork/Porcine Containing Allergy Anaphylaxis Verified 11/22/21 09:43 Products ED Review of Systems ROS: Stated complaint: CHEST PAIN Other details as noted in HPI Constitutional: denies: fever Eyes: denies: eye discharge Respiratory: shortness of breath Cardiovascular: chest pain Gastrointestinal: denies: abdominal pain, vomiting, hematemesis, melena, hematochezia Neurological: weakness Hematological/Lymphatic: denies: easy bleeding ED Past Medical Hx - Past Medical History Previous Medical History?: Yes Hx Hypertension: Yes Hx Congestive Heart Failure: Yes (Systolic CHF) Hx Diabetes: Yes Hx Asthma: Yes Hx COPD: Yes Hx Dementia: Yes Hx HIV: No - Surgical History Hx Open Heart Surgery: No Hx Cholecystectomy: No Hx Appendectomy: No Hx Breast Surgery: No - Social History Smoking Status: Current Some Day Smoker - Medications Home Medications: Home Medications Medication Instructions Recorded Confirmed Last Taken Type Meclizine [Antivert] 12.5 mg PO DAILY PRN 12/08/18 12/08/18 Unknown History Simvastatin [Zocor] 20 mg PO DAILY 12/08/18 11/22/21 Unknown History donepeziL [Aricept] 5 mg PO HS 12/08/18 11/22/21 Unknown History metFORMIN [Glucophage] 500 mg PO BID 12/08/18 11/22/21 Unknown History ALBUTEROL Inhaler(NF) [VENTOLIN 1 puff IH QID 30 Days inha 12/11/18 11/22/21 Unknown Rx Inhaler(NF)] Azithromycin [Zithromax TAB] 500 mg PO QDAY #2 tablet 12/11/18 Unknown Rx Budesonide/Formoterol Fumarate 10.2 gm IH BID 30 Days hfa.aer.ad 12/11/18 Unknown Rx [Symbicort 160-4.5 Mcg Inhaler] Ondansetron [Zofran ODT TAB] 4 mg PO Q8HR PRN tab.rapdis 12/11/18 Unknown Rx oxyCODONE /ACETAMINOPHEN [Percocet 1 tab PO TID PRN tablet 12/11/18 Unknown Rx 5/325 mg] Empagliflozin [Jardiance] 25 mg PO DAILY 11/22/21 11/22/21 Unknown History Meloxicam [Mobic] 7.5 mg PO QDAY 11/22/21 11/22/21 Unknown History Montelukast [Singulair] 10 mg PO QPM 11/22/21 11/22/21 Unknown History Pantoprazole Sodium 40 mg PO DAILY 11/22/21 11/22/21 Unknown History Tamsulosin [Flomax] 0.4 mg PO QDAY 11/22/21 11/22/21 Unknown History ED Physical Exam - General Limitations: Language Barrier General appearance: alert, in no apparent distress - Head Head exam: Present: normocephalic - Eye Eye exam: Present: normal appearance, EOMI. Absent: nystagmus - ENT ENT exam: Present: normal exam, normal orophraynx, mucous membranes moist, normal external ear exam - Neck Neck exam: Present: normal inspection, full ROM. Absent: tenderness, meningismus - Respiratory Respiratory exam: Present: normal lung sounds bilaterally, decreased breath sounds. Absent: respiratory distress, wheezes, rales, rhonchi, stridor - Cardiovascular Cardiovascular Exam: Present: regular rate, normal rhythm, normal heart sounds. Absent: bradycardia, tachycardia, irregular rhythm, systolic murmur, diastolic murmur, rubs, gallop - GI/Abdominal GI/Abdominal exam: Present: soft. Absent: distended, tenderness, guarding, rebound, rigid, pulsatile mass - Rectal Rectal exam: Present: deferred - Extremities Exam Extremities exam: Present: normal inspection, full ROM, other (2+ pulses noted in the bilateral upper and lower extremities. There is no palpable cord. negative Homans sign. Muscular compartments are soft. The pelvis is stable.). Absent: pedal edema, calf tenderness - Back Exam Back exam: Present: normal inspection. Absent: tenderness, CVA tenderness (R), CVA tenderness (L), paraspinal tenderness, vertebral tenderness - Neurological Exam Neurological exam: Present: alert, other (No facial droop. Tongue midline. Extraocular movements intact bilaterally. Facial sensation intact to light touch in V1, V2, V3 distribution bilaterally. 5 and a 5 strength in 4 extremities. Sensation intact to light touch in 4 extremities.) - Psychiatric Psychiatric exam: Present: anxious - Skin Skin exam: Present: warm, dry, intact, normal color. Absent: rash ED Course Vital Signs 11/22/21 11/22/21 11/22/21 09:37 09:45 10:01 Temperature 98.2 F Pulse Rate 90 75 73 Respiratory 16 23 17 Rate Blood Pressure 130/54 Blood Pressure 100/60 [Left] O2 Sat by Pulse 99 99 Oximetry 11/22/21 11/22/21 11/22/21 10:02 10:03 10:31 Temperature 97.7 F Pulse Rate 77 77 74 Respiratory 20 20 Rate Blood Pressure 124/69 Blood Pressure 134/54 [Left] O2 Sat by Pulse 99 99 98 Oximetry 11/22/21 11/22/21 11:01 11:31 Temperature Pulse Rate 68 72 Respiratory 17 19 Rate Blood Pressure 138/74 130/75 Blood Pressure [Left] O2 Sat by Pulse 96 99 Oximetry - Reevaluation(s) Reevaluation #1: 11/22/21 11:55 Differential diagnosis, including but limited to: GERD, gastritis, hiatal hernia, pneumonia, costochondritis, acute coronary syndrome, pulmonary embolism Assessment and plan: 81-year-old gentleman, presenting with chest pain relieved by aspirin and nitroglycerin. Troponin negative x1. Chest x-ray unremarkable. D-dimer elevated, CT scan of the chest ordered. Anticipate admission to the medical service for cardiac risk stratification. D iscussed this with the patient using a Latvian community support specialist. He articulates understanding. EKG abnormal, but not a STEMI today Potassium of 5.7 reviewed and appreciated. Administer albuterol, fluids. Aspirin not ordered given that EMS administered aspirin. Hospital physician, Dr. Goyal to admit patient to the medical service. Contacted cardiology on-call, Patty Godfrey, working with Dr. Chun, of [facility] cardiology. They will follow in consultation. ER will follow as CT scan of the chest is performed 11/22/21 11:58 ED Medical Decision Making - Lab Data Result diagrams: 11/22/21 10:26 11/22/21 10:26 Vital Signs 11/22/21 11/22/21 11/22/21 09:37 09:45 10:01 Temperature 98.2 F Pulse Rate 90 75 73 Respiratory 16 23 17 Rate Blood Pressure 130/54 Blood Pressure 100/60 [Left] O2 Sat by Pulse 99 99 Oximetry 11/22/21 11/22/21 11/22/21 10:02 10:03 10:31 Temperature 97.7 F Pulse Rate 77 77 74 Respiratory 20 20 Rate Blood Pressure 124/69 Blood Pressure 134/54 [Left] O2 Sat by Pulse 99 99 98 Oximetry 11/22/21 11/22/21 11:01 11:31 Temperature Pulse Rate 68 72 Respiratory 17 19 Rate Blood Pressure 138/74 130/75 Blood Pressure [Left] O2 Sat by Pulse 96 99 Oximetry Lab Results 11/22/21 11/22/21 11/22/21 Range/Units 10:26 10:26 10:26 WBC 6.9 (4.5-11.0) K/mm3 RBC 4.31 (3.65-5.03) M/mm3 Hgb 12.8 (11.8-15.2) gm/dl Hct 38.3 (35.5-45.6) % MCV 89 (84-94) fl MCH 30 (28-32) pg MCHC 33 (32-34) % RDW 15.3 H (13.2-15.2) % Plt Count 212 (140-440) K/mm3 Lymph % (Auto) 19.0 (13.4-35.0) % [place] % (Auto) 7.1 (0.0-7.3) % Eos % (Auto) 15.0 H (0.0-4.3) % Baso % (Auto) 0.4 (0.0-1.8) % Lymph # (Auto) 1.3 (1.2-5.4) K/mm3 [place] # (Auto) 0.5 (0.0-0.8) K/mm3 Eos # (Auto) 1.0 H (0.0-0.4) K/mm3 Baso # (Auto) 0.0 (0.0-0.1) K/mm3 Seg Neutrophils % 58.5 (40.0-70.0) % Seg Neutrophils # 4.1 (1.8-7.7) K/mm3 PT 12.7 (12.2-14.9) Sec. INR 0.87 (0.87-1.13) D-Dimer 899.85 H (0-234) ng/mlDDU Sodium 131 L (137-145) mmol/L Potassium 5.7 H (3.6-5.0) mmol/L Chloride 99.6 (98-107) mmol/L Carbon Dioxide 21 L (22-30) mmol/L Anion Gap 16 mmol/L BUN 20 (9-20) mg/dL Creatinine 0.7 L (0.8-1.3) mg/dL Estimated GFR > 60 ml/min BUN/Creatinine Ratio 29 % Glucose 90 (75-100) mg/dL Calcium 9.5 (8.4-10.2) mg/dL Magnesium (1.7-2.3) mg/dL Total Bilirubin 0.30 (0.1-1.2) mg/dL AST 39 (5-40) units/L ALT 19 (7-56) units/L Alkaline Phosphatase 67 (35-129) units/L Total Creatine Kinase (55-170) units/L Troponin T < 0.010 (0.00-0.029) ng/mL Total Protein 7.6 (6.3-8.2) g/dL Albumin 3.9 (3.9-5) g/dL Albumin/Globulin Ratio 1.1 % 11/22/21 Range/Units 10:26 WBC (4.5-11.0) K/mm3 RBC (3.65-5.03) M/mm3 Hgb (11.8-15.2) gm/dl Hct (35.5-45.6) % MCV (84-94) fl MCH (28-32) pg MCHC (32-34) % RDW (13.2-15.2) % Plt Count (140-440) K/mm3 Lymph % (Auto) (13.4-35.0) % [place] % (Auto) (0.0-7.3) % Eos % (Auto) (0.0-4.3) % Baso % (Auto) (0.0-1.8) % Lymph # (Auto) (1.2-5.4) K/mm3 [place] # (Auto) (0.0-0.8) K/mm3 Eos # (Auto) (0.0-0.4) K/mm3 Baso # (Auto) (0.0-0.1) K/mm3 Seg Neutrophils % (40.0-70.0) % Seg Neutrophils # (1.8-7.7) K/mm3 PT (12.2-14.9) Sec. INR (0.87-1.13) D-Dimer (0-234) ng/mlDDU Sodium (137-145) mmol/L Potassium (3.6-5.0) mmol/L Chloride (98-107) mmol/L Carbon Dioxide (22-30) mmol/L Anion Gap mmol/L BUN (9-20) mg/dL Creatinine (0.8-1.3) mg/dL Estimated GFR ml/min BUN/Creatinine Ratio % Glucose (75-100) mg/dL Calcium (8.4-10.2) mg/dL Magnesium 2.40 H (1.7-2.3) mg/dL Total Bilirubin (0.1-1.2) mg/dL AST (5-40) units/L ALT (7-56) units/L Alkaline Phosphatase (35-129) units/L Total Creatine Kinase 58 (55-170) units/L Troponin T (0.00-0.029) ng/mL Total Protein (6.3-8.2) g/dL Albumin (3.9-5) g/dL Albumin/Globulin Ratio % - EKG Data -: EKG Interpreted by Ia EKG shows normal: sinus rhythm - EKG Data 11/22/21 11:54 EKG is interpreted at 09: 5 0 Motion artifact, sinus rhythm, 79 bpm. Borderline rightward axis deviation, QTC within normal limits, poor R wave progression. Abnormal EKG. Not a STEMI - Radiology Data Radiology results: pending, report reviewed, image reviewed CHEST 1 VIEW INDICATION: Chest Pain. COMPARISON: 12/08/2018 FINDINGS: Support devices: None. Heart: Within normal limits. The aorta is mildly ectatic. Lungs/Pleura: Moderate to severe emphysematous changes are again noted. No acute infiltrate, pleural effusion or pneumothorax. Additional findings: None. IMPRESSION: No acute findings. Emphysematous changes. Signer Name: Red Romero Jr, MD Signed: 11/22/2021 9:01 AM Workstation Name: [id number] CTA CHEST WITH CONTRAST INDICATION : acute chest pain OMNI 350 100ML. TECHN IQUE: Axial imaging performed through the chest, with contrast bolus timing set to maximize opacification of the pulmonary arteries. Sagittal and coronal reformatted images. 3-plane MIP reformatted images were obtained. All CT scans at this location are performed using CT dose reduction for ALARA by means of automated exposure control. 100 mL of intravenous contrast administered. COMPARISON: 12/08/2018 FINDINGS: Bolus: Contrast bolus timing is adequate. PTE: No filling defect is present to suggest PTE. Mediastinum: Heart size is within normal limits with moderate to severe coronary artery calcifications. No pericardial abnormality. Moderate atherosclerotic disease is noted in the thoracic aorta without acute abnormality. No pathologic mediastinal adenopathy. Lungs: Moderate to severe emphysematous changes are identified in the upper lung zones. Linear scarring in the right apical region with associated nodularity is unchanged since 2019. There is focal ill-defined airspace opacity in the posterior left upper lobe measuring 2.4 cm in diameter which is slightly more pronounced than on the previous exam when this measured 1.1 cm. This appears inflammatory in nature. No solid nodule or lung mass is detected. Bones: Osteopenia. Mild degenerative changes throughout the thoracic spine. No acute bony injury or bone lesion is detected. Upper abdomen: Limited imaging of the upper abdomen shows nothing acute. Scattered bilateral renal cysts appear unchanged. IMPRESSION: No evidence for pulmonary embolus. No acute cardiopulmonary process is appreciated. Emphysematous changes. Stable chronic linear scarring and associated nodularity in the right upper lobe. Focal ill- defined airspace opacity is identified in the posterior left upper lobe as described which appears inflammatory in nature. No discrete pulmonary mass is appreciated. Osteopenia. Signer Name: Red Romero Jr, MD Signed: 11/22/2021 12:17 PM Workstation Name: [id number] Critical care attestation.: If time is entered above; I have spent that time in minutes in the direct care of this critically ill patient, excluding procedure time. ED Disposition Clinical Impression: Acute chest pain, Hyperkalemia Disposition: 09 ADMITTED INPATIENT Is pt being admited?: Yes Does the pt Need Aspirin: No Condition: Stable Instructions: Chest Pain (ED) Referrals: PRIMARY CARE, [Primary Care Provider] - 3-5 Days Heart Score - HEART Score History: Slightly suspicious EKG: Non-specific Age: > 65 Risk factors: > 3 risk factors or hx of atherosclerotic disease Troponin: < normal limit HEART Score: 5 - EKG Read Time Time EKG Completed: 09:50 EKG Read Time: 09:50 - Critical Actions Critical Actions: 4-6 pts:12-16.6% risk of adverse cardiac event. Should be admitted
--- NOTE | 2021-11-22 10:05 | XRay Report ---
CHEST 1 VIEW INDICATION: Chest Pain. COMPARISON: 12/08/2018 FINDINGS: Support devices: None. Heart: Within normal limits. The aorta is mildly ectatic. Lungs/Pleura: Moderate to severe emphysematous changes are again noted. No acute infiltrate, pleural effusion or pneumothorax. Additional findings: None. IMPRESSION: No acute findings. Emphysematous changes. Signer Name: Red Romero Jr, MD Signed: 11/22/2021 10:01 AM Workstation Name: [id number]
[2021-11-22] MEDS ORDERED: FAMOTIDINE 20 MG/2 ML INJ IV ONE (10:22)
[2021-11-22] MEDS ORDERED: MORPHINE 2 MG/1 ML INJ IV ONE (10:22)
[2021-11-22] MEDS ORDERED: NITROGLYCERIN 0.4 MG TAB SUBL SL PRN (10:22)
[2021-11-22 11:15] LABS: Basophils % (Auto) 0.4 % (0.0-1.8); Hematocrit 38.3 % (35.5-45.6); Hemoglobin 12.8 gm/dl (11.8-15.2); Lymphocytes # (Auto) 1.3 K/mm3 (1.2-5.4); Mean Corpuscular HGB Conc 33 % (32-34); Mean Corpuscular Volume 89 fl (84-94); Monocytes # (Auto) 0.5 K/mm3 (0.0-0.8); Monocytes % (Auto) 7.1 % (0.0-7.3); Platelet Count 212 K/mm3 (140-440); Red Blood Count 4.31 M/mm3 (3.65-5.03); Red Cell Distribution Width 15.3 % (13.2-15.2)
[2021-11-22 11:28] LABS: INR 0.87 (0.87-1.13)
[2021-11-22 11:39] LABS: Alanine Aminotransferase 19 units/L (7-56); Albumin 3.9 g/dL (3.9-5); Blood Urea Nitrogen 20 mg/dL (9-20); Calcium 9.5 mg/dL (8.4-10.2); Hemolysis Index 206
[2021-11-22 11:42] LABS: BUN/Creatinine Ratio 29
[2021-11-22] MEDS ORDERED: SODIUM CHLORIDE 0.9% 500 ML 500 ML IV ONE (11:50)
[2021-11-22] MEDS ORDERED: ALBUTEROL 2.5 MG/3 ML NEBU IH ONE (11:59)
--- NOTE | 2021-11-22 13:22 | Cat Scan Report ---
CTA CHEST WITH CONTRAST INDICATION : acute chest pain OMNI 350 100ML. TECHNIQUE: Axial imaging performed through the chest, with contrast bolus timing set to maximize opa cification of the pulmonary arteries. Sagittal and coronal reformatted images. 3-plane MIP reformatte d images were obtained. All CT scans at this location are performed using CT dose reduction for ALAR A by means of automated exposure control. 100 mL of intravenous contrast administered. COMPARISON: 12/08/2018 FINDINGS: Bolus: Contrast bolus timing is adequate. PTE: No filling defect is present to suggest PTE. Mediastinum: Heart size is within normal limits with moderate to severe coronary artery calcificatio ns. No pericardial abnormality. Moderate atherosclerotic disease is noted in the thoracic aorta witho ut acute abnormality. No pathologic mediastinal adenopathy. Lungs: Moderate to severe emphysematous changes are identified in the upper lung zones. Linear scarr ing in the right apical region with associated nodularity is unchanged since 2019. There is focal ill -defined airspace opacity in the posterior left upper lobe measuring 2.4 cm in diameter which is slig htly more pronounced than on the previous exam when this measured 1.1 cm. This appears inflammatory i n nature. No solid nodule or lung mass is detected. Bones: Osteopenia. Mild degenerative changes throughout the thoracic spine. No acute bony injury or bone lesion is detected. Upper abdomen: Limited imaging of the upper abdomen shows nothing acute. Scattered bilateral renal cysts appear unchanged. IMPRESSION: No evidence for pulmonary embolus. No acute cardiopulmonary process is appreciated. Emphysematous changes. Stable chronic linear scarring and associated nodularity in the right upper lobe. Focal ill-defined a irspace opacity is identified in the posterior left upper lobe as described which appears inflammator y in nature. No discrete pulmonary mass is appreciated. Osteopenia. Signer Name: Red Romero Jr, MD Signed: 11/22/2021 1:17 PM Workstation Name: [id number]
[2021-11-22] MEDS ORDERED: DOXYCYCLINE 100 MG CAP PO ONE (13:39)
--- NOTE | 2021-11-22 14:16 | History and Physical Report ---
History of Present Illness History of present illness: 81 YO Male with BPV, Vascular Dementia, Cerebral Atherosclerosis, DM, GERD, BPH, DM, OA presents to ED for evaluation. [place] claim attorney: [id number] Past medical history: Diabetes, asthma, nicotine dependence, COPD and dementia The patient is an 81-year-old gentleman presenting to the ER today with complaints of sudden central chest pain. The chest pain does not radiate to the back, arms or neck. He denies vomiting and diaphoresis. He has chronic shortness of breath. Denies leg pain or leg swelling. Believes that he was admitted to [facility] last month for 19 days. He is uncertain why. His chest pain is improved with aspirin and nitroglycerin, administered by EMS. He denies hematemesis and bright red blood per rectum. -: Sudden Location: chest Severity scale (0 -10): 6 Consistency: constant Improves with: medication Worsens with: none Associated Symptoms: denies other symptoms - Related Data Home Medications Medication Instructions Recorded Confirmed Last Taken Meclizine [Antivert] 12.5 mg PO DAILY PRN 12/08/18 12/08/18 Unknown Simvastatin [Zocor] 20 mg PO DAILY 12/08/18 11/22/21 Unknown donepeziL [Aricept] 5 mg PO HS 12/08/18 11/22/21 Unknown metFORMIN [Glucophage] 500 mg PO BID 12/08/18 11/22/21 Unknown Empagliflozin [Jardiance] 25 mg PO DAILY 11/22/21 11/22/21 Unknown Meloxicam [Mobic] 7.5 mg PO QDAY 11/22/21 11/22/21 Unknown Montelukast [Singulair] 10 mg PO QPM 11/22/21 11/22/21 Unknown Pantoprazole Sodium 40 mg PO DAILY 11/22/21 11/22/21 Unknown Tamsulosin [Flomax] 0.4 mg PO QDAY 11/22/21 11/22/21 Unknown Previous Rx's Medication Instructions Recorded Last Taken Type ALBUTEROL Inhaler(NF) [VENTOLIN 1 puff IH QID 30 Days inha 12/11/18 Unknown Rx Inhaler(NF)] Azithromycin [Zithromax TAB] 500 mg PO QDAY #2 tablet 12/11/18 Unknown Rx Budesonide/Formoterol Fumarate 10.2 gm IH BID 30 Days hfa.aer.ad 12/11/18 Unknown Rx [Symbicort 160-4.5 Mcg Inhaler] Ondansetron [Zofran ODT TAB] 4 mg PO Q8HR PRN tab.rapdis 12/11/18 Unknown Rx oxyCODONE /ACETAMINOPHEN [Percocet 1 tab PO TID PRN tablet 12/11/18 Unknown Rx 5/325 mg] Allergies Allergy/AdvReac Type Severity Reaction Status Date / Time Beef Containing Products Allergy Anaphylaxis Verified 11/22/21 09:43 nut - unspecified Allergy Anaphylaxis Verified 11/22/21 09:43 Pork/Porcine Containing Allergy Anaphylaxis Verified 11/22/21 09:43 Products ED Review of Systems ROS: Stated complaint: CHEST PAIN Other details as noted in HPI Constitutional: denies: fever Eyes: denies: eye discharge Respiratory: shortness of breath Cardiovascular: chest pain Gastrointestinal: denies: abdominal pain, vomiting, hematemesis, melena, hematochezia Neurological: weakness Hematological/Lymphatic: denies: easy bleeding ED Past Medical Hx - Past Medical History Previous Medical History?: Yes Hx Hypertension: Yes Hx Congestive Heart Failure: Yes (Systolic CHF) Hx Diabetes: Yes Hx Asthma: Yes Hx COPD: Yes Hx Dementia: Yes Hx HIV: No - Surgical History Hx Open Heart Surgery: No Hx Cholecystectomy: No Hx Appendectomy: No Hx Breast Surgery: No - Social History Smoking Status: Current Some Day Smoker - Medications Home Medications: Home Medications Medication Instructions Recorded Confirmed Last Taken Type Meclizine [Antivert] 12.5 mg PO DAILY PRN 12/08/18 12/08/18 Unknown History Simvastatin [Zocor] 20 mg PO DAILY 12/08/18 11/22/21 Unknown History donepeziL [Aricept] 5 mg PO HS 12/08/18 11/22/21 Unknown History metFORMIN [Glucophage] 500 mg PO BID 12/08/18 11/22/21 Unknown History ALBUTEROL Inhaler(NF) [VENTOLIN 1 puff IH QID 30 Days inha 12/11/18 11/22/21 Unknown Rx Inhaler(NF)] Azithromycin [Zithromax TAB] 500 mg PO QDAY #2 tablet 12/11/18 Unknown Rx Budesonide/Formoterol Fumarate 10.2 gm IH BID 30 Days hfa.aer.ad 12/11/18 Unknown Rx [Symbicort 160-4.5 Mcg Inhaler] Ondansetron [Zofran ODT TAB] 4 mg PO Q8HR PRN tab.rapdis 12/11/18 Unknown Rx oxyCODONE /ACETAMINOPHEN [Percocet 1 tab PO TID PRN tablet 12/11/18 Unknown Rx 5/325 mg] Empagliflozin [Jardiance] 25 mg PO DAILY 11/22/21 11/22/21 Unknown History Meloxicam [Mobic] 7.5 mg PO QDAY 11/22/21 11/22/21 Unknown History Montelukast [Singulair] 10 mg PO QPM 11/22/21 11/22/21 Unknown History Pantoprazole Sodium 40 mg PO DAILY 11/22/21 11/22/21 Unknown History Tamsulosin [Flomax] 0.4 mg PO QDAY 11/22/21 11/22/21 Unknown History ED Physical Exam - General Medications and Allergies Allergies Allergy/AdvReac Type Severity Reaction Status Date / Time Beef Containing Products Allergy Anaphylaxis Verified 11/22/21 09:43 nut - unspecified Allergy Anaphylaxis Verified 11/22/21 09:43 Pork/Porcine Containing Allergy Anaphylaxis Verified 11/22/21 09:43 Products Home Medications Medication Instructions Recorded Confirmed Last Taken Type Meclizine [Antivert] 12.5 mg PO DAILY PRN 12/08/18 12/08/18 Unknown History Simvastatin [Zocor] 20 mg PO DAILY 12/08/18 11/22/21 Unknown History donepeziL [Aricept] 5 mg PO HS 12/08/18 11/22/21 Unknown History metFORMIN [Glucophage] 500 mg PO BID 12/08/18 11/22/21 Unknown History ALBUTEROL Inhaler(NF) [VENTOLIN 1 puff IH QID 30 Days inha 12/11/18 11/22/21 Unknown Rx Inhaler(NF)] Azithromycin [Zithromax TAB] 500 mg PO QDAY #2 tablet 12/11/18 Unknown Rx Budesonide/Formoterol Fumarate 10.2 gm IH BID 30 Days hfa.aer.ad 12/11/18 Unknown Rx [Symbicort 160-4.5 Mcg Inhaler] Ondansetron [Zofran ODT TAB] 4 mg PO Q8HR PRN tab.rapdis 12/11/18 Unknown Rx oxyCODONE /ACETAMINOPHEN [Percocet 1 tab PO TID PRN tablet 12/11/18 Unknown Rx 5/325 mg] Empagliflozin [Jardiance] 25 mg PO DAILY 11/22/21 11/22/21 Unknown History Meloxicam [Mobic] 7.5 mg PO QDAY 11/22/21 11/22/21 Unknown History Montelukast [Singulair] 10 mg PO QPM 11/22/21 11/22/21 Unknown History Pantoprazole Sodium 40 mg PO DAILY 11/22/21 11/22/21 Unknown History Tamsulosin [Flomax] 0.4 mg PO QDAY 11/22/21 11/22/21 Unknown History Active Meds: Active Medications Nitroglycerin (Nitroglycerin 0.4 Mg Tab Subl) 0.4 mg SL .Q5MIN PRN PRN Reason: Chest Pain Exam - Constitutional Vitals: Temp Pulse Resp BP Pulse Ox 97.7 F 72 19 130/75 99 11/22/21 10:02 11/22/21 11:31 11/22/21 11:31 11/22/21 11:31 11/22/21 11:31 HEART Score - HEART Score EKG: Non-specific Age: > 65 Risk factors: > 3 risk factors or hx of atherosclerotic disease Troponin: Troponin T < 0.010 ng/mL (0.00-0.029) 11/22/21 10: Troponin: < normal limit - Critical Actions Critical Actions: 4-6 pts:12-16.6% risk of adverse cardiac event. Should be admitted Results - Labs CBC & Chem 7: 11/22/21 10:26 11/22/21 10:26 Labs: Abnormal lab results 11/22/21 11/22/21 11/22/21 Range/Units 10: 10: 10: RDW 15.3 H (13.2-15.2) % Eos % (Auto) 15.0 H (0.0-4.3) % Eos # (Auto) 1.0 H (0.0-0.4) K/mm3 D-Dimer 899.85 H (0-234) ng/mlDDU Sodium 131 L (137-145) mmol/L Potassium 5.7 H (3.6-5.0) mmol/L Carbon Dioxide 21 L (22-30) mmol/L Creatinine 0.7 L (0.8-1.3) mg/dL Magnesium (1.7-2.3) mg/dL 11/22/21 Range/Units 10:26 RDW (13.2-15.2) % Eos % (Auto) (0.0-4.3) % Eos # (Auto) (0.0-0.4) K/mm3 D-Dimer (0-234) ng/mlDDU Sodium (137-145) mmol/L Potassium (3.6-5.0) mmol/L Carbon Dioxide (22-30) mmol/L Creatinine (0.8-1.3) mg/dL Magnesium 2.40 H (1.7-2.3) mg/dL
[2021-11-22] MEDS ORDERED: ONDANSETRON 4 MG/2 ML INJ IV PRN (14:17)
[2021-11-22] MEDS ORDERED: MORPHINE 2 MG/1 ML INJ IV PRN (14:17)
[2021-11-22] MEDS ORDERED: oxyCODONE /ACETAMINOPHEN 5-325MG TAB PO PRN (14:17)
[2021-11-22] MEDS ORDERED: ACETAMINOPHEN 325 MG TAB PO PRN (15:00)
[2021-11-22] MEDS ORDERED: MECLIZINE 12.5 MG TAB PO PRN (15:00)
--- NOTE | 2021-11-22 15:08 | Consultation ---
History of Present Illness Consult date: 11/22/21 Requesting physician: NICOLÁS NAJERA Consult reason: chest pain History of present illness: Patient 81-year-old with a past medical history of dementia, asthma/COPD, hypertension, Parkinson's disease, diabetes who was brought to the hospital for complaint of chest pain which started this morning. History taken from chart and per discussion with patient's family due to language barrier. Per documentation patient suddenly developed chest pain this a.m. transported to [facility]. Patient's pain was reported to be relieved with aspirin and nitroglycerin per EMS. Of note patient was discharged from [facility] in September due to liver abscesses. CT chest showed no PE and no acute cardiopulmonary process. Furthermore, when asked patient felt his pain patient pointed to his left shoulder. Patient is previously unknown to our practice. Cardiology is consulted for chest pain. Past History Past Medical History: diabetes, hypertension, other (Dementia, Parkinson's) Past Surgical History: Other (Unable to obtain) Social history: other (Unable to obtain) Family history: other (Unable to obtain) Medications and Allergies Allergies Allergy/AdvReac Type Severity Reaction Status Date / Time Beef Containing Products Allergy Anaphylaxis Verified 11/22/21 14:26 nut - unspecified Allergy Anaphylaxis Verified 11/22/21 14:26 Pork/Porcine Containing Allergy Anaphylaxis Verified 11/22/21 14:26 Products Home Medications Medication Instructions Recorded Confirmed Last Taken Type Meclizine [Antivert] 12.5 mg PO DAILY PRN 12/08/18 12/08/18 Unknown History Simvastatin [Zocor] 20 mg PO DAILY 12/08/18 11/22/21 Unknown History donepeziL [Aricept] 5 mg PO HS 12/08/18 11/22/21 Unknown History metFORMIN [Glucophage] 500 mg PO BID 12/08/18 11/22/21 Unknown History ALBUTEROL Inhaler(NF) [VENTOLIN 1 puff IH QID 30 Days inha 12/11/18 11/22/21 Unknown Rx Inhaler(NF)] Azithromycin [Zithromax TAB] 500 mg PO QDAY #2 tablet 12/11/18 Unknown Rx Budesonide/Formoterol Fumarate 10.2 gm IH BID 30 Days hfa.aer.ad 12/11/18 Unknown Rx [Symbicort 160-4.5 Mcg Inhaler] Ondansetron [Zofran ODT TAB] 4 mg PO Q8HR PRN tab.rapdis 12/11/18 Unknown Rx oxyCODONE /ACETAMINOPHEN [Percocet 1 tab PO TID PRN tablet 12/11/18 Unknown Rx 5/325 mg] Empagliflozin [Jardiance] 25 mg PO DAILY 11/22/21 11/22/21 Unknown History Meloxicam [Mobic] 7.5 mg PO QDAY 11/22/21 11/22/21 Unknown History Montelukast [Singulair] 10 mg PO QPM 11/22/21 11/22/21 Unknown History Pantoprazole Sodium 40 mg PO DAILY 11/22/21 11/22/21 Unknown History Tamsulosin [Flomax] 0.4 mg PO QDAY 11/22/21 11/22/21 Unknown History Active Meds: Active Medications Acetaminophen (Acetaminophen 325 Mg Tab) 650 mg PO Q4H PRN PRN Reason: Pain MILD(1-3)/Fever >100.5/PICKETT Albuterol (Albuterol 2.5 Mg/3 Ml Nebu) 2.5 mg IH Q4HRT PRN PRN Reason: Shortness Of Breath Donepezil HCl (Donepezil 5 Mg Tab) 5 mg PO HS KARUNA Famotidine (Famotidine 20 Mg Tab) 20 mg PO BID KARUNA Meclizine HCl (Meclizine 12.5 Mg Tab) 12.5 mg PO DAILY PRN PRN Reason: Vertigo Meloxicam (Meloxicam 7.5 Mg Tab) 7.5 mg PO QDAY COUNTS INCLUDE 234 BEDS AT THE [facility] Montelukast Sodium (Montelukast 10 Mg Tab) 10 mg PO QPM KARUNA Morphine Sulfate (Morphine 2 Mg/1 Ml Inj) 2 mg IV Q4H PRN PRN Reason: Pain, Moderate (4-6) Nitroglycerin (Nitroglycerin 0.4 Mg Tab Subl) 0.4 mg SL .Q5MIN PRN PRN Reason: Chest Pain Ondansetron HCl (Ondansetron 4 Mg/2 Ml Inj) 4 mg IV Q8H PRN PRN Reason: Nausea And Vomiting Oxycodone/Acetaminophen (Oxycodone /Acetaminophen 5-325mg Tab) 1 tab PO Q16H PRN PRN Reason: Pain, Moderate (4-6) Pravastatin Sodium (Pravastatin 40 Mg Tab) 40 mg PO QHS K[facility] Sodium Chloride (Sodium Chloride 0.9% 10 Ml Flush Syringe) 10 ml IV BID KARUNA Sodium Chloride (Sodium Chloride 0.9% 10 Ml Flush Syringe) 10 ml IV PRN PRN PRN Reason: LINE FLUSH Tamsulosin HCl (Tamsulosin 0.4 Mg Cap) 0.4 mg PO QDAY KARUNA Review of Systems ROS unobtainable: due to mental status Physical Examination Vital Signs Temp Pulse Resp BP Pulse Ox 98.2 F 90 16 100/60 99 11/22/21 09:37 11/22/21 09:37 11/22/21 09:37 11/22/21 09:37 11/22/21 09:37 General appearance: no acute distress HEENT: Positive: Normocephaly Cardiac: Positive: Reg Rate and Rhythm Lungs: Positive: Decreased Breath Sounds Neuro: Positive: Grossly Intact Abdomen: Positive: Soft Skin: Negative: Rash, Suspicious Lesions, Ulceration Extremities: Present: upper extr. pulses. Absent: edema Results 11/22/21 10:26 11/22/21 10:26 Cardiac Enzymes 11/22/21 Range/Units 10: AST 39 (5-40) units/L Coagulation 11/22/21 Range/Units 10:26 PT 12.7 (12.2-14.9) Sec. INR 0.87 (0.87-1.13) CBC 11/22/21 Range/Units 10:26 WBC 6.9 (4.5-11.0) K/mm3 RBC 4.31 (3.65-5.03) M/mm3 Hgb 12.8 (11.8-15.2) gm/dl Hct 38.3 (35.5-45.6) % Plt Count 212 (140-440) K/mm3 Lymph # (Auto) 1.3 (1.2-5.4) K/mm3 [place] # (Auto) 0.5 (0.0-0.8) K/mm3 Eos # (Auto) 1.0 H (0.0-0.4) K/mm3 Baso # (Auto) 0.0 (0.0-0.1) K/mm3 Comprehensive Metabolic Panel 11/22/21 Range/Units 10:26 Sodium 131 L (137-145) mmol/L Potassium 5.7 H (3.6-5.0) mmol/L Chloride 99.6 (98-107) mmol/L Carbon Dioxide 21 L (22-30) mmol/L BUN 20 (9-20) mg/dL Creatinine 0.7 L (0.8-1.3) mg/dL Glucose 90 (75-100) mg/dL Calcium 9.5 (8.4-10.2) mg/dL AST 39 (5-40) units/L ALT 19 (7-56) units/L Alkaline Phosphatase 67 (35-129) units/L Total Protein 7.6 (6.3-8.2) g/dL Albumin 3.9 (3.9-5) g/dL - Imaging and Cardiology Echo: pending EKG interpretations - Telemetry EKG Rhythm: Sinus Rhythm - EKG Sinus rhythms and dysrhythmias: sinus rhythm Repolarization changes or abnormalities: nonspecific abnormality, ST segment, and/or T wave Assessment and Plan Patient 81-year-old with a past medical history of dementia, asthma/COPD, hypertension, Parkinson's disease, diabetes who was brought to the hospital for complaint of chest pain which started the morning of admission Chest pain Elevated D-dimer-CT negative for PE Hypertension Asthma/COPD Dementia Parkinson's disease Diabetes History of liver abscesses Plan: EKG shows sinus rhythm 79 with no acute ischemic changes. Troponins negative x2. Repeat cardiac enzymes pending When asked to show where patient had pain patient pointed to left shoulder BNP pending. Patient appears euvolemic on exam. Echo pending Repeat EKG pending Continue to closely monitor Patient seen in conjunction with Dr. Chun who agrees with this plan of care - Patient Problems (1) Acute chest pain Current Visit: Yes Status: Acute (2) Diabetes Current Visit: No Status: Acute
[2021-11-22] MEDS ORDERED: ALBUTEROL 2.5 MG/3 ML NEBU IH PRN (16:00)
--- NOTE | 2021-11-22 17:19 | History and Physical Report ---
History of Present Illness Date of admission: 11/22/21 14:17 Chief complaint: I have pain in my chest History of present illness: 81 YO Male with DM, Asthma, Nicotine Dependence, COPD, Vascular Dementia, Cerebral Atherosclerosis, BPV, DM, GERD, BPH, OA presents to ED for evaluation. Patient reports "I have pain in my chest". Patient states that he has experienced a sudden onset of chest pain. Patient states that pain is 7/10, constant, nonradiating, worsened with exertion, relieved with rest. Patient acknowledges decreased exercise tolerance, dyspnea on exertion as well as dyspnea at rest. EMS was notified and upon arrival the patient was found to be in distress and subsequently transported to [facility] for further care and evaluation of the aforementioned symptoms. The patient was seen and evaluated in the emergency department. All lab and imaging studies reviewed. Patient found to have angina at rest as well as clinical symptoms consistent with diastolic CHF. Patient admitted to telemetry and initiated on CHF protocol as well as ACS protocol. Cardiology team consulted in ED. Patient denies fever, chills, palpitation, productive cough, skin rash, recent contact, known exposure to COVID-19. Prior admission on 12/08/2018 reviewed. All medication listed at time of admission has been reconciled. Advanced care planning conducted in ED. Past History Past Medical History: COPD, diabetes, hypertension, other (Dementia, Parkinso n's, see HPI) Past Surgical History: No surgical history, Other (Reviewed) Social history: , smoking, other (Unable to obtain). denies: alcohol abuse Family history: other (Unable to obtain) Medications and Allergies Allergies Allergy/AdvReac Type Severity Reaction Status Date / Time Beef Containing Products Allergy Anaphylaxis Verified 11/22/21 14:26 nut - unspecified Allergy Anaphylaxis Verified 11/22/21 14:26 Pork/Porcine Containing Allergy Anaphylaxis Verified 11/22/21 14:26 Products Home Medications Medication Instructions Recorded Confirmed Last Taken Type Meclizine [Antivert] 12.5 mg PO DAILY PRN 12/08/18 12/08/18 Unknown History Simvastatin [Zocor] 20 mg PO DAILY 12/08/18 11/22/21 Unknown History donepeziL [Aricept] 5 mg PO HS 12/08/18 11/22/21 Unknown History metFORMIN [Glucophage] 500 mg PO BID 12/08/18 11/22/21 Unknown History ALBUTEROL Inhaler(NF) [VENTOLIN 1 puff IH QID 30 Days inha 12/11/18 11/22/21 Unknown Rx Inhaler(NF)] Azithromycin [Zithromax TAB] 500 mg PO QDAY #2 tablet 12/11/18 Unknown Rx Budesonide/Formoterol Fumarate 10.2 gm IH BID 30 Days hfa.aer.ad 12/11/18 Unknown Rx [Symbicort 160-4.5 Mcg Inhaler] Ondansetron [Zofran ODT TAB] 4 mg PO Q8HR PRN tab.rapdis 12/11/18 Unknown Rx oxyCODONE /ACETAMINOPHEN [Percocet 1 tab PO TID PRN tablet 12/11/18 Unknown Rx 5/325 mg] Empagliflozin [Jardiance] 25 mg PO DAILY 11/22/21 11/22/21 Unknown History Meloxicam [Mobic] 7.5 mg PO QDAY 11/22/21 11/22/21 Unknown History Montelukast [Singulair] 10 mg PO QPM 11/22/21 11/22/21 Unknown History Pantoprazole Sodium 40 mg PO DAILY 11/22/21 11/22/21 Unknown History Tamsulosin [Flomax] 0.4 mg PO QDAY 11/22/21 11/22/21 Unknown History Active Meds: Active Medications Acetaminophen (Acetaminophen 325 Mg Tab) 650 mg PO Q4H PRN PRN Reason: Pain MILD(1-3)/Fever >100.5/PICKETT Albuterol (Albuterol 2.5 Mg/3 Ml Nebu) 2.5 mg IH Q4HRT PRN PRN Reason: Shortness Of Breath Donepezil HCl (Donepezil 5 Mg Tab) 5 mg PO HS KARUNA Famotidine (Famotidine 20 Mg Tab) 20 mg PO BID KARUNA Meclizine HCl (Meclizine 12.5 Mg Tab) 12.5 mg PO DAILY PRN PRN Reason: Vertigo Meloxicam (Meloxicam 7.5 Mg Tab) 7.5 mg PO QDAY KAR[facility]NA Montelukast Sodium (Montelukast 10 Mg Tab) 10 mg PO QPM K[facility]NA Morphine Sulfate (Morphine 2 Mg/1 Ml Inj) 2 mg IV Q4H PRN PRN Reason: Pain, Moderate (4-6) Nitroglycerin (Nitroglycerin 0.4 Mg Tab Subl) 0.4 mg SL .Q5MIN PRN PRN Reason: Chest Pain Ondansetron HCl (Ondansetron 4 Mg/2 Ml Inj) 4 mg IV Q8H PRN PRN Reason: Nausea And Vomiting Oxycodone/Acetaminophen (Oxycodone /Acetaminophen 5-325mg Tab) 1 tab PO Q16H PRN PRN Reason: Pain, Moderate (4-6) Pravastatin Sodium (Pravastatin 40 Mg Tab) 40 mg PO QHS [facility] Sodium Chloride (Sodium Chloride 0.9% 10 Ml Flush Syringe) 10 ml IV BID KARUNA Sodium Chloride (Sodium Chloride 0.9% 10 Ml Flush Syringe) 10 ml IV PRN PRN PRN Reason: LINE FLUSH Tamsulosin HCl (Tamsulosin 0.4 Mg Cap) 0.4 mg PO QDAY [facility] Review of Systems Constitutional: no weight loss, no weight gain, no fever, no chills Ears, nose, mouth and throat: no ear pain, no decreased hearing, no nasal congestion, no nasal discharge Cardiovascular: chest pain, dyspnea on exertion, decreased exercise tolerance Respiratory: no cough, no cough with sputum Gastrointestinal: no abdominal pain, no nausea, no vomiting, no diarrhea, no constipation Genitourinary Male: no hematuria, no flank pain, no discharge, no urinary hesitancy Rectal: no pain, no incontinence, no bleeding Musculoskeletal: no neck stiffness, no neck pain, no arm numbness/tingling, no low back pain, no shooting leg pain, no leg numbness/tingling Integumentary: no rash, no pruritis, no redness, no sores, no wounds Neurological: no head injury, no paralysis, no parathesias, no tingling Psychiatric: no anxiety, no change in sleep habits, no insomnia, no hypersomnia, no disorientation Endocrine: no cold intolerance, no polyphagia, no polydipsia, no polyuria, no nocturia Hematologic/Lymphatic: no easy bruising, no easy bleeding Allergic/Immunologic: no urticaria, no allergic rhinitis Exam - Constitutional Vitals: Temp Pulse Resp BP Pulse Ox 97.7 F 93 H 20 115/65 96 11/22/21 10:02 11/22/21 16:30 11/22/21 16:30 11/22/21 16:30 11/22/21 16:30 General appearance: Present: mild distress - EENT Eyes: Present: PERRL ENT: hearing intact, clear oral mucosa - Neck Neck: Present: supple, normal ROM - Respiratory Respiratory effort: labored, accessory muscle use Respiratory: bilateral: diminished, rales - Cardiovascular Heart Sounds: Present: S1 & S2. Absent: rub, click - Extremities Extremities: pulses symmetrical Extremity abnormal: edema Peripheral Pulses: within normal limits - Abdominal General gastrointestinal: Present: soft, non-tender, non-distended, normal bowel sounds Male genitourinary: Present: normal - Integumentary Integumentary: Present: clear, warm, dry - Musculoskeletal Musculoskeletal: gait normal, strength equal bilaterally - Psychiatric Psychiatric: appropriate mood/affect, intact judgment & insight - Neurologic Neurologic: CNII-XII intact, moves all extremities HEART Score - HEART Score EKG: Non-specific Age: > 65 Risk factors: > 3 risk factors or hx of atherosclerotic disease Troponin: Troponin T < 0.010 ng/mL (0.00-0.029) 11/22/21 14:32 Troponin: < normal limit - Critical Actions Critical Actions: 4-6 pts:12-16.6% risk of adverse cardiac event. Should be admitted Results - Labs CBC & Chem 7: 11/22/21 10:26 11/22/21 10:26 Labs: Abnormal lab results 11/22/21 11/22/21 11/22/21 Range/Units 10:26 10:26 10:26 RDW 15.3 H (13.2-15.2) % Eos % (Auto) 15.0 H (0.0-4.3) % Eos # (Auto) 1.0 H (0.0-0.4) K/mm3 D-Dimer 899.85 H (0-234) ng/mlDDU Sodium 131 L (137-145) mmol/L Potassium 5.7 H (3.6-5.0) mmol/L Carbon Dioxide 21 L (22-30) mmol/L Creatinine 0.7 L (0.8-1.3) mg/dL Magnesium (1.7-2.3) mg/dL 11/22/21 Range/Units 10:26 RDW (13.2-15.2) % Eos % (Auto) (0.0-4.3) % Eos # (Auto) (0.0-0.4) K/mm3 D-Dimer (0-234) ng/mlDDU Sodium (137-145) mmol/L Potassium (3.6-5.0) mmol/L Carbon Dioxide (22-30) mmol/L Creatinine (0.8-1.3) mg/dL Magnesium 2.40 H (1.7-2.3) mg/dL Assessment and Plan - Patient Problems (1) Angina at rest Current Visit: Yes Status: Acute Plan to address problem: ACS protocol: Serial cardiac enzymes, EKG, telemetry monitoring, morphine, supplemental oxygen, nitro, aspirin. Further care and evaluation as per cardiology team. (2) Diastolic CHF Current Visit: Yes Status: Acute Qualifiers: Heart failure chronicity: acute Qualified Code(s): I50.31 - Acute diastolic (congestive) heart failure Plan to address problem: Strict I/O, monitor urine output every shift, daily weight, afterload reduction, blood pressure control, thyroid panel, magnesium level, cardiology team consulted, echocardiogram ordered and pending at time of admission (3) GERD (gastroesophageal reflux disease) Current Visit: Yes Status: Acute Qualifiers: Esophagitis presence: without esophagitis Qualified Code(s): K21.9 - Gastro-esophageal reflux disease without esophagitis Plan to address problem: PPI therapy, supportive care. (4) Diabetes Current Visit: Yes Status: Acute Plan to address problem: Consistent carbohydrate diet, Accu-Chek, insulin protocol, hypoglycemia protocol. (5) BPH (benign prostatic hyperplasia) Current Visit: Yes Status: Acute Qualifiers: Lower urinary tract symptom detail: unspecified Plan to address problem: Supportive care, continue medical management. Outpatient urology follow-up. (6) Vascular dementia Current Visit: Yes Status: Acute Qualifiers: Dementia behavioral disturbance: without behavioral disturbance Qualified Code(s): F01.50 - Vascular dementia without behavioral disturbance Plan to address problem: Verbal prompting, verbal redirection, benzodiazepine therapy as clinically indicated. (7) Cerebral atherosclerosis Current Visit: Yes Status: Acute Plan to address problem: Risk factor reduction, antiplatelet therapy as clinically indicated. (8) DVT prophylaxis Current Visit: No Status: Acute Plan to address problem: SCD to bilateral lower extremities while in bed (9) Advance care planning Current Visit: Yes Status: Acute Plan to address problem: Disease education conducted, care plan discussed, diagnoses discussed, prognosis discussed, patient is full code. Patient acknowledges understanding and agreement with care plan, +30 minutes.
[2021-11-22] MEDS: DONEPEZIL 5 MG TAB PO SCH (21:06)
[2021-11-22] MEDS: PRAVASTATIN 40 MG TAB PO SCH (21:07)
[2021-11-22] MEDS: FAMOTIDINE 20 MG TAB PO SCH (21:07)
[2021-11-23] MEDS: MELOXICAM 7.5 MG TAB PO SCH ×2 (08:48→10:00)
[2021-11-23] MEDS: FAMOTIDINE 20 MG TAB PO SCH ×3 (08:48→21:55)
[2021-11-23] MEDS: TAMSULOSIN 0.4 MG CAP PO SCH ×2 (08:49→10:00)
[2021-11-23] MEDS ORDERED: SIMVASTATIN 20 MG PO SCH (10:00)
--- NOTE | 2021-11-23 10:43 | Progress Note ---
Assessment and Plan Patient 81-year-old with a past medical history of dementia, asthma/COPD, hypertension, Parkinson's disease, diabetes who was brought to the hospital for complaint of chest pain which started the morning of admission Chest pain Elevated D-dimer-CT negative for PE Hypertension Asthma/COPD Dementia Parkinson's disease Diabetes History of liver abscesses Plan: Repeat CMP Follow-up echocardiogram Troponin x 3/EKG/BNP are unremarkable - Patient Problems (1) BPH (benign prostatic hyperplasia) Current Visit: Yes Status: Acute Qualifiers: Lower urinary tract symptom detail: unspecified (2) Cerebral atherosclerosis Current Visit: Yes Status: Acute (3) Diabetes Current Visit: Yes Status: Acute (4) Diastolic CHF Current Visit: Yes Status: Acute Qualifiers: Heart failure chronicity: acute Qualified Code(s): I50.31 - Acute diastolic (congestive) heart failure (5) GERD (gastroesophageal reflux disease) Current Visit: Yes Status: Acute Qualifiers: Esophagitis presence: without esophagitis Qualified Code(s): K21.9 - Gastro-esophageal reflux disease without esophagitis (6) Vascular dementia Current Visit: Yes Status: Acute Qualifiers: Dementia behavioral disturbance: without behavioral disturbance Qualified Code(s): F01.50 - Vascular dementia without behavioral disturbance (7) COPD with acute exacerbation Current Visit: No Status: Acute (8) Diabetes Current Visit: No Status: Acute Subjective Interval history: No complaints today. Objective Vital Signs Temp Pulse Resp BP Pulse Ox 11/23/21 09:21 97 11/23/21 09:08 97.9 F 78 16 101/62 97 11/23/21 03:47 98.0 F 72 18 125/53 96 11/22/21 23:07 98.1 F 73 20 137/68 97 11/22/21 22:46 98 11/22/21 21:39 97 11/22/21 20:19 97.8 F 71 17 143/66 100 11/22/21 17:30 81 20 130/62 97 11/22/21 17:20 81 19 130/64 97 11/22/21 17:10 82 19 130/64 99 11/22/21 17:00 89 22 130/64 98 11/22/21 16:50 93 H 19 115/65 98 11/22/21 16:40 83 22 115/65 98 11/22/21 16:30 93 H 20 115/65 96 11/22/21 16:00 92 H 18 119/66 97 11/22/21 15:30 95 H 18 124/63 96 11/22/21 15:00 89 16 118/62 96 11/22/21 14:30 110 H 27 H 136/65 96 11/22/21 14:00 99 H 20 124/57 95 11/22/21 13:30 100 H 17 126/57 96 11/22/21 13:00 99 H 18 103/51 99 11/22/21 12:30 65 17 129/71 100 11/22/21 12:00 69 21 129/71 98 11/22/21 11:31 72 19 130/75 99 11/22/21 11:01 68 17 138/74 96 - Physical Examination HEENT: Positive: Normocephaly Neuro: Positive: Grossly Intact Abdomen: Positive: Soft Skin: Negative: Rash, Suspicious Lesions, Ulceration Extremities: Present: upper extr. pulses. Absent: edema - Labs and Meds Cardiac Enzymes 11/22/21 Range/Units 10:26 AST 39 (5-40) units/L Coagulation 11/22/21 Range/Units 10:26 PT 12.7 (12.2-14.9) Sec. INR 0.87 (0.87-1.13) CBC 11/22/21 Range/Units 10:26 WBC 6.9 (4.5-11.0) K/mm3 RBC 4.31 (3.65-5.03) M/mm3 Hgb 12.8 (11.8-15.2) gm/dl Hct 38.3 (35.5-45.6) % Plt Count 212 (140-440) K/mm3 Lymph # (Auto) 1.3 (1.2-5.4) K/mm3 Mobile # (Auto) 0.5 (0.0-0.8) K/mm3 Eos # (Auto) 1.0 H (0.0-0.4) K/mm3 Baso # (Auto) 0.0 (0.0-0.1) K/mm3 Comprehensive Metabolic Panel 11/22/21 Range/Units 10:26 Sodium 131 L (137-145) mmol/L Potassium 5.7 H (3.6-5.0) mmol/L Chloride 99.6 (98-107) mmol/L Carbon Dioxide 21 L (22-30) mmol/L BUN 20 (9-20) mg/dL Creatinine 0.7 L (0.8-1.3) mg/dL Glucose 90 (75-100) mg/dL Calcium 9.5 (8.4-10.2) mg/dL AST 39 (5-40) units/L ALT 19 (7-56) units/L Alkaline Phosphatase 67 (35-129) units/L Total Protein 7.6 (6.3-8.2) g/dL Albumin 3.9 (3.9-5) g/dL - Imaging and Cardiology Echo: pending - EKG Sinus rhythms and dysrhythmias: sinus rhythm Repolarization changes or abnormalities: nonspecific abnormality, ST segment, and/or T wave
--- NOTE | 2021-11-23 11:42 | Progress Note ---
Assessment and Plan Assessment and plan: 81-year-old male with past medical history of dementia, asthma/COPD, hypertension, Parkinson's disease and diabetes mellitus type 2 who presented through the emergency department with chief complaint of chest pain Chest pain Elevated D-dimer. CT negative for PE Hypertension Asthma/COPD Dementia Parkinson's disease Diabetes mellitus type 2 History of liver abscess 11/23/2021. Follow-up CMP and echocardiogram. Cardiac isoenzymes have been unremarkable. We will continue per cardiology recommendations History Interval history: No new issues overnight Hospitalist Physical - Constitutional Vitals: Temp Pulse Resp BP Pulse Ox 97.9 F 78 16 101/62 97 11/23/21 09:08 11/23/21 09:08 11/23/21 09:08 11/23/21 09:08 11/23/21 09:21 General appearance: Present: mild distress - EENT Eyes: Present: PERRL, EOM intact ENT: hearing intact, clear oral mucosa, dentition normal - Neck Neck: Present: supple, normal ROM - Respiratory Respiratory effort: normal Respiratory: bilateral: CTA - Cardiovascular Rhythm: regular Heart Sounds: Present: S1 & S2. Absent: gallop, rub - Extremities Extremities: no ischemia, No edema, Full ROM - Abdominal General gastrointestinal: soft, non-tender, non-distended, normal bowel sounds - Integumentary Integumentary: Present: clear, warm, dry - Neurologic Neurologic: CNII-XII intact, moves all extremities HEART Score - HEART Score EKG: Non-specific Age: > 65 Risk factors: > 3 risk factors or hx of atherosclerotic disease Troponin: Troponin T < 0.010 ng/mL (0.00-0.029) 11/22/21 14:32 Troponin: < normal limit - Critical Actions Critical Actions: 4-6 pts:12-16.6% risk of adverse cardiac event. Should be admitted Results - Labs CBC & Chem 7: 11/22/21 10:26 11/22/21 10:26 Labs: Laboratory Last Values WBC 6.9 K/mm3 (4.5-11.0) 11/22/21 10:26 RBC 4.31 M/mm3 (3.65-5.03) 11/22/21 10:26 Hgb 12.8 gm/dl (11.8-15.2) 11/22/21 10:26 Hct 38.3 % (35.5-45.6) 11/22/21 10: MCV 89 fl (84-94) 11/22/21 10: MCH 30 pg (28-32) 11/22/21 10: MCHC 33 % (32-34) 11/22/21 10:26 RDW 15.3 % (13.2-15.2) H 11/22/21 10:26 Plt Count 212 K/mm3 (140-440) 11/22/21 10:26 Lymph % (Auto) 19.0 % (13.4-35.0) 11/22/21 10: [place] % (Auto) 7.1 % (0.0-7.3) 11/22/21 10: Eos % (Auto) 15.0 % (0.0-4.3) H 11/22/21 10: Baso % (Auto) 0.4 % (0.0-1.8) 11/22/21 10: Lymph # (Auto) 1.3 K/mm3 (1.2-5.4) 11/22/21 10: [place] # (Auto) 0.5 K/mm3 (0.0-0.8) 11/22/21 10: Eos # (Auto) 1.0 K/mm3 (0.0-0.4) H 11/22/21 10: Baso # (Auto) 0.0 K/mm3 (0.0-0.1) 11/22/21 10: Seg Neutrophils % 58.5 % (40.0-70.0) 11/22/21 10: Seg Neutrophils # 4.1 K/mm3 (1.8-7.7) 11/22/21 10:26 PT 12.7 Sec. (12.2-14.9) 11/22/21 10: INR 0.87 (0.87-1.13) 11/22/21 10: D-Dimer 899.85 ng/mlDDU (0-234) H 11/22/21 10:26 Sodium 131 mmol/L (137-145) L 11/22/21 10:26 Potassium 5.7 mmol/L (3.6-5.0) H 11/22/21 10: Chloride 99.6 mmol/L (98-107) 11/22/21 10:26 Carbon Dioxide 21 mmol/L (22-30) L 11/22/21 10:26 Anion Gap 16 mmol/L 11/22/21 10:26 BUN 20 mg/dL (9-20) 11/22/21 10:26 Creatinine 0.7 mg/dL (0.8-1.3) L 11/22/21 10:26 Estimated GFR > 60 ml/min 11/22/21 10:26 BUN/Creatinine Ratio 29 % 11/22/21 10:26 Glucose 90 mg/dL (75-100) 11/22/21 10:26 POC Glucose 85 mg/dL (70-105) 11/22/21 16:38 Calcium 9.5 mg/dL (8.4-10.2) 11/22/21 10:26 Magnesium 2.40 mg/dL (1.7-2.3) H 11/22/21 10:26 Total Bilirubin 0.30 mg/dL (0.1-1.2) 11/22/21 10:26 AST 39 units/L (5-40) 11/22/21 10:26 ALT 19 units/L (7-56) 11/22/21 10:26 Alkaline Phosphatase 67 units/L (35-129) 11/22/21 10:26 Total Creatine Kinase 58 units/L (55-170) 11/22/21 10:26 Troponin T < 0.010 ng/mL (0.00-0.029) 11/22/21 14:32 NT-Pro-B Natriuret Pep 57.40 pg/mL (0-900) 11/22/21 14:32 Total Protein 7.6 g/dL (6.3-8.2) 11/22/21 10:26 Albumin 3.9 g/dL (3.9-5) 11/22/21 10:26 Albumin/Globulin Ratio 1.1 % 11/22/21 10:26 Calvillo/IV: Voiding Method Toilet Active Medications - Current Medications Current Medications: Generic Name Dose Route Start Last Admin Trade Name Freq PRN Reason Stop Dose Admin Acetaminophen 650 mg 11/22/21 15:00 Acetaminophen 325 Mg Tab PO Q4H PRN Pain MILD(1-3)/Fever >100.5/PICKETT Albuterol 2.5 mg 11/22/21 16:00 Albuterol 2.5 Mg/3 Ml Nebu IH Q4HRT PRN Shortness Of Breath Donepezil HCl 5 mg 11/22/21 22:00 11/22/21 21:06 Donepezil 5 Mg Tab PO 5 mg HS KARUNA Administration Famotidine 20 mg 11/22/21 22:00 11/23/21 08:48 Famotidine 20 Mg Tab PO 20 mg BID KARUNA Administration Meclizine HCl 12.5 mg 11/22/21 15:00 Meclizine 12.5 Mg Tab PO DAILY PRN Vertigo Meloxicam 7.5 mg 11/23/21 10:00 11/23/21 08:48 Meloxicam 7.5 Mg Tab PO 7.5 mg QDAY KARUNA Administration Montelukast Sodium 10 mg 11/22/21 18:00 Montelukast 10 Mg Tab PO QPM KARUNA Morphine Sulfate 2 mg 11/22/21 14:17 Morphine 2 Mg/1 Ml Inj IV Q4H PRN Pain, Moderate (4-6) Nitroglycerin 0.4 mg 11/22/21 10:22 Nitroglycerin 0.4 Mg Tab Subl SL .Q5MIN PRN Chest Pain Ondansetron HCl 4 mg 11/22/21 14:17 Ondansetron 4 Mg/2 Ml Inj IV Q8H PRN Nausea And Vomiting Oxycodone/Acetaminophen 1 tab 11/22/21 14:17 Oxycodone /Acetaminophen 5-325mg Tab PO Q16H PRN Pain, Moderate (4-6) Pravastatin Sodium 40 mg 11/22/21 22:00 11/22/21 21:07 Pravastatin 40 Mg Tab PO 40 mg QHS KARUNA Administration Sodium Chloride 10 ml 11/22/21 22:00 11/23/21 08:51 Sodium Chloride 0.9% 10 Ml Flush Syringe IV 10 ml BID KARUNA Administration Sodium Chloride 10 ml 11/22/21 14:17 Sodium Chloride 0.9% 10 Ml Flush Syringe IV PRN PRN LINE FLUSH Tamsulosin HCl 0.4 mg 11/23/21 10:00 11/23/21 08:49 Tamsulosin 0.4 Mg Cap PO 0.4 mg QDAY KARUNA Administration
[2021-11-23] MEDS: MONTELUKAST 10 MG TAB PO SCH ×2 (17:30→19:27)
[2021-11-23] MEDS: DONEPEZIL 5 MG TAB PO SCH (21:55)
[2021-11-23] MEDS: PRAVASTATIN 40 MG TAB PO SCH (21:56)
--- NOTE | 2021-11-24 08:43 | Electrocardiograph Report ---
[facility] Test Date: 2021-11-22 Test Time: 09:50:28 Pat Name: SANTOS RAYMOND Department: Room: A468 1 Gender: M Optician Manager: MACIE : 1940 Requested By: NICOLÁS NAJERA Order Number: [id number] Reading MD: Norm Cronin Measurements Intervals [place] Rate: 79 P: 79 PA: 191 QRS: 88 QRSD: 97 T: 58 QT: 365 QTc: 418 Interpretive Statements Sinus rhythm RAD Compared to ECG 02/23/2021 12:26:55 NSST'S Aberrant conduction of supraventricular beat(s) no longer present Electronically Signed On 11-24-2021 8:42:55 EDT by Norm Cronin
--- NOTE | 2021-11-24 09:05 | Electrocardiograph Report ---
[facility] Test Date: 2021-11-23 Test Time: 08:19:18 Pat Name: SANTOS RAYMOND Department: Room: A468 1 Gender: M Electronic Security Technician: KARINA : 1940 Requested By: NICOLÁS PEÑA Order Number: [id number] Reading MD: Norm Cronin Measurements Intervals [place] Rate: 66 P: 77 WI: 185 QRS: 81 QRSD: 92 T: 71 QT: 403 QTc: 421 Interpretive Statements Sinus rhythm PRWP NSST'S Compared to ECG 11/22/2021 09:50:28 Myocardial infarct finding no longer present Electronically Signed On 11-24-2021 9:05:11 EDT by Norm Cronin
[2021-11-24] MEDS: TAMSULOSIN 0.4 MG CAP PO SCH (09:29)
[2021-11-24] MEDS: FAMOTIDINE 20 MG TAB PO SCH ×2 (09:29→21:35)
[2021-11-24] MEDS: MELOXICAM 7.5 MG TAB PO SCH (09:55)
--- NOTE | 2021-11-24 11:14 | Progress Note ---
Assessment and Plan Patient 81-year-old with a past medical history of dementia, asthma/COPD, hypertension, Parkinson's disease, diabetes who was brought to the hospital for complaint of chest pain which started the morning of admission Chest pain Elevated D-dimer-CT negative for PE Hypertension Asthma/COPD Dementia Parkinson's disease Diabetes History of liver abscesses Plan: Echocardiogram reviewed Stress MPI in a.m. - Patient Problems (1) BPH (benign prostatic hyperplasia) Current Visit: Yes Status: Acute Qualifiers: Lower urinary tract symptom detail: unspecified (2) Cerebral atherosclerosis Current Visit: Yes Status: Acute (3) Diabetes Current Visit: Yes Status: Acute (4) Diastolic CHF Current Visit: Yes Status: Acute Qualifiers: Heart failure chronicity: acute Qualified Code(s): I50.31 - Acute diastolic (congestive) heart failure (5) GERD (gastroesophageal reflux disease) Current Visit: Yes Status: Acute Qualifiers: Esophagitis presence: without esophagitis Qualified Code(s): K21.9 - Gastro-esophageal reflux disease without esophagitis (6) Vascular dementia Current Visit: Yes Status: Acute Qualifiers: Dementia behavioral disturbance: without behavioral disturbance Qualified Code(s): F01.50 - Vascular dementia without behavioral disturbance (7) COPD with acute exacerbation Current Visit: No Status: Acute (8) Diabetes Current Visit: No Status: Acute Subjective Interval history: No complaints today. Objective Vital Signs Temp Pulse Resp BP Pulse Ox 11/24/21 08:37 98.0 F 75 16 108/68 98 11/24/21 04:00 61 11/24/21 03:15 97.2 F L 72 12 99/54 96 11/24/21 00:00 97.8 F 65 12 117/59 96 11/23/21 22:00 96 11/23/21 20:00 89 11/23/21 19:49 97.6 F 73 19 112/61 97 11/23/21 15:52 98.2 F 71 16 117/64 97 - Physical Examination HEENT: Positive: Normocephaly Neuro: Positive: Grossly Intact Abdomen: Positive: Soft Skin: Negative: Rash, Suspicious Lesions, Ulceration Extremities: Present: upper extr. pulses. Absent: edema - Imaging and Cardiology Echo: pending - EKG Sinus rhythms and dysrhythmias: sinus rhythm Repolarization changes or abnormalities: nonspecific abnormality, ST segment, and/or T wave
--- NOTE | 2021-11-24 12:00 | Progress Note ---
Assessment and Plan Assessment and plan: 81-year-old male with past medical history of dementia, asthma/COPD, hypertension, Parkinson's disease and diabetes mellitus type 2 who presented through the emergency department with chief complaint of chest pain Chest pain Elevated D-dimer. CT negative for PE Hypertension Asthma/COPD Dementia Parkinson's disease Diabetes mellitus type 2 History of liver abscess 11/23/2021. Follow-up CMP and echocardiogram. Cardiac isoenzymes have been unremarkable. We will continue per cardiology recommendations. 11/24/2021. Echocardiogram reveals left ventricular systolic function which is normal and EF of 60 to 65%. Cardiology plans for stress test in a.m. History Interval history: No new issues overnight Hospitalist Physical - Constitutional Vitals: Temp Pulse Resp BP Pulse Ox 97.9 F 74 16 115/68 97 11/24/21 11:37 11/24/21 11:37 11/24/21 11:37 11/24/21 11:37 11/24/21 11:37 General appearance: Present: mild distress - EENT Eyes: Present: PERRL, EOM intact ENT: hearing intact, clear oral mucosa, dentition normal - Neck Neck: Present: supple, normal ROM - Respiratory Respiratory effort: normal Respiratory: bilateral: CTA - Cardiovascular Rhythm: regular Heart Sounds: Present: S1 & S2. Absent: gallop, rub - Extremities Extremities: no ischemia, No edema, Full ROM - Abdominal General gastrointestinal: soft, non-tender, non-distended, normal bowel sounds - Integumentary Integumentary: Present: clear, warm, dry - Neurologic Neurologic: CNII-XII intact, moves all extremities HEART Score - HEART Score EKG: Non-specific Age: > 65 Risk factors: > 3 risk factors or hx of atherosclerotic disease Troponin: Troponin T < 0.010 ng/mL (0.00-0.029) 11/22/21 14:32 Troponin: < normal limit - Critical Actions Critical Actions: 4-6 pts:12-16.6% risk of adverse cardiac event. Should be admitted Results - Labs CBC & Chem 7: 11/22/21 10:26 11/22/21 10:26 Labs: Laboratory Last Values WBC 6.9 K/mm3 (4.5-11.0) 11/22/21 10:26 RBC 4.31 M/mm3 (3.65-5.03) 11/22/21 10:26 Hgb 12.8 gm/dl (11.8-15.2) 11/22/21 10: Hct 38.3 % (35.5-45.6) 11/22/21 10: MCV 89 fl (84-94) 11/22/21 10:26 MCH 30 pg (28-32) 11/22/21 10: MCHC 33 % (32-34) 11/22/21 10: RDW 15.3 % (13.2-15.2) H 11/22/21 10:26 Plt Count 212 K/mm3 (140-440) 11/22/21 10:26 Lymph % (Auto) 19.0 % (13.4-35.0) 11/22/21 10: [place] % (Auto) 7.1 % (0.0-7.3) 11/22/21 10: Eos % (Auto) 15.0 % (0.0-4.3) H 11/22/21 10: Baso % (Auto) 0.4 % (0.0-1.8) 11/22/21 10: Lymph # (Auto) 1.3 K/mm3 (1.2-5.4) 11/22/21 10: [place] # (Auto) 0.5 K/mm3 (0.0-0.8) 11/22/21 10: Eos # (Auto) 1.0 K/mm3 (0.0-0.4) H 11/22/21 10: Baso # (Auto) 0.0 K/mm3 (0.0-0.1) 11/22/21 10: Seg Neutrophils % 58.5 % (40.0-70.0) 11/22/21 10: Seg Neutrophils # 4.1 K/mm3 (1.8-7.7) 11/22/21 10: PT 12.7 Sec. (12.2-14.9) 11/22/21 10: INR 0.87 (0.87-1.13) 11/22/21 10: D-Dimer 899.85 ng/mlDDU (0-234) H 11/22/21 10: Sodium 131 mmol/L (137-145) L 11/22/21 10:26 Potassium 5.7 mmol/L (3.6-5.0) H 11/22/21 10:26 Chloride 99.6 mmol/L (98-107) 11/22/21 10:26 Carbon Dioxide 21 mmol/L (22-30) L 11/22/21 10:26 Anion Gap 16 mmol/L 11/22/21 10:26 BUN 20 mg/dL (9-20) 11/22/21 10:26 Creatinine 0.7 mg/dL (0.8-1.3) L 11/22/21 10:26 Estimated GFR > 60 ml/min 11/22/21 10:26 BUN/Creatinine Ratio 29 % 11/22/21 10:26 Glucose 90 mg/dL (75-100) 11/22/21 10:26 POC Glucose 102 mg/dL (70-105) 11/24/21 08:35 Calcium 9.5 mg/dL (8.4-10.2) 11/22/21 10:26 Magnesium 2.40 mg/dL (1.7-2.3) H 11/22/21 10:26 Total Bilirubin 0.30 mg/dL (0.1-1.2) 11/22/21 10:26 AST 39 units/L (5-40) 11/22/21 10:26 ALT 19 units/L (7-56) 11/22/21 10:26 Alkaline Phosphatase 67 units/L (35-129) 11/22/21 10:26 Total Creatine Kinase 58 units/L (55-170) 11/22/21 10:26 Troponin T < 0.010 ng/mL (0.00-0.029) 11/22/21 14:32 NT-Pro-B Natriuret Pep 57.40 pg/mL (0-900) 11/22/21 14:32 Total Protein 7.6 g/dL (6.3-8.2) 11/22/21 10:26 Albumin 3.9 g/dL (3.9-5) 11/22/21 10:26 Albumin/Globulin Ratio 1.1 % 11/22/21 10:26 Calvillo/IV: Voiding Method Toilet Active Medications - Current Medications Current Medications: Generic Name Dose Route Start Last Admin Trade Name Freq PRN Reason Stop Dose Admin Acetaminophen 650 mg 11/22/21 15:00 Acetaminophen 325 Mg Tab PO Q4H PRN Pain MILD(1-3)/Fever >100.5/PICKETT Albuterol 2.5 mg 11/22/21 16:00 Albuterol 2.5 Mg/3 Ml Nebu IH Q4HRT PRN Shortness Of Breath Aspirin 325 mg 11/24/21 12:00 Aspirin 325 Mg Tab PO QDAY KARUNA Donepezil HCl 5 mg 11/22/21 22:00 11/23/21 21:55 Donepezil 5 Mg Tab PO 5 mg HS KARUNA Administration Famotidine 20 mg 11/22/21 22:00 11/24/21 09:29 Famotidine 20 Mg Tab PO 20 mg BID KARUNA Administration Meclizine HCl 12.5 mg 11/22/21 15:00 Meclizine 12.5 Mg Tab PO DAILY PRN Vertigo Meloxicam 7.5 mg 11/23/21 10:00 11/24/21 09:55 Meloxicam 7.5 Mg Tab PO 7.5 mg QDAY KARUNA Administration Montelukast Sodium 10 mg 11/22/21 18:00 11/23/21 19:27 Montelukast 10 Mg Tab PO Not Given QPM KARUNA Morphine Sulfate 2 mg 11/22/21 14:17 Morphine 2 Mg/1 Ml Inj IV Q4H PRN Pain, Moderate (4-6) Nitroglycerin 0.4 mg 11/22/21 10:22 Nitroglycerin 0.4 Mg Tab Subl SL .Q5MIN PRN Chest Pain Ondansetron HCl 4 mg 11/22/21 14:17 Ondansetron 4 Mg/2 Ml Inj IV Q8H PRN Nausea And Vomiting Oxycodone/Acetaminophen 1 tab 11/22/21 14:17 Oxycodone /Acetaminophen 5-325mg Tab PO Q16H PRN Pain, Moderate (4-6) Pravastatin Sodium 40 mg 11/22/21 22:00 11/23/21 21:56 Pravastatin 40 Mg Tab PO 40 mg QHS KARUNA Administration Sodium Chloride 10 ml 11/22/21 22:00 11/24/21 09:29 Sodium Chloride 0.9% 10 Ml Flush Syringe IV 10 ml BID KARUNA Administration Sodium Chloride 10 ml 11/22/21 14:17 Sodium Chloride 0.9% 10 Ml Flush Syringe IV PRN PRN LINE FLUSH Tamsulosin HCl 0.4 mg 11/23/21 10:00 11/24/21 09:29 Tamsulosin 0.4 Mg Cap PO 0.4 mg QDAY KARUNA Administration
[2021-11-24] MEDS: ASPIRIN 325 MG TAB PO SCH (12:21)
--- NOTE | 2021-11-24 15:24 | Electrocardiograph Report ---
[facility] Test Date: 2021-11-24 Test Time: 08:02:26 Pat Name: SANTOS RAYMOND Department: Room: A468 1 Gender: M Client Program Manager: KARINA : 1940 Requested By: NICOLÁS NAJERA Order Number: [id number] Reading MD: Norm Cronin Measurements Intervals [place] Rate: 70 P: 79 DC: 182 QRS: 82 QRSD: 102 T: 76 QT: 393 QTc: 425 Interpretive Statements Sinus rhythm ST elevation, consider inferior injury vs PERICARDITIS Compared to ECG 11/23/2021 08:19:18 NO CHANGE Electronically Signed On 11-24-2021 15:24:07 EDT by Norm Cronin
[2021-11-24] MEDS: MONTELUKAST 10 MG TAB PO SCH (18:12)
[2021-11-24] MEDS: PRAVASTATIN 40 MG TAB PO SCH (21:35)
[2021-11-24] MEDS: DONEPEZIL 5 MG TAB PO SCH (21:35)
[2021-11-25] MEDS ORDERED: REGADENOSON 0.4 MG/5 ML INJ IV ONE (07:44)
[2021-11-25] MEDS: TAMSULOSIN 0.4 MG CAP PO SCH (10:51)
[2021-11-25] MEDS: MELOXICAM 7.5 MG TAB PO SCH (10:51)
[2021-11-25] MEDS: ASPIRIN 325 MG TAB PO SCH (10:51)
[2021-11-25] MEDS: FAMOTIDINE 20 MG TAB PO SCH ×2 (10:51→22:52)
--- NOTE | 2021-11-25 11:01 | Nuclear Medicine Report ---
APPROVED REPORT Exam: Nuclear Stress Test Indication: Chest pain BMI: 0 Stress Test Details HR Max Heart Rate (APMHR): 139 bpm Target HR (85% APMHR): 118 bpm BP ECG Resting ECG: Sinus Rhythm,65 bpm,wnl.(early repolarization changes noted). Stress ECG: Sinus Rhythm. ST Change: None Arrhythmia: None Recovery ECG: Sinus Rhythm Recovery ST Change: None Recovery Arrhythmia: None Clinical Reason for Termination: Completed protocol Stress Symptoms: None NM EXAM: Myocardial Perfusion REST/STRESS Imaging Protocol: Rest Tc-99m/Stress Tc-99m 1 day Resting Data Rest SPECT myocardial perfusion imaging was performed in supine position 45 minutes following the intravenous injection of 10 mCi of Tc-99m Myoview. Time of rest injection: 0700 Date: 11/25/2021 Pharmacologic Stress Pharmacologic stress test was performed by injecting Regadenoson 0.4 mg IV push followed by the intravenous injection of 28 mCi of Tc-99m Myoview. Time of stress injection: 10:06:25 Date: 11/25/2021 Gated Stress SPECT was performed 30 minutes after stress injection. The images were gated to evaluate regional wall motion and calculate left ventricular ejection fraction. Study Data TID = 0.90. Perfusion Wall Motion Normal left ventricular size and function with no regional wall motion abnormalities. Nuclear Conclusion ECG Findings: negative for ischemia Clinical Findings: negative for ischemia Nuclear Findings: negative for ischemia Exercise Capacity: not assessed Left Ventricular Function: normal Risk Study: low Normal study. No scintigraphic evidence for myocardial ischemia or scar.
--- NOTE | 2021-11-25 13:22 | Progress Note ---
Assessment and Plan Assessment and plan: 81-year-old male with past medical history of dementia, asthma/COPD, hypertension, Parkinson's disease and diabetes mellitus type 2 who presented through the emergency department with chief complaint of chest pain Chest pain Elevated D-dimer. CT negative for PE Hypertension Asthma exacerbation Dementia Parkinson's disease Diabetes mellitus type 2 History of liver abscess 11/23/2021. Follow-up CMP and echocardiogram. Cardiac isoenzymes have been unremarkable. We will continue per cardiology recommendations. 11/24/2021. Echocardiogram reveals left ventricular systolic function which is no rmal and EF of 60 to 65%. Cardiology plans for stress test in a.m. 11/25/2021. Patient still complaining of chest pain. Etiology likely secondary to acute asthma exacerbation. Patient with some wheezing on exam. We will start IV steroids and continue bronchodilators/breathing treatments. History Interval history: No new issues overnight Hospitalist Physical - Constitutional Vitals: Temp Pulse Resp BP Pulse Ox 97.9 F 97 H 18 120/72 96 11/25/21 12:33 11/25/21 12:33 11/25/21 12:33 11/25/21 12:33 11/25/21 12:33 General appearance: Present: no acute distress - EENT Eyes: Present: PERRL, EOM intact ENT: hearing intact, clear oral mucosa, dentition normal - Neck Neck: Present: supple, normal ROM - Respiratory Respiratory effort: normal Respiratory: bilateral: CTA - Cardiovascular Rhythm: regular Heart Sounds: Present: S1 & S2. Absent: gallop, rub - Extremities Extremities: no ischemia, No edema, Full ROM - Abdominal General gastrointestinal: soft, non-tender, non-distended, normal bowel sounds - Integumentary Integumentary: Present: clear, warm, dry - Neurologic Neurologic: CNII-XII intact, moves all extremities HEART Score - HEART Score EKG: Non-specific Age: > 65 Risk factors: > 3 risk factors or hx of atherosclerotic disease Troponin: Troponin T < 0.010 ng/mL (0.00-0.029) 11/22/21 14:32 Troponin: < normal limit - Critical Actions Critical Actions: 4-6 pts:12-16.6% risk of adverse cardiac event. Should be ad mitted Results - Labs CBC & Chem 7: 11/22/21 10:26 11/22/21 10:26 Labs: Laboratory Last Values WBC 6.9 K/mm3 (4.5-11.0) 11/22/21 10: RBC 4.31 M/mm3 (3.65-5.03) 11/22/21 10:26 Hgb 12.8 gm/dl (11.8-15.2) 11/22/21 10:26 Hct 38.3 % (35.5-45.6) 11/22/21 10: MCV 89 fl (84-94) 11/22/21 10:26 MCH 30 pg (28-32) 11/22/21 10: MCHC 33 % (32-34) 11/22/21 10: RDW 15.3 % (13.2-15.2) H 11/22/21 10: Plt Count 212 K/mm3 (140-440) 11/22/21 10: Lymph % (Auto) 19.0 % (13.4-35.0) 11/22/21 10:26 Steele % (Auto) 7.1 % (0.0-7.3) 11/22/21 10:26 Eos % (Auto) 15.0 % (0.0-4.3) H 11/22/21 10: Baso % (Auto) 0.4 % (0.0-1.8) 11/22/21 10: Lymph # (Auto) 1.3 K/mm3 (1.2-5.4) 11/22/21 10:26 Steele # (Auto) 0.5 K/mm3 (0.0-0.8) 11/22/21 10:26 Eos # (Auto) 1.0 K/mm3 (0.0-0.4) H 11/22/21 10:26 Baso # (Auto) 0.0 K/mm3 (0.0-0.1) 11/22/21 10:26 Seg Neutrophils % 58.5 % (40.0-70.0) 11/22/21 10: Seg Neutrophils # 4.1 K/mm3 (1.8-7.7) 11/22/21 10:26 PT 12.7 Sec. (12.2-14.9) 11/22/21 10:26 INR 0.87 (0.87-1.13) 11/22/21 10:26 D-Dimer 899.85 ng/mlDDU (0-234) H 11/22/21 10:26 Sodium 131 mmol/L (137-145) L 11/22/21 10:26 Potassium 5.7 mmol/L (3.6-5.0) H 11/22/21 10:26 Chloride 99.6 mmol/L (98-107) 11/22/21 10:26 Carbon Dioxide 21 mmol/L (22-30) L 11/22/21 10:26 Anion Gap 16 mmol/L 11/22/21 10:26 BUN 20 mg/dL (9-20) 11/22/21 10:26 Creatinine 0.7 mg/dL (0.8-1.3) L 11/22/21 10:26 Estimated GFR > 60 ml/min 11/22/21 10:26 BUN/Creatinine Ratio 29 % 11/22/21 10:26 Glucose 90 mg/dL (75-100) 11/22/21 10:26 POC Glucose 97 mg/dL (70-105) 11/24/21 22:24 Calcium 9.5 mg/dL (8.4-10.2) 11/22/21 10:26 Magnesium 2.40 mg/dL (1.7-2.3) H 11/22/21 10:26 Total Bilirubin 0.30 mg/dL (0.1-1.2) 11/22/21 10:26 AST 39 units/L (5-40) 11/22/21 10:26 ALT 19 units/L (7-56) 11/22/21 10:26 Alkaline Phosphatase 67 units/L (35-129) 11/22/21 10:26 Total Creatine Kinase 58 units/L (55-170) 11/22/21 10:26 Troponin T < 0.010 ng/mL (0.00-0.029) 11/22/21 14:32 NT-Pro-B Natriuret Pep 57.40 pg/mL (0-900) 11/22/21 14:32 Total Protein 7.6 g/dL (6.3-8.2) 11/22/21 10:26 Albumin 3.9 g/dL (3.9-5) 11/22/21 10:26 Albumin/Globulin Ratio 1.1 % 11/22/21 10:26 Calvillo/IV: Voiding Method Urinal Active Medications - Current Medications Current Medications: Generic Name Dose Route Start Last Admin Trade Name Freq PRN Reason Stop Dose Admin Acetaminophen 650 mg 11/22/21 15:00 Acetaminophen 325 Mg Tab PO Q4H PRN Pain MILD(1-3)/Fever >100.5/PICKETT Albuterol 2.5 mg 11/22/21 16:00 Albuterol 2.5 Mg/3 Ml Nebu IH Q4HRT PRN Shortness Of Breath Aspirin 325 mg 11/24/21 12:00 11/25/21 10:51 Aspirin 325 Mg Tab PO 325 mg QDAY KARUNA Administration Donepezil HCl 5 mg 11/22/21 22:00 11/24/21 21:35 Donepezil 5 Mg Tab PO 5 mg HS KARUNA Administration Famotidine 20 mg 11/22/21 22:00 11/25/21 10:51 Famotidine 20 Mg Tab PO 20 mg BID KARUNA Administration Meclizine HCl 12.5 mg 11/22/21 15:00 Meclizine 12.5 Mg Tab PO DAILY PRN Vertigo Meloxicam 7.5 mg 11/23/21 10:00 11/25/21 10:51 Meloxicam 7.5 Mg Tab PO 7.5 mg QDAY KARUNA Administration Montelukast Sodium 10 mg 11/22/21 18:00 11/24/21 18:12 Montelukast 10 Mg Tab PO 10 mg QPM KARUNA Administration Morphine Sulfate 2 mg 11/22/21 14:17 Morphine 2 Mg/1 Ml Inj IV Q4H PRN Pain, Moderate (4-6) Nitroglycerin 0.4 mg 11/22/21 10:22 Nitroglycerin 0.4 Mg Tab Subl SL .Q5MIN PRN Chest Pain Ondansetron HCl 4 mg 11/22/21 14:17 Ondansetron 4 Mg/2 Ml Inj IV Q8H PRN Nausea And Vomiting Oxycodone/Acetaminophen 1 tab 11/22/21 14:17 Oxycodone /Acetaminophen 5-325mg Tab PO Q16H PRN Pain, Moderate (4-6) Pravastatin Sodium 40 mg 11/22/21 22:00 11/24/21 21:35 Pravastatin 40 Mg Tab PO 40 mg QHS KARUNA Administration Sodium Chloride 10 ml 11/22/21 22:00 11/25/21 10:52 Sodium Chloride 0.9% 10 Ml Flush Syringe IV Not Given BID KARUNA Sodium Chloride 10 ml 11/22/21 14:17 Sodium Chloride 0.9% 10 Ml Flush Syringe IV PRN PRN LINE FLUSH Tamsulosin HCl 0.4 mg 11/23/21 10:00 11/25/21 10:51 Tamsulosin 0.4 Mg Cap PO 0.4 mg QDAY KARUNA Administration
[2021-11-25] MEDS: methylPREDNISolone Sod Succinate 40 MG/1 ML INJ IV SCH ×2 (13:46→22:52)
--- NOTE | 2021-11-25 15:59 | Progress Note ---
Assessment and Plan Patient 81-year-old with a past medical history of dementia, asthma/COPD, hypertension, Parkinson's disease, diabetes who was brought to the hospital for complaint of chest pain which started the morning of admission Chest pain Elevated D-dimer-CT negative for PE Hypertension Asthma/COPD Dementia Parkinson's disease Diabetes History of liver abscesses Cardiographics: 11/24/21 echocardiogram: Technically very difficult study due to poor acoustic windows. LV: The left ventricular systolic function is normal. The left ventricular ejection fraction is within normal range. LVEF is 60-65%. Aortic Valve: Aortic valve is calcified however cannot analyze further due to suboptimal imaging. Pericardium there is no pericardial effusion Nuclear MPI Stress Test- 11/25/2021: Nuclear MPI findings: Negative for ischemia low risk study. No skin to graphic evidence for myocardial ischemia or scar. Plan: Echocardiogram as above Stress MPI negative for acute ischemia. Troponin negative x3 sets. Electrolytes acceptable at this point Patient is stable from cardiac standpoint. Patient seen in conjunction with Dr. Jose who agrees with the assessment and management of this patient. - Patient Problems (1) Acute chest pain Current Visit: Yes Status: Acute (2) Diabetes Current Visit: Yes Status: Acute (3) GERD (gastroesophageal reflux disease) Current Visit: Yes Status: Acute Qualifiers: Esophagitis presence: without esophagitis Qualified Code(s): K21.9 - Gastro-esophageal reflux disease without esophagitis (4) Vascular dementia Current Visit: Yes Status: Acute Qualifiers: Dementia behavioral disturbance: without behavioral disturbance Qualified Code(s): F01.50 - Vascular dementia without behavioral disturbance (5) Diabetes Current Visit: No Status: Acute Subjective Date of service: 11/25/21 Principal diagnosis: Chest Pain Interval history: Patient seen in hospital today. No acute distress Intake & Output 11/22/21 11/23/21 11/24/21 11/25/21 23:59 23:59 23:59 23:59 Intake Total 240 800 740 0 Output Total 200 800 Balance 40 0 740 0 Weight 65 kg Objective Vital Signs Temp Pulse Resp BP BP Pulse Ox 11/25/21 15:37 982 F H 70 116/61 11/25/21 12:33 97.9 F 97 H 18 120/72 96 11/25/21 09:51 109/63 11/25/21 09:50 118/65 11/25/21 09:49 118/59 11/25/21 09:46 129/71 11/25/21 09:43 124/60 11/25/21 08:40 129/66 11/25/21 08:33 137/70 11/25/21 07:48 73 11/25/21 07:18 96 11/25/21 06:05 97.8 F 75 16 121/72 96 11/25/21 01:23 98.0 F 67 30 H 118/70 96 11/25/21 01:20 98.0 F 69 32 H 118/70 96 11/25/21 00:43 96 11/24/21 21:31 98.4 F 74 20 111/64 95 11/24/21 16:35 97.9 F 73 16 124/62 98 - Physical Examination General: No Apparent Distress HEENT: Positive: Normocephaly Neck: Positive: neck supple Cardiac: Positive: Reg Rate and Rhythm, S1/S2 Lungs: Positive: clear to auscultation Neuro: Positive: Grossly Intact Abdomen: Positive: Soft Skin: Negative: Rash Extremities: Present: upper extr. pulses. Absent: edema - Imaging and Cardiology EKG: report reviewed Nuclear stress test: report reviewed Echo: report reviewed - Telemetry EKG Rhythm: Sinus Rhythm - EKG Sinus rhythms and dysrhythmias: sinus rhythm Repolarization changes or abnormalities: nonspecific abnormality, ST segment, and/or T wave - Allied health notes Allied health notes reviewed: nursing
[2021-11-25] MEDS: MONTELUKAST 10 MG TAB PO SCH (17:43)
[2021-11-25] MEDS: DONEPEZIL 5 MG TAB PO SCH (22:52)
[2021-11-25] MEDS: PRAVASTATIN 40 MG TAB PO SCH (22:52)
[2021-11-26] MEDS: methylPREDNISolone Sod Succinate 40 MG/1 ML INJ IV SCH (05:47)
--- NOTE | 2021-11-26 08:30 | Progress Note ---
Assessment and Plan Assessment and plan: HPI: The patient is an 81-year-old gentleman presenting to the ER today with c omplaints of sudden central chest pain. The chest pain does not radiate to the back, arms or neck. He denies vomiting and diaphoresis. He has chronic shortness of breath. Denies leg pain or leg swelling. Believes that he was admitted to [facility] last month for 19 days. He is uncertain why. His chest pain is improved with aspirin and nitroglycerin, administered by EMS. He denies hematemesis and bright red blood per rectum. Hospital Course: 11/23/2021. Follow-up CMP and echocardiogram. Cardiac isoenzymes have been unremarkable. We will continue per cardiology recommendations. 11/24/2021. Echocardiogram reveals left ventricular systolic function which is normal and EF of 60 to 65%. Cardiology plans for stress test in a.m. 11/25/2021. Patient still complaining of chest pain. Etiology likely secondary to acute asthma exacerbation. Patient with some wheezing on exam. We will start IV steroids and continue bronchodilators/breathing treatments. Assessment and Plan: Chest pain Elevated D-dimer. CT negative for PE Hypertension Asthma exacerbation Dementia Parkinson's disease Diabetes mellitus type 2 History of liver abscess Hospitalist Physical - Constitutional Vitals: Temp Pulse Resp BP Pulse Ox 97.5 F L 67 14 115/62 95 11/26/21 08:02 11/26/21 08:02 11/26/21 08:02 11/26/21 08:02 11/26/21 08:02 General appearance: Present: no acute distress HEART Score - HEART Score EKG: Non-specific Age: > 65 Risk factors: > 3 risk factors or hx of atherosclerotic disease Troponin: Troponin T < 0.010 ng/mL (0.00-0.029) 11/22/21 14:32 Troponin: < normal limit - Critical Actions Critical Actions: 4-6 pts:12-16.6% risk of adverse cardiac event. Should be admitted Results - Labs CBC & Chem 7: 11/22/21 10:26 11/22/21 10:26 Labs: Laboratory Last Values WBC 6.9 K/mm3 (4.5-11.0) 11/22/21 10:26 RBC 4.31 M/mm3 (3.65-5.03) 11/22/21 10:26 Hgb 12.8 gm/dl (11.8-15.2) 11/22/21 10: Hct 38.3 % (35.5-45.6) 11/22/21 10: MCV 89 fl (84-94) 11/22/21 10:26 MCH 30 pg (28-32) 11/22/21 10: MCHC 33 % (32-34) 11/22/21 10:26 RDW 15.3 % (13.2-15.2) H 11/22/21 10:26 Plt Count 212 K/mm3 (140-440) 11/22/21 10:26 Lymph % (Auto) 19.0 % (13.4-35.0) 11/22/21 10:26 Sac % (Auto) 7.1 % (0.0-7.3) 11/22/21 10: Eos % (Auto) 15.0 % (0.0-4.3) H 11/22/21 10: Baso % (Auto) 0.4 % (0.0-1.8) 11/22/21 10:26 Lymph # (Auto) 1.3 K/mm3 (1.2-5.4) 11/22/21 10: Sac # (Auto) 0.5 K/mm3 (0.0-0.8) 11/22/21 10: Eos # (Auto) 1.0 K/mm3 (0.0-0.4) H 11/22/21 10: Baso # (Auto) 0.0 K/mm3 (0.0-0.1) 11/22/21 10:26 Seg Neutrophils % 58.5 % (40.0-70.0) 11/22/21 10: Seg Neutrophils # 4.1 K/mm3 (1.8-7.7) 11/22/21 10: PT 12.7 Sec. (12.2-14.9) 11/22/21 10: INR 0.87 (0.87-1.13) 11/22/21 10: D-Dimer 899.85 ng/mlDDU (0-234) H 11/22/21 10:26 Sodium 131 mmol/L (137-145) L 11/22/21 10:26 Potassium 5.7 mmol/L (3.6-5.0) H 11/22/21 10:26 Chloride 99.6 mmol/L (98-107) 11/22/21 10:26 Carbon Dioxide 21 mmol/L (22-30) L 11/22/21 10:26 Anion Gap 16 mmol/L 11/22/21 10:26 BUN 20 mg/dL (9-20) 11/22/21 10:26 Creatinine 0.7 mg/dL (0.8-1.3) L 11/22/21 10:26 Estimated GFR > 60 ml/min 11/22/21 10:26 BUN/Creatinine Ratio 29 % 11/22/21 10:26 Glucose 90 mg/dL (75-100) 11/22/21 10:26 POC Glucose 210 mg/dL (70-105) H 11/25/21 21:36 Calcium 9.5 mg/dL (8.4-10.2) 11/22/21 10:26 Magnesium 2.40 mg/dL (1.7-2.3) H 11/22/21 10:26 Total Bilirubin 0.30 mg/dL (0.1-1.2) 11/22/21 10:26 AST 39 units/L (5-40) 11/22/21 10:26 ALT 19 units/L (7-56) 11/22/21 10:26 Alkaline Phosphatase 67 units/L (35-129) 11/22/21 10:26 Total Creatine Kinase 58 units/L (55-170) 11/22/21 10:26 Troponin T < 0.010 ng/mL (0.00-0.029) 11/22/21 14:32 NT-Pro-B Natriuret Pep 57.40 pg/mL (0-900) 11/22/21 14:32 Total Protein 7.6 g/dL (6.3-8.2) 11/22/21 10:26 Albumin 3.9 g/dL (3.9-5) 11/22/21 10:26 Albumin/Globulin Ratio 1.1 % 11/22/21 10:26 Calvillo/IV: Voiding Method Urinal Active Medications - Current Medications Current Medications: Generic Name Dose Route Start Last Admin Trade Name Freq PRN Reason Stop Dose Admin Acetaminophen 650 mg 11/22/21 15:00 Acetaminophen 325 Mg Tab PO Q4H PRN Pain MILD(1-3)/Fever >100.5/PICKETT Albuterol 2.5 mg 11/22/21 16:00 Albuterol 2.5 Mg/3 Ml Nebu IH Q4HRT PRN Shortness Of Breath Aspirin 325 mg 11/24/21 12:00 11/25/21 10:51 Aspirin 325 Mg Tab PO 325 mg QDAY KARUNA Administration Budesonide 0.5 mg 11/26/21 08:30 Budesonide 0.5 Mg/2 Ml Nebu IH Q12HRT KARUNA Dextrose 50 ml 11/26/21 08:20 Dextrose 50% In Water (25gm) 50 Ml Syringe IV Q30MIN PRN Hypoglycemia Protocol Donepezil HCl 5 mg 11/22/21 22:00 11/25/21 22:52 Donepezil 5 Mg Tab PO 5 mg HS KARUNA Administration Famotidine 20 mg 11/22/21 22:00 11/25/21 22:52 Famotidine 20 Mg Tab PO 20 mg BID KARUNA Administration Insulin Human Lispro 0 unit 11/26/21 11:30 Insulin Lispro 100 Unit/Ml SUB-Q ACHS [facility] Protocol Meclizine HCl 12.5 mg 11/22/21 15:00 Meclizine 12.5 Mg Tab PO DAILY PRN Vertigo Meloxicam 7.5 mg 11/23/21 10:00 11/25/21 10:51 Meloxicam 7.5 Mg Tab PO 7.5 mg QDAY KARUNA Administration Methylprednisolone Sodium Succinate 40 mg 11/25/21 14:00 11/26/21 05:47 Methylprednisolone Sod Succinate 40 Mg/1 Ml Inj IV 40 mg Q8H KARUNA Administration Montelukast Sodium 10 mg 11/22/21 18:00 11/25/21 17:43 Montelukast 10 Mg Tab PO 10 mg QPM KARUNA Administration Morphine Sulfate 2 mg 11/22/21 14:17 Morphine 2 Mg/1 Ml Inj IV Q4H PRN Pain, Moderate (4-6) Nitroglycerin 0.4 mg 11/22/21 10:22 Nitroglycerin 0.4 Mg Tab Subl SL .Q5MIN PRN Chest Pain Ondansetron HCl 4 mg 11/22/21 14:17 Ondansetron 4 Mg/2 Ml Inj IV Q8H PRN Nausea And Vomiting Oxycodone/Acetaminophen 1 tab 11/22/21 14:17 Oxycodone /Acetaminophen 5-325mg Tab PO Q16H PRN Pain, Moderate (4-6) Pravastatin Sodium 40 mg 11/22/21 22:00 11/25/21 22:52 Pravastatin 40 Mg Tab PO 40 mg QHS KARUNA Administration Sodium Chloride 10 ml 11/22/21 22:00 11/25/21 22:50 Sodium Chloride 0.9% 10 Ml Flush Syringe IV 10 ml BID KARUNA Administration Sodium Chloride 10 ml 11/22/21 14:17 Sodium Chloride 0.9% 10 Ml Flush Syringe IV PRN PRN LINE FLUSH Tamsulosin HCl 0.4 mg 11/23/21 10:00 11/25/21 10:51 Tamsulosin 0.4 Mg Cap PO 0.4 mg QDAY KARUNA Administration
[2021-11-26] MEDS ORDERED: DEXTROSE 50% IN WATER (25GM) 50 ML SYRINGE IV PRN (09:00)
[2021-11-26] MEDS ORDERED: BUDESONIDE 0.5 MG/2 ML NEBU IH SCH (09:00)
[2021-11-26] MEDS: ASPIRIN 325 MG TAB PO SCH (09:47)
[2021-11-26] MEDS: MELOXICAM 7.5 MG TAB PO SCH (09:47)
[2021-11-26] MEDS: TAMSULOSIN 0.4 MG CAP PO SCH (09:47)
[2021-11-26] MEDS: FAMOTIDINE 20 MG TAB PO SCH (09:47)
[2021-11-26] MEDS ORDERED: INSULIN LISPRO 100 UNIT/ML SUB-Q SCH (11:30)
--- NOTE | 2021-11-26 11:33 | Discharge Summary ---
Providers - Providers Date of Admission: 11/22/21 14:17 Date of discharge: 11/26/21 Attending physician: SUSAN BENITES MD 11/22/21 11:57 Consult to Physician [CONS] Urgent Comment: Consulting Provider: JOVAN ARANA Physician Instructions: Reason For Exam: acute cp Primary care physician: [facility] Hospitalization Reason for admission: shortness of breath/chest pain Condition: Stable Hospital course: HPI: The patient is an 81-year-old gentleman presenting to the ER today with complaints of sudden central chest pain. The chest pain does not radiate to the back, arms or neck. He denies vomiting and diaphoresis. He has chronic shortness of breath. Denies leg pain or leg swelling. Believes that he was admitted to [facility] last month for 19 days. He is uncertain why. His chest pain is improved with aspirin and nitroglycerin, administered by EMS. He denies hematemesis and bright red blood per rectum. Hospital Course: 11/23/2021. Follow-up CMP and echocardiogram. Cardiac isoenzymes have been unremarkable. We will continue per cardiology recommendations. 11/24/2021. Echocardiogram reveals left ventricular systolic function which is normal and EF of 60 to 65%. Cardiology plans for stress test in a.m. 11/25/2021. Patient still complaining of chest pain. Etiology likely secondary to acute asthma exacerbation. Patient with some wheezing on exam. We will start IV steroids and continue bronchodilators/breathing treatments. 11/26: no complaints this AM. Breathing improved, currently on room air. No further workup by cardiology. stress negative. Recommend outpatient follow up with cardiology. Assessment and Plan: Chest pain Elevated D-dimer. CT negative for PE Hypertension Asthma exacerbation Dementia Parkinson's disease Diabetes mellitus type 2 History of liver abscess Disposition: HOME / SELF CARE / HOMELESS Final Discharge Diagnosis (Prints w/discharge instructions): asthma exacerbation Time spent for discharge: 35 Core Measure Documentation - Palliative Care Palliative Care/ Comfort Measures: Not Applicable - Core Measures Any of the following diagnoses?: none Exam - Physical Exam Narrative exam: Physical Exam: VITAL SIGNS: Reviewed. GENERAL: The patient appears normally developed, Vital signs as documented. HEAD: No signs of head trauma. EYES: Pupils are equal. Extraocular motions intact. EARS: Hearing grossly intact. MOUTH: Oropharynx is normal. NECK: No adenopathy, no JVD. CHEST: Chest with clear breath sounds bilaterally. No wheezes, rales, or rhonchi. CARDIAC: Regular rate and rhythm. S1 and S2, without murmurs, gallops, or rubs. VASCULAR: No Edema. Peripheral pulses normal and equal in all extremities. ABDOMEN: Soft, non tender and non distended. No rebound or guarding, and no masses palpated. Bowel Sounds normal. MUSCULOSKELETAL: Good range of motion of all major joints. Extremities without clubbing, cyanosis or edema. NEUROLOGIC EXAM: Alert and oriented x 4. no focal sensory or strength deficits. PSYCHIATRIC: Mood normal. SKIN: detail exam as documented in skin assessment - Constitutional Vitals: Temp Pulse Resp BP Pulse Ox 97.5 F L 82 18 115/62 95 11/26/21 08:02 11/26/21 09:55 11/26/21 09:55 11/26/21 08:02 11/26/21 08:02 Plan Activity: no restrictions Weight Bearing Status: Full Weight Bearing Diet: low fat, low cholesterol, low salt, diabetic Follow up with: PRIMARY CARE,MD [Primary Care Provider] - 3-5 Days Prescriptions: predniSONE [Deltasone] 40 mg PO QDAY 4 Days #4 tab Tamsulosin [Flomax] 0.4 mg PO QDAY 30 Days #30 capsule Aspirin EC [Halfprin EC] 81 mg PO QDAY 30 Days #30 tab Albuterol Mdi (or & Nicu Only) [ProAir HFA Inhaler] 1 puff IH Q4HR PRN 30 Days #1 pump PRN Reason: Shortness Of Breath Budesonide [Pulmicort Flexhaler] 90 mcg IH BID 30 Days #1 pump Montelukast [Singulair] 10 mg PO QPM 30 Days #30 tab
[2021-11-26 12:23] VITALS: BP 119/65
--- NOTE | 2021-11-26 14:06 | Progress Note ---
Assessment and Plan Patient 81-year-old with a past medical history of dementia, asthma/COPD, hypertension, Parkinson's disease, diabetes who was brought to the hospital for complaint of chest pain which started the morning of admission Chest pain Elevated D-dimer-CT negative for PE Hypertension Asthma/COPD Dementia Parkinson's disease Diabetes History of liver abscesses Cardiographics: 11/24/21 echocardiogram: Technically very difficult study due to poor acoustic windows. LV: The left ventricular systolic function is normal. The left ventricular ejection fraction is within normal range. LVEF is 60-65%. Aortic Valve: Aortic valve is calcified however cannot analyze further due to suboptimal imaging. Pericardium there is no pericardial effusion Nuclear MPI Stress Test- 11/25/2021: Nuclear MPI findings: Negative for ischemia low risk study. No skin to graphic evidence for myocardial ischemia or scar. Plan: Echocardiogram as above Stress MPI negative for acute ischemia. Troponin negative x3 sets. Electrolytes acceptable at this point Patient is stable from cardiac standpoint. Cardiology will sign off. Please let us know if you need anything else. Patient seen in conjunction with Dr. Jose who agrees with the assessment and management of this patient. - Patient Problems (1) Acute chest pain Current Visit: Yes Status: Acute (2) Diabetes Current Visit: Yes Status: Acute (3) GERD (gastroesophageal reflux disease) Current Visit: Yes Status: Acute Qualifiers: Esophagitis presence: without esophagitis Qualified Code(s): K21.9 - G po-esophageal reflux disease without esophagitis (4) Vascular dementia Current Visit: Yes Status: Acute Qualifiers: Dementia behavioral disturbance: without behavioral disturbance Qualified Code(s): F01.50 - Vascular dementia without behavioral disturbance (5) Diabetes Current Visit: No Status: Acute Subjective Date of service: 11/26/21 Principal diagnosis: Chest Pain Interval history: Patient seen in hospital today. No acute distress Telemetry: Sinus rhythm 80's Objective Vital Signs Temp Pulse Pulse Resp Resp BP BP 11/26/21 11:51 97.8 F 84 14 119/65 11/26/21 10:00 11/26/21 09:55 82 18 11/26/21 08:02 97.5 F L 67 14 115/62 11/26/21 00:16 97.9 F 63 16 121/64 11/25/21 22:00 11/25/21 19:53 98.2 F 74 16 119/66 11/25/21 15:37 982 F H 70 116/61 Pulse Ox 11/26/21 11:51 96 11/26/21 10:00 99 11/26/21 09:55 11/26/21 08:02 95 11/26/21 00:16 97 11/25/21 22:00 99 11/25/21 19:53 95 11/25/21 15:37 - Physical Examination General: No Apparent Distress HEENT: Positive: Normocephaly Neck: Positive: neck supple Cardiac: Positive: Reg Rate and Rhythm, S1/S2 Lungs: Positive: Normal Exam Neuro: Positive: Grossly Intact Abdomen: Positive: Soft Skin: Negative: Rash Extremities: Present: upper extr. pulses. Absent: edema - Imaging and Cardiology EKG: report reviewed Echo: report reviewed - Telemetry EKG Rhythm: Sinus Rhythm - EKG Sinus rhythms and dysrhythmias: sinus rhythm Repolarization changes or abnormalities: nonspecific abnormality, ST segment, and/or T wave - Allied health notes Allied health notes reviewed: nursing
== END 2021-11-26 15:26 | disposition home or self-care (01) | DRG 202 ==
LOC: ED 09:23 → 4A 14:17
PROVIDERS: ADMIT Internal Medicine; ATTEND Internal Medicine
DX: J45.901 Unspecified asthma with (acute) exacerbation (principal); I50.31 Acute diastolic (congestive) heart failure; J44.1 Chronic obstructive pulmonary disease with (acute) exacerbation; I11.0 Hypertensive heart disease with heart failure; E11.9 Type 2 diabetes mellitus without complications; F17.200 Nicotine dependence, unspecified, uncomplicated; E87.5 Hyperkalemia; G20 Parkinson's disease; F01.50 Vascular dementia, unspecified severity, without behavioral disturbance, psychotic disturbance, mood disturbance, and anxiety; I67.2 Cerebral atherosclerosis; K21.9 Gastro-esophageal reflux disease without esophagitis; M19.90 Unspecified osteoarthritis, unspecified site; Z91.018 Allergy to other foods
CPT/HCPCS: 36415; 71045; 71275; 78452; 80053; 82550; 82962; 83735; 83880; 84484; 85025; 85379; 85610; 93005; 93017; 93306; 94640; G0378; J3490; Q9967; A9502; C8929; J1815; J2270; J2785; J2920; J7040